=== PATIENT | female | born 1990 | race Hispanic/Latino ===

== ENCOUNTER 2016-10-25 20:20 | Emergency (ER) | payer MEDICAID ==
[2016-10-25 20:27] VITALS: BMI 38.5
--- NOTE | 2016-10-25 21:14 | ED PDOC ---
Arrival/HPI - General Chief Complaint: Chest Pain Time Seen by Provider: 10/25/16 20:24 Historian: Patient - History of Present Illness Narrative History of Present Illness (Text): 21:14 Leatha Michael is a 25 year old female, P:2 A:2 currently 9 weeks , who presents to the Emergency department complaining of fever and chills for the past few days. Patient also complaining of abdominal cramping and positional chest discomfort, worsened with movement. Intermittent nonproductive cough.Patient was seen by her OBGYN for similar complaints. Patient denies any shortness of breath, nausea, vomiting, diarrhea, urinary symptoms, vaginal bleeding, vaginal discharge, back pain, neck pain, headache, dizziness, or any other complaints. Time/Duration: Other Symptom Onset: Gradual Symptom Course: Unchanged Activities at Onset: Rest, Light Context: Home Past Medical History - Provider Review Nursing Documentation Reviewed: Yes - Infectious Disease Hx of Infectious Diseases: None - Cardiac Hx Cardiac Disorders: Yes (irregular hear rate) - Pulmonary Hx Respiratory Disorders: No - Neurological Hx Neurological Disorder: No Hx Alzheimer's Disease: No - HEENT Hx HEENT Disorder: No - Renal Hx Renal Disorder: No - Endocrine/Metabolic Hx Endocrine Disorders: No - Hematological/Oncological Hx Blood Disorders: No - Integumentary Hx Dermatological Disorder: No - Musculoskeletal/Rheumatological Hx Musculoskeletal Disorders: No - Gastrointestinal Hx Gastrointestinal Disorders: No - Genitourinary/Gynecological Hx Genitourinary Disorders: No - Psychiatric Hx Psychophysiologic Disorder: No Hx Substance Use: No - Surgical History Other/Comment: DNC, gallbladder - Anesthesia Hx Anesthesia: No Hx Anesthesia Reactions: No Hx Malignant Hyperthermia: No Family/Social History - Physician Review Nursing Documentation Reviewed: Yes Family/Social History: No Known Family HX Smoking Status: Never Smoked Hx Alcohol Use: No Hx Substance Use: No Allergies/Home Meds Allergies/Adverse Reactions: Allergies Penicillins Allergy (Verified 10/25/16 20:27) RASH Sulfa (Sulfonamide Antibiotics) Allergy (Verified 10/25/16 20:27) RASH Review of Systems - Physician Review All systems were reviewed & negative as marked: Yes - Review of Systems Constitutional: Fevers, Other (+chills) Eyes: Normal ENT: Normal Respiratory: Cough Cardiovascular: Chest Pain Gastrointestinal: Abdominal Pain. absent: Constipation, Diarrhea, Nausea, Vomiting Genitourinary Female: Normal. absent: Dysuria, Frequency, Hematuria, Urine Output Changes, Vaginal Bleeding, Vaginal Discharge Musculoskeletal: Normal. absent: Back Pain, Neck Pain Skin: Normal. absent: Rash Neurological: Normal. absent: Headache, Dizziness Endocrine: Normal Hemo/Lymphatic: Normal Psychiatric: Normal Physical Exam Vital Signs Reviewed: Yes Vital Signs Temp Pulse Resp BP Pulse Ox 10/25/16 20:27 98.1 F 78 18 121/73 100 Temperature: Afebrile Blood Pressure: Normal Pulse: Regular Respiratory Rate: Normal Appearance: Positive for: Well-Appearing, Non-Toxic, Comfortable Pain Distress: None Mental Status: Positive for: Alert and Oriented X 3 - Systems Exam Head: Present: Atraumatic, Normocephalic Pupils: Present: PERRL Extroacular Muscles: Present: EOMI Conjunctiva: Present: Normal Mouth: Present: Moist Mucous Membranes Neck: Present: Normal Range of Motion Respiratory/Chest: Present: Clear to Auscultation, Good Air Exchange. No: Respiratory Distress, Accessory Muscle Use Cardiovascular: Present: Regular Rate and Rhythm, Normal S1, S2. No: Murmurs Abdomen: Present: Normal Bowel Sounds. No: Tenderness, Distention, Peritoneal Signs Back: Present: Normal Inspection Upper Extremity: Present: Normal Inspection. No: Cyanosis, Edema Lower Extremity: Present: Normal Inspection. No: Edema Neurological: Present: GCS=15, CN II-XII Intact, Speech Normal Skin: Present: Warm, Dry, Normal Color. No: Rashes Psychiatric: Present: Alert, Oriented x 3, Normal Insight, Normal Concentration Medical Decision Making ED Course and Treatment: 10/25/16 21:14 Impression: 25 year old female complaining of fever, chills, positional chest pain worsened with movement, and abdominal cramping for 2 days. Plan: -- EKG -- Labs, cardiac enzymes, beta-HCG -- Urinalysis, urine cultures -- US Age -- Reassess and disposition Progress Notes: Reviewed EKG, NSR at 73 bpm. LAD. No acute changes. 10/25/16 23:08 Reviewed sono, US Age shows: 10 week 6 day single living intrauterine gestation with estimated date of delivery 05/17/17. 10/25/16 23:15 Reviewed labs, within normal limits, beta-hc,186. On re-evaluation, the patient feels better and is in no acute distress. I have discussed the results and plan with the patient, who expresses understanding. Patient in agreement with plan to discharged home. Patient is stable for discharge. Patient was instructed to follow up with physician/OBGYN/clinic in 1- 2 days or return if symptoms worsen or new concerning symptoms arise. - Lab Interpretations Lab Results: 10/25/16 21:01 10/25/16 21:01 Lab Results 10/25/16 21:11: Urine Color Yellow, Urine Appearance Clear, Urine pH 7.0, Ur Specific [place] 1.020, Urine Protein Negative, Urine Glucose (UA) Negative, Urine Ketones Negative, Urine Blood Negative, Urine Nitrate Negative, Urine Bilirubin Negative, Urine Urobilinogen 0.2, Ur Leukocyte Esterase Trace H, Urine RBC Negative, Urine WBC 0 - 2, Ur Epithelial Cells 1 - 3, Urine Bacteria Few, Urine HCG, Qual Positive 10/25/16 21:01: WBC 6.7, RBC 4.10, Hgb 12.3, Hct 36.1, MCV 88.0, MCH 30.0, MCHC 34.1, RDW 13.2, Plt Count 186, MPV 10.0, PT 10.1, INR 0.94, APTT 26.9, Sodium 135, Potassium 3.8, Chloride 104, Carbon Dioxide 22, Anion Gap 13, BUN 11, Creatinine 0.6, Est GFR ( Amer) > 60, Est GFR (Non-Af Amer) > 60, Random Glucose 85, Calcium 9.3, Total Bilirubin 0.8, AST 15, ALT 11, Alkaline Phosphatase 55, Lactate Dehydrogenase 337, Total Creatine Kinase 36, Troponin I < 0.01, Total Protein 7.0, Albumin 3.9, Globulin 3.1, Albumin/Globulin Ratio 1.3 , Beta HCG, Quant 08037.00 H I have reviewed the lab results: Yes - RAD Interpretation Narrative RAD Interpretations (Text): US Age shows: Uterus: Uterus measures approximately 15 x 7 x 11 cm. Gestation: There is a single intrauterine gestation. Gestational sac has mean diameter 54.6 mm. [place] rump length measures approximately 32.5 mm. A yolk sac is present, internal diameter measures approximately 3.5 mm. Adnexa: Left ovary measures approximately 3.51 x 2.5 x 3 cm.There is expected blood flow on Doppler imaging. Right ovary could not be identified IMPRESSION: 10 week 6 day single living intrauterine gestation with estimated date of delivery 05/17/17. 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 Rate : 73 BPM Rhythm : NSR Interpretation : LAD. No acute changes Comparison : No previous EKG for comparison. Interpreted by ED Physician: Yes Type: 12 lead EKG - Medication Orders Current Medication Orders: Discontinued Medications Ondansetron HCl (Zofran Inj) 4 mg IVP ONCE ONE Stop: 10/25/16 22:12 Last Admin: 10/25/16 22:21 Dose: 4 MG IVP Administration Document 10/25/16 22:21 (Rec: 10/25/16 22:21 MR [id number]) Charges for Administration # of IVP Administrations 1 - Scribe Statement The provider has reviewed the documentation as recorded by the Jose Guadalupe Barrett Provider Attestation: All medical record entries made by the Jose Guadalupe were at my direction and personally dictated by me. I have reviewed the chart and agree that the record accurately reflects my personal performance of the history, physical exam, medical decision making, and the department course for this patient. I have also personally directed, reviewed, and agree with the discharge instructions and disposition. Disposition/Present on Arrival - Present on Arrival Any Indicators Present on Arrival: No History of DVT/PE: No History of Uncontrolled Diabetes: No Urinary Catheter: No History of Decub. Ulcer: No History Surgical Site Infection Following: None - Disposition Have Diagnosis and Disposition been Completed?: Yes Diagnosis: First trimester , Bronchitis, Myalgia Disposition: HOME/ ROUTINE Disposition Time: 23:32 Patient Plan: Discharge Condition: GOOD Discharge Instructions (ExitCare): (ED), Acute Bronchitis (ED), Musculoskeletal Pain (ED) Additional Instructions: Rest/drink plenty of fluids/medication as prescribed/tylenol as directed/follow up with your planning specialist doctor this week Prescriptions: Azithromycin [Zithromax] 250 mg PO DAILY #6 tab
[2016-10-25 21:27] LABS: URINE BILIRUBIN NEGATIVE (NEGATIVE); URINE BLOOD NEGATIVE (NEGATIVE); URINE GLUCOSE (UA) NEGATIVE (NEGATIVE); URINE KETONE NEGATIVE (NEGATIVE); URINE LEUKOCYTE ESTERASE TRACE Leu/uL (NEGATIVE); URINE PROTEIN NEGATIVE mg/dL (<30 mg/dL); URINE UROBILINOGEN 0.2 E.U./dL (<1 E.U./dL)
[2016-10-25 21:27] LABS: HEMATOCRIT 36.1 % (36.0-48.0); MEAN CORPUSCULAR HGB CONC 34.1 g/dl (31.0-37.0); RED CELL DISTRIBUTION WIDTH 13.2 % (11.5-14.5); WHITE BLOOD COUNT 6.7 10^3/ul (4.5-11.0)
[2016-10-25 21:28] LABS: ALB/GLOB RATIO 1.3 (1.1-1.8); ALKALINE PHOSPHATASE 55 U/L (38-133); ALT/SGPT 11 U/L (7-56); AST/SGOT 15 U/L (15-39); BILIRUBIN,TOTAL 0.8 mg/dL (0.2-1.3); BLOOD UREA NITROGEN 11 mg/dL (7-21); CALCIUM 9.3 mg/dL (8.4-10.5); CARBON DIOXIDE 22 mmol/L (21-33); CHLORIDE 104 mmol/L (98-107); GFR AFRICAN-AMERICAN > 60; GLUCOSE,RANDOM 85 mg/dL (70-110); POTASSIUM 3.8 mmol/L (3.6-5.0); SODIUM 135 mmol/L (132-148)
[2016-10-25 21:30] LABS: URINE APPEARANCE CLEAR (CLEAR); URINE COLOR YELLOW (YELLOW)
[2016-10-25 21:39] LABS: TROPONIN I < 0.01 ng/mL
[2016-10-25 21:40] LABS: INR 0.94 (0.93-1.08); PARTIAL THROMBOPLASTIN TIME 26.9 Seconds (23.7-30.8)
[2016-10-25 21:41] LABS: URINE BACTERIA FEW (NEG); URINE RBC NEGATIVE /hpf (0-2); URINE WBC 0 - 2 /hpf (0-6)
--- NOTE | 2016-10-25 22:58 | US ---
EXAM: US First Trimester, Transabdominal. CLINICAL HISTORY: 25 years old, female; Pain; complicated by abdominal or pelvic pain; Lower; First trimester; Gestational age or lmp: 08/19/2016, 9 weeks 4 days by dates; TECHNIQUE: Real-time transabdominal obstetrical ultrasound of the maternal pelvis and a first trimester with image documentation. EXAM DATE/TIME: 10/25/2016 8:40 PM COMPARISON: There are no prior studies for comparison. FINDINGS: Uterus: Uterus measures approximately 15 x 7 x 11 cm. Gestation: There is a single intrauterine gestation. Gestational sac has mean diameter 54.6 mm. [place] rump length measures approximately 32.5 mm. A yolk sac is present, internal diameter measures approximately 3.5 mm. Adnexa: Left ovary measures approximately 3.51 x 2.5 x 3 cm.There is expected blood flow on Doppler imaging. Right ovary could not be identified IMPRESSION: 10 week 6 day single living intrauterine gestation with estimated date of delivery 05/17/17
[2016-10-26 00:22] VITALS: BP 102/76; PULSE 80; RESP 17; TEMP 98.5; O2SAT 96
--- NOTE | 2016-10-26 20:07 | CARD ---
APPROVED REPORT EKG Measurement Heart [id number] <Conclusion> Normal sinus rhythm Left axis deviation Abnormal ECG
== END 2016-10-26 00:22 | disposition home or self-care (01) ==
LOC: ED 20:20 → MERGE 20:20 → ED 10-26 00:22
DX: O26.891 Other specified pregnancy related conditions, first trimester (principal); Z3A.09 9 weeks gestation of pregnancy; M79.1 Myalgia; J40 Bronchitis, not specified as acute or chronic
CPT/HCPCS: 76815; 80053; 81001; 82550; 83615; 84484; 84702; 84703; 85027; 85610; 85730; 87086; 93005; 96374; 99284; J2405

== ENCOUNTER 2016-11-09 20:35 | Observation (INO) | payer MEDICAID ==
[2016-11-09 20:51] VITALS: BMI 39.2
--- NOTE | 2016-11-09 21:36 | ED PDOC ---
Arrival/HPI - General Chief Complaint: Abdominal Pain Time Seen by Provider: 11/09/16 21:18 Historian: Patient - History of Present Illness Narrative History of Present Illness (Text): 11/09/16 21:36 Leatha Michael is a 25 year old female, P:2 A:2 currently 12 weeks , who presents to the Emergency department complaining of abdominal cramping for the past few days. Patient also reports associated nausea, 2 episodes of vomiting, and diarrhea. Patient denies any vaginal discharge, vaginal bleeding, fever, chills, chest pain, shortness of breath, urinary symptoms, back pain, neck pain, headache, dizziness, or any other complaints. Time/Duration: Other (few days) Symptom Onset: Gradual Symptom Course: Unchanged Activities at Onset: Rest, Light Context: Home Past Medical History - Provider Review Nursing Documentation Reviewed: Yes - Infectious Disease Hx of Infectious Diseases: None - Cardiac Hx Cardiac Disorders: Yes (irregular hear rate) - Pulmonary Hx Respiratory Disorders: No - Neurological Hx Neurological Disorder: No Hx Alzheimer's Disease: No - HEENT Hx HEENT Disorder: No - Renal Hx Renal Disorder: No - Endocrine/Metabolic Hx Endocrine Disorders: No - Hematological/Oncological Hx Blood Disorders: No - Integumentary Hx Dermatological Disorder: No - Musculoskeletal/Rheumatological Hx Musculoskeletal Disorders: No - Gastrointestinal Hx Gastrointestinal Disorders: No - Genitourinary/Gynecological Hx Genitourinary Disorders: No - Psychiatric Hx Psychophysiologic Disorder: No Hx Substance Use: No - Surgical History Other/Comment: DNC, gallbladder - Anesthesia Hx Anesthesia: No Hx Anesthesia Reactions: No Hx Malignant Hyperthermia: No Family/Social History - Physician Review Nursing Documentation Reviewed: Yes Family/Social History: No Known Family HX Smoking Status: Never Smoked Hx Alcohol Use: No Hx Substance Use: No Allergies/Home Meds Allergies/Adverse Reactions: Allergies Penicillins Allergy (Verified 10/25/16 20:27) RASH Sulfa (Sulfonamide Antibiotics) Allergy (Verified 10/25/16 20:27) RASH Review of Systems - Physician Review All systems were reviewed & negative as marked: Yes - Review of Systems Constitutional: Normal. absent: Fevers Eyes: Normal ENT: Normal Respiratory: Normal. absent: SOB, Cough Cardiovascular: Normal. absent: Chest Pain Gastrointestinal: Abdominal Pain, Diarrhea, Nausea, Vomiting Genitourinary Female: Normal. absent: Dysuria, Frequency, Hematuria, Urine Output Changes, Vaginal Bleeding, Vaginal Discharge Musculoskeletal: Normal. absent: Back Pain, Neck Pain Skin: Normal. absent: Rash Neurological: Normal. absent: Headache, Dizziness Endocrine: Normal Hemo/Lymphatic: Normal Psychiatric: Normal Physical Exam Vital Signs Reviewed: Yes Vital Signs Temp Pulse Resp BP Pulse Ox 11/10/16 06:00 78 16 118/72 11/10/16 04:00 84 18 106/64 11/10/16 02:00 88 18 112/66 11/10/16 00:43 98.0 F 92 H 17 100/58 L 97 11/09/16 20:52 98.2 F 98 H 17 118/72 98 Temperature: Afebrile Blood Pressure: Normal Pulse: Regular Respiratory Rate: Normal Appearance: Positive for: Well-Appearing, Non-Toxic, Comfortable Pain Distress: None Mental Status: Positive for: Alert and Oriented X 3 - Systems Exam Head: Present: Atraumatic, Normocephalic Pupils: Present: PERRL Extroacular Muscles: Present: EOMI Conjunctiva: Present: Normal Mouth: Present: Moist Mucous Membranes Neck: Present: Normal Range of Motion Respiratory/Chest: Present: Clear to Auscultation, Good Air Exchange. No: Respiratory Distress, Accessory Muscle Use Cardiovascular: Present: Regular Rate and Rhythm, Normal S1, S2. No: Murmurs Abdomen: Present: Normal Bowel Sounds. No: Tenderness, Distention, Peritoneal Signs Back: Present: Normal Inspection Upper Extremity: Present: Normal Inspection. No: Cyanosis, Edema Lower Extremity: Present: Normal Inspection. No: Edema Neurological: Present: GCS=15, CN II-XII Intact, Speech Normal Skin: Present: Warm, Dry, Normal Color. No: Rashes Psychiatric: Present: Alert, Oriented x 3, Normal Insight, Normal Concentration Medical Decision Making ED Course and Treatment: 11/09/16 21:36 Impression: 25 year old female complaining of lower abdominal cramping, nausea, vomiting, and diarrhea. Differential Diagnosis included but are not limited to: Plan: -- US Age -- Labs, Beta-HCG, lipase -- Urinalysis -- IV fluids -- Zofran -- Reassess and disposition Prior Visits: Notes and results from previous visits were reviewed. Progress Notes: 11/09/16 23:41 Reviewed sono, US Age shows: Single live IUP 11 weeks 5 days + / -6 days. - Lab Interpretations Lab Results: 11/09/16 21:50 11/09/16 21:50 Lab Results 11/09/16 21:50: WBC 7.1, RBC 4.02, Hgb 12.1, Hct 35.0 L, MCV 87.1, MCH 30.1, MCHC 34.6, RDW 13.2, Plt Count 173, MPV 10.1, Sodium 134, Potassium 3.4 L, Chloride 103, Carbon Dioxide 25, Anion Gap 9 L, BUN 7, Creatinine 0.6, Est GFR ( Amer) > 60, Est GFR (Non-Af Amer) > 60, Random Glucose 85, Calcium 8.8, Total Bilirubin 1.1, AST 17, ALT 26, Alkaline Phosphatase 59, Total Protein 7.0 , Albumin 3.7, Globulin 3.2, Albumin/Globulin Ratio 1.2, Lipase 67, Beta HCG, Quant 07765.00 H I have reviewed the lab results: Yes - RAD Interpretation Narrative RAD Interpretations (Text): US Age shows: Prior ultrasound 10/25/2016 demonstrated a single IUP 10 weeks 6 day. The uterus measures 18 x 8 by 11 cm. The cervix measures 4 cm. There is a live intrauterine . Measurements correspond to a gestational age of 11 weeks 5 days + / -6 days. A heart rate of 151 - 168 beats per minute was obtained. The maternal right ovary is normal. The maternal left ovary is normal. Color flow and doppler vascular waveforms were demonstrated to both ovaries. IMPRESSION: Single live IUP 11 weeks 5 days + / -6 days. 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 - Medication Orders Current Medication Orders: Discontinued Medications Acetaminophen (Tylenol 325mg Tab) 650 mg PO STAT STA Stop: 11/10/16 00:48 Last Admin: 11/10/16 00:59 Dose: 650 MG Famotidine (Pepcid) 20 mg IVP STAT STA Stop: 11/10/16 00:48 Last Admin: 11/10/16 00:59 Dose: 20 MG IVP Administration Document 11/10/16 00:59 FROY (Rec: 11/10/16 00:59 FROY [id number]) Charges for Administration # of IVP Administrations 1 Sodium Chloride (Sodium Chloride 0.9%) 1,000 mls @ 999 mls/hr IV .Q1H1M STA Stop: 11/09/16 22:43 Last Admin: 11/09/16 22:01 Dose: 999 MLS/HR eMAR Start Stop Document 11/09/16 22:01 FROY (Rec: 11/09/16 22:02 [id number] [id number]) Intravenous Solution Start Date 11/09/16 Start Time 22:02 End Date 11/09/16 End time 23:02 Total Infusion Time 60 Sodium Chloride (Sodium Chloride 0.9%) 1,000 mls @ 999 mls/hr IV .Q1H1M STA Stop: 11/10/16 01:47 Last Admin: 11/10/16 01:00 Dose: 999 MLS/HR eMAR Start Stop Document 11/10/16 01:00 FROY (Rec: 11/10/16 01:00 FROY [id number]) Intravenous Solution Start Date 11/10/16 Start Time 01:00 End Date 11/10/16 End time 02:00 Total Infusion Time 60 Ondansetron HCl (Zofran Inj) 4 mg IVP ONCE ONE Stop: 11/09/16 21:44 Last Admin: 11/09/16 22:01 Dose: 4 MG IVP Administration Document 11/09/16 22:01 FROY (Rec: 11/09/16 22:01 FROY [id number]) Charges for Administration # of IVP Administrations 1 ED OBSERVATION Discharge: Yes Date of observation admission: 11/09/16 Time of observation admission: 22:00 - Observation admission statement Patient is being placed in observation because:: evaluation of abdominal pain/nausea/vomiting - Goals of Observation Goals of observation are:: determine cause/treat symptoms - Progress Note Progress Note: 11/09/16 22:00 Pt resting comfortably, in no acute distress. 11/10/16 00:00 Pt resting comfortably, in no acute distress. 11/10/16 02:00 Pt resting comfortably, in no acute distress. 11/10/16 04:00 Pt resting comfortably, in no acute distress. 11/10/16 06:22 On re-evaluation, the patient feels better and is in no acute distress. I have discussed the results and plan with the patient, who expresses understanding. Patient in agreement with plan to discharged home. Patient is stable for discharge. Patient was instructed to follow up with physician/OBGYN/clinic in 1- 2 days or return if symptoms worsen or new concerning symptoms arise. - Scribe Statement The provider has reviewed the documentation as recorded by the Jose Guadalupe Barrett Provider Attestation: All medical record entries made by the Jose Guadalupe were at my direction and personally dictated by me. I have reviewed the chart and agree that the record accurately reflects my personal performance of the history, physical exam, medical decision making, and the department course for this patient. I have also personally directed, reviewed, and agree with the discharge instructions and disposition. Disposition/Present on Arrival - Present on Arrival Any Indicators Present on Arrival: No History of DVT/PE: No History of Uncontrolled Diabetes: No Urinary Catheter: No History of Decub. Ulcer: No History Surgical Site Infection Following: None - Disposition Have Diagnosis and Disposition been Completed?: Yes Diagnosis: Gastroenteritis Disposition: HOME/ ROUTINE Disposition Time: 06:24 Patient Plan: Discharge Condition: GOOD
[2016-11-09] MEDS ORDERED: Sodium Chloride 0.9% 1,000 ML IV STA (21:43)
[2016-11-09 22:10] LABS: MEAN CELL VOLUME 87.1 fL (80.0-105.0); MEAN CORPUSCULAR HEMOGLOBIN 30.1 pg (25.0-35.0); MEAN CORPUSCULAR HGB CONC 34.6 g/dl (31.0-37.0); MEAN PLATELET VOLUME 10.1 fl (7.0-11.0); RED CELL DISTRIBUTION WIDTH 13.2 % (11.5-14.5); WHITE BLOOD COUNT 7.1 10^3/ul (4.5-11.0)
[2016-11-09 22:20] LABS: ALB/GLOB RATIO 1.2 (1.1-1.8); ALKALINE PHOSPHATASE 59 U/L (38-133); ALT/SGPT 26 U/L (7-56); AST/SGOT 17 U/L (15-39); BILIRUBIN,TOTAL 1.1 mg/dL (0.2-1.3); BLOOD UREA NITROGEN 7 mg/dL (7-21); CALCIUM 8.8 mg/dL (8.4-10.5); CARBON DIOXIDE 25 mmol/L (21-33); CHLORIDE 103 mmol/L (98-107); GFR AFRICAN-AMERICAN > 60; GLUCOSE,RANDOM 85 mg/dL (70-110); LIPASE 67 U/L (23-300); POTASSIUM 3.4 mmol/L (3.6-5.0); SODIUM 134 mmol/L (132-148)
--- NOTE | 2016-11-09 23:27 | US ---
EXAM: US After First Trimester, Transabdominal CLINICAL HISTORY: 25 years old, female; Pain; Other: Cramping; Gestational age or lmp: 08/19/2016; TECHNIQUE: Real-time transabdominal obstetrical ultrasound of the maternal pelvis and a second or third trimester with image documentation. EXAM DATE/TIME: 11/09/2016 9:45 PM COMPARISON: US - AGE 310/25/2016 9:57:23 PM FINDINGS: Prior ultrasound 10/25/2016 demonstrated a single IUP 10 weeks 6 day. The uterus measures 18 x 8 by 11 cm. The cervix measures 4 cm. There is a live intrauterine . Measurements correspond to a gestational age of 11 weeks 5 days + / -6 days. A heart rate of 151 - 168 beats per minute was obtained. The maternal right ovary is normal. The maternal left ovary is normal. Color flow and doppler vascular waveforms were demonstrated to both ovaries. IMPRESSION: Single live IUP 11 weeks 5 days + / -6 days.
[2016-11-10 00:44] VITALS: TEMP 98; O2SAT 97
[2016-11-10] MEDS ORDERED: Sodium Chloride 0.9% 1,000 ML IV STA (00:47)
[2016-11-10 01:05] LABS: URINE BILIRUBIN NEGATIVE (NEGATIVE); URINE BLOOD NEGATIVE (NEGATIVE); URINE GLUCOSE (UA) NEGATIVE (NEGATIVE); URINE KETONE NEGATIVE (NEGATIVE); URINE LEUKOCYTE ESTERASE NEGATIVE Leu/uL (NEGATIVE); URINE PROTEIN NEGATIVE mg/dL (<30 mg/dL)
[2016-11-10 01:06] LABS: URINE APPEARANCE CLEAR (CLEAR); URINE COLOR YELLOW (YELLOW)
[2016-11-10 06:31] VITALS: BP 118/72; PULSE 78; RESP 16
== END 2016-11-10 06:28 | disposition home or self-care (01) ==
LOC: ED 20:35 → EROBSV 22:00
PROVIDERS: ADMIT Emergency Medicine; ATTEND Emergency Medicine
DX: K52.9 Noninfective gastroenteritis and colitis, unspecified (principal); O26.91 Pregnancy related conditions, unspecified, first trimester; Z3A.11 11 weeks gestation of pregnancy
CPT/HCPCS: 76815; 80053; 81003; 83690; 84702; 85027; 96361; 96374; 96375; 99281; G0378; J2405; J7040

== ENCOUNTER 2016-12-30 15:22 | Emergency (ER) | payer MEDICAID ==
[2016-12-30 15:23] VITALS: BMI 39.2
--- NOTE | 2016-12-30 15:45 | ED PDOC ---
Arrival/HPI - General Time Seen by Provider: 12/30/16 15:38 Historian: Patient - History of Present Illness Narrative History of Present Illness (Text): 12/30/16 15:58 26 year old female, 20 weeks , whose past medical history includes atrial fibrillation, taken off Coumadin due to , presents to the emergency department with midsternal chest pain that began 1-2 hours prior to arrival. Patient describes the pain as sharp, which began while lying down. Patient also reports leg swelling L worse than R. Denies vaginal bleeding. Patient states she had similar chest pain 1 month ago and is currently undergoing evaluation by valve inspector and recently underwent 24 hour holter monitoring, does not have result. Had echo recently. Patient reports the pain has improved. No other complaints. 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 Time/Duration: 1-3 hours Symptom Onset: Sudden Symptom Course: Improving Modifying Factors (Text): None Associated Symptoms (Text): None Past Medical History - Provider Review Nursing Documentation Reviewed: Yes - Infectious Disease Hx of Infectious Diseases: None - Cardiac Hx Cardiac Disorders: Yes (irregular hear rate) - Pulmonary Hx Respiratory Disorders: No - Neurological Hx Neurological Disorder: No Hx Alzheimer's Disease: No - HEENT Hx HEENT Disorder: No - Renal Hx Renal Disorder: No - Endocrine/Metabolic Hx Endocrine Disorders: No - Hematological/Oncological Hx Blood Disorders: No - Integumentary Hx Dermatological Disorder: No - Musculoskeletal/Rheumatological Hx Musculoskeletal Disorders: No - Gastrointestinal Hx Gastrointestinal Disorders: No - Genitourinary/Gynecological Hx Genitourinary Disorders: No - Psychiatric Hx Psychophysiologic Disorder: No Hx Substance Use: No - Surgical History Other/Comment: DNC, gallbladder - Anesthesia Hx Anesthesia: No Hx Anesthesia Reactions: No Hx Malignant Hyperthermia: No Family/Social History - Physician Review Nursing Documentation Reviewed: Yes Family/Social History: Unknown Family HX Smoking Status: Never Smoked Hx Alcohol Use: No Hx Substance Use: No Allergies/Home Meds Allergies/Adverse Reactions: Allergies Penicillins Allergy (Verified 12/30/16 16:37) RASH Sulfa (Sulfonamide Antibiotics) Allergy (Verified 12/30/16 16:37) RASH Home Medications: Home Meds Medication Instructions Recorded Confirmed Vit Calc,Iron,Folic 1 each PO DAILY 12/30/16 12/30/16 [ Vitamins] Review of Systems - Physician Review All systems were reviewed & negative as marked: Yes - Review of Systems Respiratory: absent: SOB Cardiovascular: Chest Pain, Edema Genitourinary Female: absent: Vaginal Bleeding Physical Exam - Physical Exam Narrative Physical Exam (Text): Constitutional: No acute distress. Head: Normocephalic. Atraumatic. Eyes: PERRL. ENT: Moist mucous membranes. Neck: Supple. Cardiovascular: Regular rate. Chest: Reproducible chest tenderness, reproducible pain with pectoral muscle use Respiratory: Clear to auscultation bilaterally. GI: Soft. Nontender. Nondistended. Back: No CVA tenderness. Musculoskeletal: No tenderness or swelling of extremities. Skin: No rash. Neurologic: Alert, no focal deficit. Vital Signs Reviewed: Yes Vital Signs Temp Pulse Resp BP Pulse Ox 12/30/16 15:51 98.4 F 85 20 113/70 98 Temperature: Afebrile Blood Pressure: Normal Pulse: Regular Respiratory Rate: Normal Appearance: Positive for: Well-Appearing, Non-Toxic, Comfortable Pain Distress: None Mental Status: Positive for: Alert and Oriented X 3 Medical Decision Making ED Course and Treatment: Impression: 26 year old female, 20 weeks , whose past medical history includes atrial fibrillation, taken off Coumadin due to , presents to the emergency department with midsternal chest pain that began 1-2 hours prior to arrival with report of leg swelling. Differential Diagnosis included but are not limited to: Plan: -- EKG, US duplex lower extremities -- Labs -- Reassess and disposition Prior Visits: Notes and results from previous visits were reviewed. Patient last seen in the ED on 11/09/16 for abdominal pain and discharged home. Progress Notes: EKG shows NSR at 85 BPM, no ST/T wave changes, interpreted by me. 12/30/16 17:29 As per tech, ultrasound negative for DVT bilaterally. D dimer negative. labs unremarkable. Patient with reproducible chest pain and under the care of a valve inspector. I had a long discussion with the patient concerning differential diagnosis (DVT/PE/ACS) and the risk of various studies on fetus. Patient was agreeable to d dimer and US to evaluate for PE/DVT. She is comfortable with discharge home and follow up with her valve inspector. Return to ER for worsening dyspnea, pain, fever, vomiting, bleeding, or any other problem. - Lab Interpretations Lab Results: 12/30/16 15:45 12/30/16 15:45 Lab Results 12/30/16 15:45: Sodium 137, Potassium 3.5 L, Chloride 108, Carbon Dioxide 22, Anion Gap 11, BUN 8, Creatinine 0.6, Est GFR ( Amer) > 60, Est GFR (Non- Af Amer) > 60, Random Glucose 97, Calcium 8.9, Total Bilirubin 1.0, AST 15, ALT 26, Alkaline Phosphatase 62, Total Protein 6.9, Albumin 3.7, Globulin 3.1, Albumin/Globulin Ratio 1.2 12/30/16 15:45: D-Dimer, Quantitative 0.35 12/30/16 15:45: WBC 6.9, RBC 3.90, Hgb 12.1, Hct 34.7 L, MCV 89.0, MCH 31.0, MCHC 34.9, RDW 13.3, Plt Count 184, MPV 10.8, Gran % 72.3 H, Lymph % (Auto) 21.5 L, [place] % (Auto) 5.5, Eos % (Auto) 0.6 L, Baso % (Auto) 0.1, Gran # 5.01, Lymph # 1.5, Kinney # 0.4, Eos # 0.0, Baso # 0.01 - RAD Interpretation Radiology Orders: 12/30/16 16:05 DUPLEX LOWER EXTRM VEIN BILAT [US] Stat - EKG Interpretation Interpreted by ED Physician: Yes Type: 12 lead EKG - Scribe Statement The provider has reviewed the documentation as recorded by the Jose Guadalupe Tavares Provider Scribe Attestation: All medical record entries made by the Jose Guadalupe were at my direction and personally dictated by me. I have reviewed the chart and agree that the record accurately reflects my personal performance of the history, physical exam, medical decision making, and the department course for this patient. I have also personally directed, reviewed, and agree with the discharge instructions and disposition. Disposition/Present on Arrival - Present on Arrival Any Indicators Present on Arrival: No History of DVT/PE: No History of Uncontrolled Diabetes: No Urinary Catheter: No History Surgical Site Infection Following: None - Disposition Have Diagnosis and Disposition been Completed?: Yes Diagnosis: Chest pain Disposition: HOME/ ROUTINE Disposition Time: 17:29 Patient Plan: Discharge Condition: STABLE Discharge Instructions (ExitCare): Chest Pain (ED) Referrals: Arnulfo Duncan MD [Primary Care Provider] - Follow up with primary
[2016-12-30 15:52] VITALS: TEMP 98.4; O2SAT 98
[2016-12-30 16:11] LABS: ADD MANUAL DIFF? NO
[2016-12-30 16:17] LABS: BASO # 0.01 K/mm3 (0.0-2.0); BASO % 0.1 % (0.0-3.0); EOS % 0.6 % (1.5-5.0); GRAN # 5.01 (1.4-6.5); GRAN % 72.3 % (50.0-68.0); HEMATOCRIT 34.7 % (36.0-48.0); LYMPH # 1.5 (1.2-3.4); LYMPH % 21.5 % (22.0-35.0); MEAN CORPUSCULAR HGB CONC 34.9 g/dl (31.0-37.0); MEAN PLATELET VOLUME 10.8 fl (7.0-11.0); MONO # 0.4 (0.1-0.6); MONO % 5.5 % (1.0-6.0); PLATELET COUNT 184 10^3/uL (120.0-450.0); RED CELL DISTRIBUTION WIDTH 13.3 % (11.5-14.5); WHITE BLOOD COUNT 6.9 10^3/ul (4.5-11.0)
[2016-12-30 16:23] LABS: ALB/GLOB RATIO 1.2 (1.1-1.8); ALKALINE PHOSPHATASE 62 U/L (38-133); ALT/SGPT 26 U/L (7-56); AST/SGOT 15 U/L (15-39); BLOOD UREA NITROGEN 8 mg/dL (7-21); CALCIUM 8.9 mg/dL (8.4-10.5); CARBON DIOXIDE 22 mmol/L (21-33); CHLORIDE 108 mmol/L (95-110); GFR AFRICAN-AMERICAN > 60; GLUCOSE,RANDOM 97 mg/dL (70-110); POTASSIUM 3.5 mmol/L (3.6-5.0); SODIUM 137 mmol/L (132-148); TOTAL PROTEIN 6.9 g/dL (5.8-8.3)
[2016-12-30 17:58] VITALS: BP 115/68; PULSE 79; RESP 18
--- NOTE | 2016-12-30 18:28 | US ---
HISTORY: Leg pain and swelling. Evaluate for DVT PHYSICIAN(S): Servando Robledo MD. TECHNIQUE: Duplex sonography and color-flow Doppler with graded compression were used to evaluate the deep venous systems of both lower extremities. FINDINGS: The visualized deep venous systems of both lower extremities are sonographically normal and compressible. Normal wave forms and augmentation are seen. There is no sonographic evidence for deep venous thrombosis in the visualized segments of both lower extremities. IMPRESSION: No sonographic evidence for deep venous thrombosis in the visualized segments of both lower extremities.
--- NOTE | 2016-12-31 14:13 | CARD ---
APPROVED REPORT EKG Measurement Heart [id number] <Conclusion> Normal sinus rhythm Low voltage QRS Borderline ECG
== END 2016-12-30 18:04 | disposition home or self-care (01) ==
LOC: ED 15:22
DX: R07.9 Chest pain, unspecified (principal); O26.92 Pregnancy related conditions, unspecified, second trimester; Z3A.20 20 weeks gestation of pregnancy

== ENCOUNTER 2017-06-23 20:11 | Observation (INO) | payer MEDICAID ==
[2017-06-23 20:21] VITALS: BMI 39.6
--- NOTE | 2017-06-23 21:07 | ED PDOC ---
Arrival/HPI - General Chief Complaint: Chest Pain Time Seen by Provider: 06/23/17 20:27 Historian: Patient - History of Present Illness Narrative History of Present Illness (Text): 06/23/17 21:03 26 year old female, whose past medical history includes hypertension, atrial fibrillation (diagnosed 1 year ago), anemia and syncope, presents to the emergency department complaining of chest pain and dizziness for several days. Patient reports she fall last night. She states she was supposedly getting holter monitor by her cardiologists Dr. [facility]. Patient had rapid ventricular reasoned and was on Atenolol, but stopped due to and was not placed on it again. Patient reports loss of appetite recently and dry cough, but denies any fever, chills, nausea, vomiting, any history of GI bleed, denies having stress test done, and any other complaints. 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 Time/Duration: Other (several days) Symptom Onset: Gradual Activities at Onset: Light Context: Home Past Medical History - Provider Review Nursing Documentation Reviewed: Yes - Infectious Disease Hx of Infectious Diseases: None - Cardiac Hx Cardiac Disorders: Yes (irregular hear rate) - Pulmonary Hx Respiratory Disorders: No - Neurological Hx Alzheimer's Disease: No - HEENT Hx HEENT Disorder: No - Renal Hx Renal Disorder: No - Endocrine/Metabolic Hx Endocrine Disorders: No - Hematological/Oncological Hx Blood Disorders: No - Integumentary Hx Dermatological Disorder: No - Musculoskeletal/Rheumatological Hx Musculoskeletal Disorders: No - Gastrointestinal Hx Gastrointestinal Disorders: No - Genitourinary/Gynecological Hx Genitourinary Disorders: No - Psychiatric Hx Psychophysiologic Disorder: No Hx Substance Use: No - Surgical History Hx Cholecystectomy: Yes - Anesthesia Hx Anesthesia: No Hx Anesthesia Reactions: No Hx Malignant Hyperthermia: No Family/Social History - Physician Review Nursing Documentation Reviewed: Yes Family/Social History: No Known Family HX Smoking Status: Never Smoked Hx Alcohol Use: No Hx Substance Use: No Allergies/Home Meds Allergies/Adverse Reactions: Allergies Penicillins Allergy (Verified 03/17/17 21:45) RASH Sulfa (Sulfonamide Antibiotics) Allergy (Verified 03/17/17 21:45) RASH Home Medications: Home Meds Medication Instructions Recorded Confirmed Levothyroxine [Synthroid] 50 mcg PO DAILY 08/11/17 11/17/17 Review of Systems - Physician Review All systems were reviewed & negative as marked: Yes - Review of Systems Constitutional: absent: Fevers, Other (Chills) Respiratory: Cough (Dry cough) Cardiovascular: Chest Pain Gastrointestinal: Appetite Changes (Loss of appetite). absent: Nausea, Vomiting Physical Exam Vital Signs Reviewed: Yes Vital Signs Temp Pulse Resp BP Pulse Ox 06/23/17 21:45 55 L 16 120/71 97 06/23/17 20:34 98.2 F 58 L 22 124/81 96 Temperature: Afebrile Blood Pressure: Normal Pulse: Bradycardic Respiratory Rate: Normal Appearance: Positive for: Well-Appearing, Non-Toxic, Other (Obese) Pain Distress: None Mental Status: Positive for: Alert and Oriented X 3 - Systems Exam Head: Present: Atraumatic, Normocephalic Pupils: Present: PERRL Extroacular Muscles: Present: EOMI Conjunctiva: Present: Normal Mouth: Present: Moist Mucous Membranes Neck: Present: Normal Range of Motion Respiratory/Chest: Present: Clear to Auscultation, Good Air Exchange. No: Respiratory Distress, Accessory Muscle Use Cardiovascular: Present: Regular Rate and Rhythm, Normal S1, S2. No: Murmurs Abdomen: Present: Normal Bowel Sounds. No: Tenderness, Distention, Peritoneal Signs Back: Present: Normal Inspection Upper Extremity: Present: Normal Inspection. No: Cyanosis, Edema Lower Extremity: Present: Normal Inspection. No: Edema Neurological: Present: GCS=15, Speech Normal, Motor Func Grossly Intact Skin: Present: Warm, Dry, Normal Color. No: Rashes Psychiatric: Present: Alert, Oriented x 3, Normal Insight, Normal Concentration Medical Decision Making ED Course and Treatment: 06/23/17 21:03 Impression: 26 year old female presents complaining of chest pain for the past several days. Patient hx of Afib. Plan: -- EKG -- Labs -- Chest X-ray -- Urinalysis -- Reassess and disposition Prior Visits: Notes and results from previous visits were reviewed. Patient was last seen in the emergency department on 06/11/17 complaining of intermittent episodes of dizziness and midsternal chest pain that began yesterday. Progress Notes: EKG shows Sinus Bradycardic at 55 BPM with non-specific plate 3aVF and V3. QTC normal. P wave normal. Normal Intervals. Interpreted by me. Patient states she will check with certified nurse midwife for monitoring manager. Patient will be admitted for syncope and certified nurse midwife consult. - Lab Interpretations Microbiology Results: Microbiology Results 06/23/17 21:05 Urine,Clean Catch Urine Culture - Final Corynebacterium Species Lab Results: 06/23/17 21:11 06/23/17 21:11 Lab Results 06/23/17 21:11: Sodium 142, Potassium 4.0, Chloride 106, Carbon Dioxide 29, Anion Gap 11, BUN 11, Creatinine 0.9, Est GFR ( Amer) > 60, Est GFR (Non- Af Amer) > 60, Random Glucose 94, Calcium 9.7, Magnesium 2.0, Total Bilirubin 1.1, AST 42 H D, ALT 58 H, Alkaline Phosphatase 93, Lactate Dehydrogenase 484, Total Creatine Kinase 50, Troponin I < 0.01, NT-Pro-B Natriuret Pep 67.3, Total Protein 7.4, Albumin 4.2, Globulin 3.2, Albumin/Globulin Ratio 1.3 06/23/17 21:11: Urine Color Yellow, Urine Appearance Clear, Urine pH 7.0, Ur Specific [place] 1.020, Urine Protein Negative, Urine Glucose (UA) Negative, Urine Ketones Negative, Urine Blood Small H, Urine Nitrate Negative, Urine Bilirubin Negative, Urine Urobilinogen 0.2, Ur Leukocyte Esterase Trace H, Urine RBC 2 - 5, Urine WBC 0 - 2, Ur Epithelial Cells 6 - 8, Urine Bacteria Mod 06/23/17 21:11: APTT 31.5 06/23/17 21:11: WBC 6.7, RBC 4.67, Hgb 13.0, Hct 40.1, MCV 85.9, MCH 27.8, MCHC 32.4, RDW 14.8 H, Plt Count 193, MPV 10.9, Gran % 52.8, Lymph % (Auto) 37.7 H, [place] % (Auto) 6.5 H, Eos % (Auto) 2.4, Baso % (Auto) 0.6, Gran # 3.55, Lymph # 2.5, [place] # 0.4, Eos # 0.2, Baso # 0.04 I have reviewed the lab results: Yes - RAD Interpretation Radiology Orders: 06/23/17 20:42 CHEST PORTABLE [RAD] Stat - EKG Interpretation Interpreted by ED Physician: Yes Type: 12 lead EKG - Medication Orders Current Medication Orders: Discontinued Medications Al Hydrox/Mg Hydrox/Simethicone (Maalox Plus 30 Ml) 30 ml PO STAT STA Stop: 06/23/17 22:04 Last Admin: 06/23/17 22:22 Dose: 30 ml Aspirin (Aspirin Chewable) 324 mg PO STAT STA Stop: 06/23/17 22:03 Last Admin: 06/23/17 22:22 Dose: 324 mg Aspirin (Ecotrin) 81 mg PO DAILY [facility] Last Admin: 06/24/17 10:46 Dose: 81 mg Sodium Chloride (Sodium Chloride 0.9%) 1,000 mls @ 999 mls/hr IV .Q1H1M STA Stop: 06/23/17 22:59 Last Admin: 06/23/17 22:05 Dose: 999 mls/hr eMAR Start Stop Document 06/23/17 22:05 YP (Rec: 06/23/17 22:05 YP [id number]) Intravenous Solution Start Date 06/23/17 Start Time 22:05 End Date 06/23/17 End time 23:05 Total Infusion Time 60 Ibuprofen (Motrin Tab) 400 mg PO Q6H PRN PRN Reason: Pain, moderate (4-7) Last Admin: 06/24/17 09:46 Dose: 400 mg [facility] Pain/Vitals Document 06/24/17 09:46 SG (Rec: 06/24/17 09:46 SG [id number]) Pain Reassessment Is This A Pain ReAssessment? No Sleep Is patient sleeping during reassessment? No Presence of Pain Presence of Pain Yes Location Pain Location Body Site Chest Re-Assess: [facility] Pain/Vitals Document 06/24/17 10:46 SG (Rec: 06/24/17 13:05 SG [id number]) Pain Reassessment Is This A Pain ReAssessment? Yes Sleep Is patient sleeping during reassessment? No Presence of Pain Presence of Pain Yes Levothyroxine Sodium (Synthroid) 50 mcg PO ACB [facility] Last Admin: 06/24/17 07:56 Dose: 50 mcg Pantoprazole Sodium (Protonix Ec Tab) 40 mg PO 0600 [facility] Last Admin: 06/24/17 05:52 Dose: 40 mg - Scribe Statement The provider has reviewed the documentation as recorded by the Jose Guadalupe Rodriguez Provider Jose Guadalupe Attestation: All medical record entries made by the Jose Guadalupe were at my direction and personally dictated by me. I have reviewed the chart and agree that the record accurately reflects my personal performance of the history, physical exam, medical decision making, and the department course for this patient. I have also personally directed, reviewed, and agree with the discharge instructions and disposition. Disposition/Present on Arrival - Present on Arrival Any Indicators Present on Arrival: No History of DVT/PE: No History of Uncontrolled Diabetes: No Urinary Catheter: No History of Decub. Ulcer: No History Surgical Site Infection Following: None - Disposition Have Diagnosis and Disposition been Completed?: Yes Diagnosis: Syncopal episodes, Paroxysmal atrial fibrillation Disposition: HOSPITALIZED Disposition Time: 00:00 Patient Plan: Observation, Telemetry Condition: GOOD
[2017-06-23 21:31] LABS: ALB/GLOB RATIO 1.3 (1.1-1.8); ALKALINE PHOSPHATASE 93 U/L (38-126); ALT/SGPT 58 U/L (7-56); AST/SGOT 42 U/L (14-36); BILIRUBIN,TOTAL 1.1 mg/dL (0.2-1.3); BLOOD UREA NITROGEN 11 mg/dL (7-21); CALCIUM 9.7 mg/dL (8.4-10.5); CARBON DIOXIDE 29 mmol/L (21-33); CHLORIDE 106 mmol/L (98-107); GFR AFRICAN-AMERICAN > 60; GLUCOSE,RANDOM 94 mg/dL (70-110); SODIUM 142 mmol/L (132-148); TOTAL PROTEIN 7.4 g/dL (5.8-8.3)
[2017-06-23 21:40] LABS: BASO # 0.04 K/mm3 (0.0-2.0); BASO % 0.6 % (0.0-3.0); EOS # 0.2 (0.0-0.7); EOS % 2.4 % (1.5-5.0); GRAN # 3.55 (1.4-6.5); GRAN % 52.8 % (50.0-68.0); HEMATOCRIT 40.1 % (36.0-48.0); LYMPH # 2.5 (1.2-3.4); LYMPH % 37.7 % (22.0-35.0); MEAN CELL VOLUME 85.9 fl (80.0-105.0); MEAN CORPUSCULAR HEMOGLOBIN 27.8 pg (25.0-35.0); MEAN CORPUSCULAR HGB CONC 32.4 g/dl (31.0-37.0); MEAN PLATELET VOLUME 10.9 fl (7.0-11.0); MONO # 0.4 (0.1-0.6); MONO % 6.5 % (1.0-6.0); RED CELL DISTRIBUTION WIDTH 14.8 % (11.5-14.5); WHITE BLOOD COUNT 6.7 10^3/ul (4.5-11.0)
[2017-06-23 21:42] LABS: URINE BILIRUBIN NEGATIVE (NEGATIVE); URINE BLOOD SMALL (NEGATIVE); URINE GLUCOSE (UA) NEGATIVE (NEGATIVE); URINE KETONE NEGATIVE (NEGATIVE); URINE LEUKOCYTE ESTERASE TRACE Leu/uL (NEGATIVE); URINE PROTEIN NEGATIVE mg/dL (<30 mg/dL); URINE UROBILINOGEN 0.2 E.U./dL (<1 E.U./dL)
[2017-06-23 21:43] LABS: URINE APPEARANCE CLEAR (CLEAR); URINE COLOR YELLOW (YELLOW)
[2017-06-23 21:49] VITALS: O2SAT 97
[2017-06-23 21:57] LABS: TROPONIN I < 0.01 ng/mL
[2017-06-23] MEDS ORDERED: Sodium Chloride 0.9% 1,000 ML IV STA (21:59)
[2017-06-23] MEDS ORDERED: Alum-Mag Hydrox-Simethicone Susp (30 mL) PO STA (22:03)
[2017-06-23 22:04] LABS: URINE BACTERIA MOD (NEG); URINE WBC 0 - 2 /hpf (0-6)
--- NOTE | 2017-06-23 22:45 | CP.PCM.HP ---
<Torres Figueroa - Last Filed: 06/24/17 00:19> History of Present Illness - History of Present Illness History of Present Illness: 26 year old female with past medical history of hypothyroidism, low blood pressure, afib (diagnosed last year) presents to the ED because of episodes of chest pain and syncope. Patient states that yesterday during the day she started to have chest pain, she described the pain as sharp and slabbing and states it radiated to her left arm. Patient stated the pain was a 7/10. In addition she states last night at home she had a syncopal episode where she felt dizzy and passed out onto to the floor. Her sister witnessed the event. Patient denies hitting her head and believes she was on the ground for around 2 minutes. She states she has been having dizziness for a while now. Today patient states she continues to have chest pain and feels nauseas. Patient denies any shortness of breath, vomiting, fever, sore throat, trauma, chills, or any other complaints at this time. Bacteriologist Industrial: Dr. Grossman PMD: John Past Medical History: hypothyroidism, Low blood pressure, Afib(used to be on atenolol, stopped a couple months ago due to ) Past Surgical: Gallbladder removed in 2011 Allergies: Penicillin, Sulfa drugs Family: Breast CA, Heart disease Social: denies alcohol, tobacco, or illicit drug use Medications: Synthroid , Atenolol stopped using a couple months ago Present on Admission - Present on Admission Any Indicators Present on Admission: No Past Patient History - Infectious Disease Hx of Infectious Diseases: None - Past Social History Smoking Status: Never Smoked - CARDIAC Hx Cardiac Disorders: Yes (irregular hear rate) - PULMONARY Hx Respiratory Disorders: No - NEUROLOGICAL Hx Alzheimer's Disease: No - HEENT Hx HEENT Problems: No - RENAL Hx Chronic Kidney Disease: No - ENDOCRINE/METABOLIC Hx Endocrine Disorders: No - HEMATOLOGICAL/ONCOLOGICAL Hx Blood Disorders: No - INTEGUMENTARY Hx Dermatological Problems: No - MUSCULOSKELETAL/RHEUMATOLOGICAL Hx Musculoskeletal Disorders: No - GASTROINTESTINAL Hx Gastrointestinal Disorders: No - GENITOURINARY/GYNECOLOGICAL Hx Genitourinary Disorders: No - PSYCHIATRIC Hx Psychophysiologic Disorder: No Hx Substance Use: No - SURGICAL HISTORY Hx Cholecystectomy: Yes - ANESTHESIA Hx Anesthesia: No Hx Anesthesia Reactions: No Hx Malignant Hyperthermia: No Meds Allergies/Adverse Reactions: Allergies Allergy/AdvReac Type Severity Reaction Status Date / Time Penicillins Allergy RASH Verified 03/17/17 21:45 Sulfa (Sulfonamide Allergy RASH Verified 03/17/17 21:45 Antibiotics) Results - Vital Signs Recent Vital Signs: Last Vital Signs Temp 98.2 F 06/23/17 20:34 Pulse 55 L 06/23/17 21:45 Resp 16 06/23/17 21:45 BP 120/71 06/23/17 21:45 Pulse Ox 97 06/23/17 21:45 - Labs Result Diagrams: 06/23/17 21:11 06/23/17 21:11 Labs: Laboratory Results - last 24 hr 06/23/17 22:13 D-Dimer, Quantitative 125 Assessment & Plan - Assessment and Plan (Free Text) Assessment: 26 year old female with past medical history of hypothyroidism, low blood pressure, afib (diagnosed last year) presents to the ED because of episodes of chest pain and syncope. Plan: 1. Chest Pain-Rule out ACS -EKG ordered and obtained pending official read, sinus rhythm -CBC and CMP ordered and reviewed -initial troponin negative x1, will follow serial x2 -EKG in AM -Started on Aspirin 81mg -Heart Healthy Diet -Cardiology Consulted, Lola, will follow recs -TSH pending -Lipid Panel Pending -A1C pending 2. Syncopal Episode -CT head pending -Neuro consultedEvangelista, will follow recs -cardio, consulted -echo pending -Carotid US pending -orthostatics ordered 3. Afib-chronic -currently sinus rhythm -not currently taking any medications 4. Hypothyroidism -continue home synthroid -TSH pending GI/DVT Prophylaxis -Pantoprazole -Sequential compression device <Mario Esqueda - Last Filed: 06/24/17 06:26> Results - Vital Signs Recent Vital Signs: Last Vital Signs Temp 98.2 F 06/23/17 20:34 Pulse 60 06/24/17 02:00 Resp 18 06/24/17 00:08 BP 120/71 06/23/17 21:45 Pulse Ox 97 06/23/17 21:45 - Labs Result Diagrams: 06/23/17 21:11 06/23/17 21:11 Labs: Laboratory Results - last 24 hr 06/23/17 06/23/17 06/23/17 22:13 23:50 23:50 D-Dimer, Quantitative 125 Troponin I Triglycerides 251 H Cholesterol 234 H LDL Cholesterol Direct 155 H HDL Cholesterol 42 TSH 3rd Generation 4.31 06/24/17 06/24/17 01:40 02:45 D-Dimer, Quantitative Troponin I < 0.01 < 0.01 Triglycerides Cholesterol LDL Cholesterol Direct HDL Cholesterol TSH 3rd Generation Attending/Attestation - Attestation I have personally seen and examined this patient.: Yes I have fully participated in the care of the patient.: Yes I have reviewed all pertinent clinical information: Yes Notes (Text): 06/24/17 06:21 Patient was seen when she was in bed # 275-46. Agree with history , physical examination, assessment and plan. Following should be inserted. My impressions: Chest pain radiating to left arm. R/O acute coronary syndrome. Syncope. Atrial fibrillation. Hypothyroidism. Obesity. History angina. History UTI. History renal calculus. History GERD. History peptic ulcer disease. History anemia. History anxiety. History depression. History cholecystectomy. Allergy to PCN,Sulfa. Family history heart disease. Family history breast cancer. Family history DM. History of smoking.
[2017-06-24 00:12] LABS: CHOLESTEROL 234 mg/dL (130-200)
[2017-06-24] MEDS ORDERED: Pantoprazole 40 mg EC Tab PO SCH (06:00)
[2017-06-24] MEDS ORDERED: Levothyroxine 50 MCG TAB PO SCH (07:30)
[2017-06-24 08:35] LABS: BASO # 0.04 K/mm3 (0.0-2.0); BASO % 0.7 % (0.0-3.0); EOS # 0.2 (0.0-0.7); EOS % 2.6 % (1.5-5.0); GRAN # 3.55 (1.4-6.5); GRAN % 61.8 % (50.0-68.0); HEMATOCRIT 43.1 % (36.0-48.0); LYMPH # 1.8 (1.2-3.4); LYMPH % 30.6 % (22.0-35.0); MEAN CELL VOLUME 85.5 fl (80.0-105.0); MEAN CORPUSCULAR HEMOGLOBIN 27.2 pg (25.0-35.0); MEAN CORPUSCULAR HGB CONC 31.8 g/dl (31.0-37.0); MEAN PLATELET VOLUME 10.7 fl (7.0-11.0); MONO # 0.3 (0.1-0.6); MONO % 4.3 % (1.0-6.0); RED CELL DISTRIBUTION WIDTH 14.6 % (11.5-14.5); WHITE BLOOD COUNT 5.8 10^3/ul (4.5-11.0)
[2017-06-24 08:53] LABS: ALB/GLOB RATIO 1.3 (1.1-1.8); ALKALINE PHOSPHATASE 85 U/L (38-126); ALT/SGPT 61 U/L (7-56); AST/SGOT 37 U/L (14-36); BILIRUBIN,TOTAL 1.5 mg/dL (0.2-1.3); BLOOD UREA NITROGEN 9 mg/dL (7-21); CALCIUM 9.4 mg/dL (8.4-10.5); CARBON DIOXIDE 28 mmol/L (21-33); CHLORIDE 108 mmol/L (98-107); GFR AFRICAN-AMERICAN > 60; GLUCOSE,RANDOM 103 mg/dL (70-110); POTASSIUM 4.3 mmol/L (3.6-5.0); SODIUM 141 mmol/L (132-148); TOTAL PROTEIN 7.3 g/dL (5.8-8.3)
--- NOTE | 2017-06-24 09:31 | CT ---
PROCEDURE: CT HEAD WITHOUT CONTRAST. HISTORY: Syncope fall COMPARISON: None available. TECHNIQUE: Axial computed tomography images were obtained through the head/brain without intravenous contrast. Radiation dose: Total exam DLP = 823.45 mGy-cm. This CT exam was performed using one or more of the following dose reduction techniques: Automated exposure control, adjustment of the mA and/or kV according to patient size, and/or use of iterative reconstruction technique. FINDINGS: HEMORRHAGE: No intracranial hemorrhage. BRAIN: No mass effect or edema. No atrophy or chronic microvascular ischemic changes. VENTRICLES: Unremarkable. No hydrocephalus. CALVARIUM: Unremarkable. PARANASAL SINUSES: Mild chronic ethmoid sinusitis MASTOID AIR CELLS: Unremarkable as visualized. No inflammatory changes. OTHER FINDINGS: None. IMPRESSION: No intracranial mass, hemorrhage or evidence of acute infarct. Mild chronic ethmoid sinusitis. Otherwise unremarkable.
--- NOTE | 2017-06-24 11:42 | RAD ---
HISTORY: chest pain COMPARISON: 06/11/2017 FINDINGS: LUNGS: No active pulmonary disease. PLEURA: No significant pleural effusion identified, no pneumothorax apparent. CARDIOVASCULAR: Normal. OSSEOUS STRUCTURES: No significant abnormalities. VISUALIZED UPPER ABDOMEN: Normal. OTHER FINDINGS: None. IMPRESSION: No active disease.
[2017-06-24 11:49] VITALS: BP 101/65; RESP 20
[2017-06-24 14:08] VITALS: TEMP 98.7
[2017-06-24 15:03] VITALS: PULSE 68
--- NOTE | 2017-06-24 19:19 | CP.PCM.DIS ---
<Jerzy Mecrhant - Last Filed: 06/24/17 19:36> Provider - Provider Date of Admission: 06/23/17 22:06 Attending physician: Robin Sorenson MD Primary care physician: Dr. Arnulfo Perales Consults: Cardiolgoy: Dr. Davila Time Spent in preparation of Discharge (in minutes): 25 Hospital Course - Lab Results Lab Results: Most Recent Lab Values WBC 5.8 10^3/ul (4.5-11.0) 06/24/17 08:00 RBC 5.04 10^6/uL (3.5-6.1) 06/24/17 08:00 Hgb 13.7 g/dL (12.0-16.0) 06/24/17 08:00 Hct 43.1 % (36.0-48.0) 06/24/17 08:00 MCV 85.5 fl (80.0-105.0) 06/24/17 08:00 MCH 27.2 pg (25.0-35.0) 06/24/17 08:00 MCHC 31.8 g/dl (31.0-37.0) 06/24/17 08:00 RDW 14.6 % (11.5-14.5) H 06/24/17 08:00 Plt Count 172 10^3/uL (120.0-450.0) 06/24/17 08:00 MPV 10.7 fl (7.0-11.0) 06/24/17 08:00 Gran % 61.8 % (50.0-68.0) 06/24/17 08:00 Lymph % (Auto) 30.6 % (22.0-35.0) 06/24/17 08:00 [place] % (Auto) 4.3 % (1.0-6.0) 06/24/17 08:00 Eos % (Auto) 2.6 % (1.5-5.0) 06/24/17 08:00 Baso % (Auto) 0.7 % (0.0-3.0) 06/24/17 08:00 Gran # 3.55 (1.4-6.5) 06/24/17 08:00 Lymph # 1.8 (1.2-3.4) 06/24/17 08:00 [place] # 0.3 (0.1-0.6) 06/24/17 08:00 Eos # 0.2 (0.0-0.7) 06/24/17 08:00 Baso # 0.04 K/mm3 (0.0-2.0) 06/24/17 08:00 APTT 31.5 Seconds (25.1-36.5) 06/23/17 21:11 D-Dimer, Quantitative 125 ng/mL (0-243) 06/23/17 22:13 Sodium 141 mmol/L (132-148) 06/24/17 08:00 Potassium 4.3 mmol/L (3.6-5.0) 06/24/17 08:00 Chloride 108 mmol/L (98-107) H 06/24/17 08:00 Carbon Dioxide 28 mmol/L (21-33) 06/24/17 08:00 Anion Gap 10 (10-20) 06/24/17 08:00 BUN 9 mg/dL (7-21) 06/24/17 08:00 Creatinine 0.7 mg/dl (0.7-1.2) 06/24/17 08:00 Est GFR ( Amer) > 60 06/24/17 08:00 Est GFR (Non-Af Amer) > 60 06/24/17 08:00 Random Glucose 103 mg/dL (70-110) 06/24/17 08:00 Calcium 9.4 mg/dL (8.4-10.5) 06/24/17 08:00 Magnesium 2.0 mg/dL (1.7-2.2) 06/23/17 21:11 Total Bilirubin 1.5 mg/dL (0.2-1.3) H 06/24/17 08:00 AST 37 U/L (14-36) H 06/24/17 08:00 ALT 61 U/L (7-56) H 06/24/17 08:00 Alkaline Phosphatase 85 U/L (38-126) 06/24/17 08:00 Lactate Dehydrogenase 484 U/L (333-699) 06/23/17 21:11 Total Creatine Kinase 50 U/L (35-230) 06/23/17 21:11 Troponin I < 0.01 ng/mL 06/24/17 02:45 NT-Pro-B Natriuret Pep 67.3 pg/mL (0-450) 06/23/17 21:11 Total Protein 7.3 g/dL (5.8-8.3) 06/24/17 08:00 Albumin 4.1 g/dL (3.0-4.8) 06/24/17 08:00 Globulin 3.2 gm/dL 06/24/17 08:00 Albumin/Globulin Ratio 1.3 (1.1-1.8) 06/24/17 08:00 Triglycerides 251 mg/dL (35-160) H 06/23/17 23:50 Cholesterol 234 mg/dL (130-200) H 06/23/17 23:50 LDL Cholesterol Direct 155 mg/dL (0-129) H 06/23/17 23:50 HDL Cholesterol 42 mg/dL (29-60) 06/23/17 23:50 TSH 3rd Generation 4.31 mIU/mL (0.46-4.68) 06/23/17 23:50 Urine Color Yellow (YELLOW) 06/23/17 21:11 Urine Appearance Clear (CLEAR) 06/23/17 21:11 Urine pH 7.0 (4.7-8.0) 06/23/17 21:11 Ur Specific [place] 1.020 (1.005-1.035) 06/23/17 21:11 Urine Protein Negative mg/dL (<30 mg/dL) 06/23/17 21:11 Urine Glucose (UA) Negative mg/dL (NEGATIVE) 06/23/17 21:11 Urine Ketones Negative mg/dL (NEGATIVE) 06/23/17 21:11 Urine Blood Small (NEGATIVE) H 06/23/17 21:11 Urine Nitrate Negative (NEGATIVE) 06/23/17 21:11 Urine Bilirubin Negative (NEGATIVE) 06/23/17 21:11 Urine Urobilinogen 0.2 E.U./dL (<1 E.U./dL) 06/23/17 21:11 Ur Leukocyte Esterase Trace [place]/uL (NEGATIVE) H 06/23/17 21:11 Urine RBC 2 - 5 /hpf (0-2) 06/23/17 21:11 Urine WBC 0 - 2 /hpf (0-6) 06/23/17 21:11 Ur Epithelial Cells 6 - 8 /hpf (0-5) 06/23/17 21:11 Urine Bacteria Mod (NEG) 06/23/17 21:11 - Hospital Course Hospital Course: Patient is a 26 year old female with past medical history of hypothyroidism, low blood pressure, atrial fibrillation not on anticoagulation who presented to the ED with episodes of chest pain and one episode of syncope. Patient reported priro to admission she began having sharp, stabbing intermittent chest pain with radiation to her left arm. Patient reported her episode of syncope occured after standing for a long period of time in her kitchen. Patient had denied any head trauma, post ictal state, loss of bowel, or seizure activity per sister witnessed account. Patient was evaluated in the ED and admitted to the hospital for observation. CT head was conducted showing no acute intracranial process or fracture. An EKG was preformed showing no ST segment elevations/depressions or T wave inversions. An echocardiogram was preformed showing EF of >55% with no wall motion abnormalities. Carotid ultrasound was preformed and found to be benign. Cardiology was consulted with recommendations that patient was stable for discharge and would require a follow up outpatient for stress test. Orthostatic vital signs were preformed and found to be negative. Patient was evaluated and deemed appropriate for discharge with outpatient follow up with her primary medical doctor and cardiology for outpatient stress test. Patient was educated on syncope and given discharge instructions for which she was in understanding and agreeable. - Date & Time of H&P Date of H&P: 06/23/17 Time of H&P: 22:44 Discharge Exam - Head Exam Head Exam: ATRAUMATIC, NORMAL INSPECTION, NORMOCEPHALIC - Eye Exam Eye Exam: EOMI, Normal appearance, PERRL Pupil Exam: PERRL - ENT Exam ENT Exam: Mucous Membranes Moist - Neck Exam Neck exam: Full Rom - Respiratory Exam Respiratory Exam: Clear to PA & Lateral, NORMAL BREATHING PATTERN, UNREMARKABLE - Cardiovascular Exam Cardiovascular Exam: REGULAR RHYTHM, +S1, +S2 - GI/Abdominal Exam GI & Abdominal Exam: Normal Bowel Sounds, Soft, Unremarkable. absent: Tenderness - Back Exam Back exam: NORMAL INSPECTION - Neurological Exam Neurological exam: Alert, CN II-XII Intact, Normal Gait, Oriented x3 - Psychiatric Exam Psychiatric exam: Normal Affect, Normal Mood - Skin Skin Exam: Dry, Intact, Warm Discharge Plan - Follow Up Plan Condition: GOOD Disposition: HOME/ ROUTINE Instructions: Heart Healthy Diet (DC), Syncope (DC) Additional Instructions: 1. Follow up with primary medical doctor with in one week of discharge 2. Follow up outpatient with tassel snipper for out patient stress test 3. Take medications as prescribed to you 4. Return to hospital if your symptoms worsen or return 5. Maintain adequate hydration and diet Referrals: [facility] [Non-Staff] - Arnulfo Duncan MD [Family Provider] - <Robin Sorenson - Last Filed: 06/25/17 12:24> Provider - Provider Date of Admission: 06/23/17 22:06 Attending physician: Robin Sorenson MD Hospital Course - Lab Results Lab Results: Most Recent Lab Values WBC 5.8 10^3/ul (4.5-11.0) 06/24/17 08:00 RBC 5.04 10^6/uL (3.5-6.1) 06/24/17 08:00 Hgb 13.7 g/dL (12.0-16.0) 06/24/17 08:00 Hct 43.1 % (36.0-48.0) 06/24/17 08:00 MCV 85.5 fl (80.0-105.0) 06/24/17 08:00 MCH 27.2 pg (25.0-35.0) 06/24/17 08:00 MCHC 31.8 g/dl (31.0-37.0) 06/24/17 08:00 RDW 14.6 % (11.5-14.5) H 06/24/17 08:00 Plt Count 172 10^3/uL (120.0-450.0) 06/24/17 08:00 MPV 10.7 fl (7.0-11.0) 06/24/17 08:00 Gran % 61.8 % (50.0-68.0) 06/24/17 08:00 Lymph % (Auto) 30.6 % (22.0-35.0) 06/24/17 08:00 [place] % (Auto) 4.3 % (1.0-6.0) 06/24/17 08:00 Eos % (Auto) 2.6 % (1.5-5.0) 06/24/17 08:00 Baso % (Auto) 0.7 % (0.0-3.0) 06/24/17 08:00 Gran # 3.55 (1.4-6.5) 06/24/17 08:00 Lymph # 1.8 (1.2-3.4) 06/24/17 08:00 [place] # 0.3 (0.1-0.6) 06/24/17 08:00 Eos # 0.2 (0.0-0.7) 06/24/17 08:00 Baso # 0.04 K/mm3 (0.0-2.0) 06/24/17 08:00 APTT 31.5 Seconds (25.1-36.5) 06/23/17 21:11 D-Dimer, Quantitative 125 ng/mL (0-243) 06/23/17 22:13 Sodium 141 mmol/L (132-148) 06/24/17 08:00 Potassium 4.3 mmol/L (3.6-5.0) 06/24/17 08:00 Chloride 108 mmol/L (98-107) H 06/24/17 08:00 Carbon Dioxide 28 mmol/L (21-33) 06/24/17 08:00 Anion Gap 10 (10-20) 06/24/17 08:00 BUN 9 mg/dL (7-21) 06/24/17 08:00 Creatinine 0.7 mg/dl (0.7-1.2) 06/24/17 08:00 Est GFR ( Amer) > 60 06/24/17 08:00 Est GFR (Non-Af Amer) > 60 06/24/17 08:00 Random Glucose 103 mg/dL (70-110) 06/24/17 08:00 Hemoglobin A1c 5.8 % (4.2-6.5) 06/24/17 00:00 Calcium 9.4 mg/dL (8.4-10.5) 06/24/17 08:00 Magnesium 2.0 mg/dL (1.7-2.2) 06/23/17 21:11 Total Bilirubin 1.5 mg/dL (0.2-1.3) H 06/24/17 08:00 AST 37 U/L (14-36) H 06/24/17 08:00 ALT 61 U/L (7-56) H 06/24/17 08:00 Alkaline Phosphatase 85 U/L (38-126) 06/24/17 08:00 Lactate Dehydrogenase 484 U/L (333-699) 06/23/17 21:11 Total Creatine Kinase 50 U/L (35-230) 06/23/17 21:11 Troponin I < 0.01 ng/mL 06/24/17 02:45 NT-Pro-B Natriuret Pep 67.3 pg/mL (0-450) 06/23/17 21:11 Total Protein 7.3 g/dL (5.8-8.3) 06/24/17 08:00 Albumin 4.1 g/dL (3.0-4.8) 06/24/17 08:00 Globulin 3.2 gm/dL 06/24/17 08:00 Albumin/Globulin Ratio 1.3 (1.1-1.8) 06/24/17 08:00 Triglycerides 251 mg/dL (35-160) H 06/23/17 23:50 Cholesterol 234 mg/dL (130-200) H 06/23/17 23:50 LDL Cholesterol Direct 155 mg/dL (0-129) H 06/23/17 23:50 HDL Cholesterol 42 mg/dL (29-60) 06/23/17 23:50 TSH 3rd Generation 4.31 mIU/mL (0.46-4.68) 06/23/17 23:50 Urine Color Yellow (YELLOW) 06/23/17 21:11 Urine Appearance Clear (CLEAR) 06/23/17 21:11 Urine pH 7.0 (4.7-8.0) 06/23/17 21:11 Ur Specific [place] 1.020 (1.005-1.035) 06/23/17 21:11 Urine Protein Negative mg/dL (<30 mg/dL) 06/23/17 21:11 Urine Glucose (UA) Negative mg/dL (NEGATIVE) 06/23/17 21:11 Urine Ketones Negative mg/dL (NEGATIVE) 06/23/17 21:11 Urine Blood Small (NEGATIVE) H 06/23/17 21:11 Urine Nitrate Negative (NEGATIVE) 06/23/17 21:11 Urine Bilirubin Negative (NEGATIVE) 06/23/17 21:11 Urine Urobilinogen 0.2 E.U./dL (<1 E.U./dL) 06/23/17 21:11 Ur Leukocyte Esterase Trace [place]/uL (NEGATIVE) H 06/23/17 21:11 Urine RBC 2 - 5 /hpf (0-2) 06/23/17 21:11 Urine WBC 0 - 2 /hpf (0-6) 06/23/17 21:11 Ur Epithelial Cells 6 - 8 /hpf (0-5) 06/23/17 21:11 Urine Bacteria Mod (NEG) 06/23/17 21:11 Attending/Attestation - Attestation I have personally seen and examined this patient.: Yes I have fully participated in the care of the patient.: Yes I have reviewed all pertinent clinical information, including history, physical exam and plan: Yes Notes (Text): 06/25/17 12:07 Patient was seen and examined with medical records secretary. Agreed with resident assessment and plan. 26 Yrs old female with PMH of AF one year back , now in NSR, not on any anticoagulation , as per patient AF was transient was admitted with atypical chest pain and H/O syncope 2 days back.EKG is negative for ischemic changes, serial troponins are normal.Patient was evaluated by cardiology, no further inpatient work up is recommended.Patient will follow up with her tassel snipper. Patient syncope 2 days back was due to orthostatic hypotension.Patient does not has any focal deficit.CT head is negative.She is scheduled to have holter monitor as out patient with her tassel snipper. Management plan was discussed in detail with patient Education was provided.
--- NOTE | 2017-06-24 19:24 | CARD ---
APPROVED REPORT EXAM: Two-dimensional and M-mode echocardiogram with Doppler and color Doppler. INDICATION 2D DIMENSIONS IVSd1.0 (0.7-1.1cm)LVDd5.0 (3.9-5.9cm) PWd1.0 (0.7-1.1cm)LVDs3.5 (2.5-4.0cm) FS (%) 30.1 %LVEF (%)57.3 (>50%) M-Mode DIMENSIONS Left Atrium (MM)3.60 (2.5-4.0cm)Aortic Root2.80 (2.2-3.7cm) Aortic Cusp Exc.1.90 (1.5-2.0cm) Aortic Valve AoV Peak Bhzffybo790.0cm/Toshia Peak GR.8mmHg Mitral Valve MV E Qhtzvuyc82.9cm/sMV A Hbhbnqee36.7cm/sE/A ratio1.3 TDI Lateral E' Peak V6.47cm/sMedial E' Peak V9.44cm/sE/Lateral E'12.5 E/Medial E'8.6 Tricuspid Valve TR Peak Egewzylz334vw/sRAP [id number] Peak Gr.29mmHg [id number] LEFT VENTRICLE The left ventricle is normal size. There is normal left ventricular wall thickness. The left ventricular function is normal. The left ventricular ejection fraction is within the normal range. There is normal LV segmental wall motion. The left ventricular diastolic function is normal. RIGHT VENTRICLE The right ventricle is normal size. There is normal right ventricular wall thickness. The right ventricular systolic function is normal. ATRIA The left atrium size is normal. The right atrium size is normal. AORTIC VALVE The aortic valve is normal in structure. No aortic regurgitation is present. There is no aortic valvular stenosis. MITRAL VALVE The mitral valve is normal in structure. There is no mitral valve regurgitation noted. TRICUSPID VALVE The tricuspid valve is normal in structure. There is trace tricuspid regurgitation. There is mild pulmonary hypertension. GREAT VESSELS The aortic root is normal in size. The IVC is normal in size and collapses >50% with inspiration. <Conclusion> The left ventricle is normal size. There is normal left ventricular wall thickness. The left ventricular function is normal. The left ventricular ejection fraction is within the normal range. There is normal LV segmental wall motion. The left ventricular diastolic function is normal. There is mild pulmonary hypertension.
--- NOTE | 2017-06-24 23:15 | CARD ---
APPROVED REPORT EKG Measurement Heart [id number] <Conclusion> Normal sinus rhythm Left axis deviation Cannot rule out Anterior infarct, age undetermined Abnormal ECG
--- NOTE | 2017-06-24 23:20 | CARD ---
APPROVED REPORT EKG Measurement Heart [id number] <Conclusion> Sinus bradycardia Left axis deviation Possible Anterior infarct, age undetermined Abnormal ECG
--- NOTE | 2017-06-24 23:37 | CON ---
DATE: 06/24/2017 LOCATION: The patient is in room 378, bed 1. This consult is being done on behalf of Dr. Davila, whom I am covering. REASON FOR CONSULTATION: Chest pain. HISTORY OF PRESENT ILLNESS: A 26-year-old female who is known to have hypothyroidism and she says once she was told that she had paroxysmal atrial fibrillation, she was put on beta-jazmin later on. She stopped beta-jazmin when she got , now she had the of the baby about 6 weeks ago. The patient admitted with chest pain, which is associated with tenderness in the mid chest, and this pain is sharp episodes, sometimes pain is like stabbing. The patient had no relation of exertional chest pain or anginal symptoms. The patient stated that off and on she feel dizzy and sometimes she falls down, sometimes she has syncope. She is being followed by paper feeder as an outpatient and they are planning to put 30-day Holter monitor on the patient. She is being scheduled for that. PAST MEDICAL HISTORY: Positive for hypothyroidism and she was told to have low blood pressure. She was also told that she had paroxysmal atrial fibrillation. She had D and C and cholecystectomy in the past. PERSONAL HISTORY: Denies smoking. Denies drinking. ALLERGIES: THE PATIENT STATED THAT SHE IS ALLERGIC TO PENICILLIN AND SULFA DRUGS. FAMILY HISTORY: Father had coronary artery disease in his 50s. REVIEW OF SYSTEMS: All the systems reviewed, positive mentioned in the history, otherwise negative. PHYSICAL EXAMINATION: VITAL SIGNS: Blood pressure 101/65, respirations 20, pulse 57, and temperature 98.6. HEENT: Head is normocephalic. Eyes; pupils are normal. Conjunctivae normal. Nose and throat normal. NECK: JVP low. Carotids are equal. THORAX: AP diameter normal. LUNGS: Clear. CARDIOVASCULAR: S1 and S2. ABDOMEN: Soft and nontender. No organomegaly. Bowel sounds normal. EXTREMITIES: No clubbing and no cyanosis. LABORATORY DATA: WBC 5.8, hemoglobin 13.7, hematocrit 43.1, and platelet 172. Sodium 141, potassium 4.3, BUN 9, creatinine 0.7, bilirubin 1.5, AST 37, ALT 61, total protein 7.3, and albumin 4.1. Troponin x3 negative. EKG showed regular sinus rhythm with left anterior hemiblock. Chest x-ray, no active disease. The patient's triglycerides 251 and cholesterol 234. TSH is normal. Troponin negative. DIAGNOSES: Chest pain, musculoskeletal; history of fall a few days back when she became unsteady and lost her balance, but she does have a history of syncope; hypothyroidism; high cholesterol, and high triglyceride. PLAN: We will treat the patient's chest pain symptomatically. The patient is already following with the paper feeder as an outpatient and she wants to follow up with them for further workup. She says her paper feeder has done echo in the past and she says that she also has planning to do stress test and the patient will prefer to follow with them. In the meantime, the patient is on aspirin 81 mg daily and levothyroxine 50 mcg p.o. daily. We will add naproxen and Protonix to therapy for musculoskeletal pain. Robin Casiano MD
--- NOTE | 2017-06-26 09:17 | US ---
PROCEDURE: Bilateral carotid artery duplex ultrasound HISTORY: Carotid stenosis syncope PHYSICIAN(S): Servando Robledo MD. TECHNIQUE: Duplex sonography and color-flow Doppler were used to evaluate the carotid bifurcations and limited segments of the vertebral arteries bilaterally. FINDINGS: The exam is limited by body habitus. There is mild intimal- medial thickening noted at the carotid bifurcations bilaterally. The peak systolic velocity in the proximal right internal carotid artery is 52 cm/sec. This corresponds to a 0-19 percent proximal right ICA stenosis. Normal systolic velocities are noted in the proximal right external carotid artery. There is antegrade flow in the right vertebral artery. The peak systolic velocity in the proximal left internal carotid artery is 54 cm/sec. This corresponds to a 0-19 percent proximal left ICA stenosis. Normal systolic velocities are noted in the proximal left external carotid artery. There is antegrade flow in the left vertebral artery. IMPRESSION: 1. Bilateral 0-19 percent proximal ICA stenoses. 2. Antegrade flow in both vertebral arteries.
== END 2017-06-24 16:16 | disposition home or self-care (01) ==
LOC: ED 20:11 → INTOOBSV 22:06 → ERH 22:06 → 3RSO 06-24 00:02
PROVIDERS: ADMIT Internal Medicine; ATTEND Internal Medicine
DX: R07.89 Other chest pain (principal); E03.9 Hypothyroidism, unspecified; I48.0 Paroxysmal atrial fibrillation; I95.9 Hypotension, unspecified; Z90.49 Acquired absence of other specified parts of digestive tract; W19.XXXA Unspecified fall, initial encounter; I10 Essential (primary) hypertension; D64.9 Anemia, unspecified; R55 Syncope and collapse; Z82.49 Family history of ischemic heart disease and other diseases of the circulatory system; Z80.3 Family history of malignant neoplasm of breast; E78.00 Pure hypercholesterolemia, unspecified; E78.1 Pure hyperglyceridemia; Z88.0 Allergy status to penicillin; Z88.2 Allergy status to sulfonamides; E66.9 Obesity, unspecified; Z87.440 Personal history of urinary (tract) infections; Z87.442 Personal history of urinary calculi; K21.9 Gastro-esophageal reflux disease without esophagitis; Z87.11 Personal history of peptic ulcer disease; F41.9 Anxiety disorder, unspecified; F32.89 Other specified depressive episodes; Z83.3 Family history of diabetes mellitus; Z87.891 Personal history of nicotine dependence; Z68.41 Body mass index [BMI] 40.0-44.9, adult
CPT/HCPCS: 36415; 70450; 71010; 80053; 80061; 81001; 82550; 83036; 83615; 83735; 83880; 84443; 84484; 85025; 85378; 85730; 87086; 93005; 93306; 93880; 96360; 99285; G0378; J7040

== ENCOUNTER 2017-09-26 22:12 | Emergency (ER) | payer MEDICAID ==
[2017-09-26 22:27] VITALS: TEMP 98.2; BMI 40.6
[2017-09-26] MEDS ORDERED: Morphine 4 mg/ml ISec IVP STA (22:51)
[2017-09-26] MEDS ORDERED: Sodium Chloride 0.9% 1,000 ML IV STA (22:51)
--- NOTE | 2017-09-26 22:56 | ED PDOC ---
Arrival/HPI - General Historian: Patient - History of Present Illness Time/Duration: Other (see hpi) Context: Home - General Chief Complaint: Abdominal Pain Time Seen by Provider: 09/26/17 22:39 - History of Present Illness Narrative History of Present Illness (Text): 09/26/17 22:53 This 26 yo female with a pmh hypothyroidism, presents to this ED c/o epigastric pain x 2 days. Patient also noted nausea, and diarrhea since this morning. Patient feels is constant and radiates to the back. Patient denies sob, cp, urinary symptoms, dizziness, carbajal, or abnormal gait. (Steve Cool) Past Medical History - Provider Review Nursing Documentation Reviewed: Yes - Infectious Disease Hx of Infectious Diseases: None - Cardiac Hx Cardiac Disorders: Yes (irregular heart rate) Hx Atrial Fibrillation: Yes - Pulmonary Hx Respiratory Disorders: No - Neurological Hx Neurological Disorder: No - HEENT Hx HEENT Disorder: No - Renal Hx Renal Disorder: No - Endocrine/Metabolic Hx Endocrine Disorders: Yes Hx Hypothyroidism: Yes - Hematological/Oncological Hx Blood Disorders: No - Integumentary Hx Dermatological Disorder: No - Musculoskeletal/Rheumatological Hx Musculoskeletal Disorders: No - Gastrointestinal Hx Gastrointestinal Disorders: No - Genitourinary/Gynecological Hx Genitourinary Disorders: No - Psychiatric Hx Psychophysiologic Disorder: No Hx Substance Use: No - Surgical History Hx Cholecystectomy: Yes (2011) - Anesthesia Hx Anesthesia: No Hx Anesthesia Reactions: No Hx Malignant Hyperthermia: No Family/Social History - Physician Review Nursing Documentation Reviewed: Yes Family/Social History: Other (noncontributory) Smoking Status: Never Smoked Hx Alcohol Use: Yes Frequency of alcohol use: Socially Hx Substance Use: No Allergies/Home Meds Allergies/Adverse Reactions: Allergies Penicillins Allergy (Verified 09/26/17 22:24) RASH Sulfa (Sulfonamide Antibiotics) Allergy (Verified 09/26/17 22:24) RASH Home Medications: Home Meds Medication Instructions Recorded Confirmed Levothyroxine [Synthroid] 50 mcg PO DAILY 03/17/17 09/26/17 Review of Systems - Review of Systems Constitutional: Normal. absent: Fatigue, Weight Change, Fevers Eyes: Normal ENT: Normal Respiratory: Normal Cardiovascular: Normal Gastrointestinal: Abdominal Pain, Diarrhea, Nausea, Vomiting, Other (denies rectal bleeding). absent: Constipation, Appetite Changes, Hematochezia, Hematemesis, Food Intolerance Genitourinary Female: Normal. absent: Dysuria, Frequency, Hematuria, Vaginal Bleeding, Vaginal Discharge Musculoskeletal: Other (see hpi) Skin: Normal. absent: Rash Neurological: Normal. absent: Headache, Dizziness, Focal Weakness, Gait Changes , Speech Changes Endocrine: Normal Hemo/Lymphatic: Normal Psychiatric: Normal Physical Exam Temperature: Afebrile Blood Pressure: Normal Pulse: Regular Respiratory Rate: Normal Appearance: Positive for: Well-Appearing, Non-Toxic, Comfortable Pain Distress: None Mental Status: Positive for: Alert and Oriented X 3 - Systems Exam Head: Present: Atraumatic, Normocephalic Pupils: Present: PERRL Extroacular Muscles: Present: EOMI Conjunctiva: Present: Normal Mouth: Present: Moist Mucous Membranes Neck: Present: Normal Range of Motion Respiratory/Chest: Present: Clear to Auscultation, Good Air Exchange. No: Respiratory Distress, Accessory Muscle Use Cardiovascular: Present: Regular Rate and Rhythm, Normal S1, S2. No: Murmurs Abdomen: Present: Tenderness (mild epigastric pain), Normal Bowel Sounds. No: Distention, Peritoneal Signs, Rebound, Guarding, McBurney's Point Tender, Rovsing's Sign Present, Hernias Back: Present: Normal Inspection. No: CVA Tenderness Upper Extremity: Present: Normal Inspection, Normal ROM. No: Cyanosis, Edema Lower Extremity: Present: Normal Inspection, Normal ROM. No: Edema Neurological: Present: GCS=15, CN II-XII Intact, Speech Normal, Motor Func Grossly Intact, Normal Sensory Function, Normal Cerebellar Funct, Gait Normal Skin: Present: Warm, Dry, Normal Color. No: Rashes Psychiatric: Present: Alert, Oriented x 3, Normal Insight, Normal Concentration Vital Signs Temp Pulse Resp BP Pulse Ox 09/27/17 02:11 65 14 93/66 L 95 09/26/17 22:22 98.2 F 71 17 112/78 97 Medical Decision Making Re-evaluation Time: 02:11 Reassessment Condition: Re-examined, Improved - Lab Interpretations I have reviewed the lab results: Yes Interpretation: No clinic. lab abnormalty ED Course and Treatment: 09/27/17 02:11 Re-evaluation. Patient feels better. Discussed results and plan with patient who expresses understanding. All questions answered and there is agreement with the plan to discharge home with instructions. Patient stable for discharge. Return if symptoms persist or worsen. (Steve Cool) - Lab Interpretations Lab Results: 09/26/17 23:00 09/26/17 23:00 Lab Results 09/26/17 23:00: Sodium 142, Potassium 3.8, Chloride 107, Carbon Dioxide 25, Anion Gap 14, BUN 12, Creatinine 0.8, Est GFR ( Amer) > 60, Est GFR (Non- Af Amer) > 60, Random Glucose 97, Calcium 9.5, Total Bilirubin 0.8, AST 19, ALT 24, Alkaline Phosphatase 83, Total Protein 7.2, Albumin 4.1, Globulin 3.1, Albumin/Globulin Ratio 1.3, Lipase 132 09/26/17 23:00: Urine Color Yellow, Urine Appearance Clear, Urine pH 6.0, Ur Specific [place] >= 1.030, Urine Protein Trace H, Urine Glucose (UA) Negative, Urine Ketones Negative, Urine Blood Large H, Urine Nitrate Negative, Urine Bilirubin Negative, Urine Urobilinogen 1.0 H, Ur Leukocyte Esterase Trace H, Urine RBC 1 - 3, Urine WBC 2 - 5, Ur Epithelial Cells 6 - 8, Urine Bacteria Small, Urine HCG, Qual Negative 09/26/17 23:00: WBC 7.2 D, RBC 4.39, Hgb 12.8, Hct 38.9, MCV 88.6 D, MCH 29.2 , MCHC 32.9, RDW 13.1, Plt Count 226, MPV 10.3, Gran % 54.0, Lymph % (Auto) 37.7 H, Pepin % (Auto) 6.1 H, Eos % (Auto) 1.8, Baso % (Auto) 0.4, Gran # 3.91, Lymph # (Auto) 2.7, Pepin # (Auto) 0.4, Eos # (Auto) 0.1, Baso # (Auto) 0.03 - RAD Interpretation Narrative RAD Interpretations (Text): 09/27/17 02:11 FINDINGS: Lower thorax: Subpleural nodularity is visualized within the bilateral lung bases posteriorly, likely contributed by atelectatic change. ABDOMEN: Liver: There is a suggestion of a hypodense lesion within the inferior right hepatic lobe on series 3 image 84. This measures 1.3 x 1.0 cm. When correlated with the coronal sequence, this may be contributed by artifact. Gallbladder and bile ducts: Surgical clips are identified within the gallbladder fossa, compatible with cholecystectomy. Pancreas: Normal contour, without acute peripancreatic stranding. Spleen: A small splenule is visualized. No splenomegaly. Adrenals: No mass. Kidneys and ureters: No hydronephrosis. No solid mass. Stomach and bowel: There is wall thickening of duodenal and jejunal loops, consistent with enteritis. The stomach is filled with heterogeneous density material/food particles. Appendix: A gas-filled appendix is visualized, without a surrounding acute inflammatory changes. PELVIS: Bladder: No mass. Reproductive: The uterus is prominent in size. ABDOMEN and PELVIS: Intraperitoneal space: No free air. Bones/joints: No acute fracture. Soft tissues: There is minimal herniation of fat into the umbilicus. Vasculature: No abdominal aortic aneurysm. Lymph nodes: No enlarged lymph nodes. IMPRESSION: 1. There is wall thickening of duodenal and jejunal loops, consistent with enteritis. 2. There is a suggestion of a hypodense lesion within the inferior right hepatic lobe on series 3 image 84. This measures 1.3 x 1.0 cm. A nonemergent MRI of the abdomen with/without contrast is recommended. 3. Additional CT findings described above. (Steve Cool) Radiology Orders: 09/26/17 22:51 CHEST PORTABLE [RAD] Stat 09/26/17 22:52 ABD & PELVIS IV CONTRAST ONLY [CT] Stat - Medication Orders Current Medication Orders: Discontinued Medications Belladonna/Phenobarbital ( Elixir) 5 ml PO STAT STA Stop: 09/27/17 02:11 Last Admin: 09/27/17 02:36 Dose: 5 ml Famotidine (Pepcid) 20 mg IVP STAT STA Stop: 09/26/17 22:52 Last Admin: 09/26/17 23:18 Dose: 20 mg IVP Administration Document 09/26/17 23:18 MINERVA (Rec: 09/26/17 23:18 MINERVA [id number]) Charges for Administration # of IVP Administrations 1 Sodium Chloride (Sodium Chloride 0.9%) 1,000 mls @ 1,000 mls/hr IV .Q1H STA Stop: 09/26/17 23:50 Last Admin: 09/26/17 23:16 Dose: 1,000 mls/hr eMAR Start Stop Document 09/26/17 23:16 (Rec: 09/26/17 23:19 [id number]) Intravenous Solution Start Date 09/26/17 Start Time 23:16 Morphine Sulfate (Morphine) 4 mg IVP STAT STA Stop: 09/26/17 22:52 Last Admin: 09/26/17 23:17 Dose: 4 mg MAR Pain Assessment Document 09/26/17 23:17 (Rec: 09/26/17 23:18 [id number]) Pain Reassessment Is this a pain reassessment? Yes Sleep Is patient sleeping during reassessment? No Presence of Pain Presence of Pain Yes Pain Scale Used Pain Scale Used Numeric Location Left, Right or Bilateral Bilateral Pain Location Body Site Abdomen Description Description Constant Intensity of Pain at present 7 Alleviating Factors/Management Position Change Techniques Alleviating Factors Medication IVP Administration Document 09/26/17 23:17 (Rec: 09/26/17 23:18 [id number]) Charges for Administration # of IVP Administrations 1 Re-Assess: KAMAR Pain Assessment Document 09/27/17 00:17 (Rec: 09/27/17 02:25 [id number]) Pain Reassessment Is this a pain reassessment? Yes Sleep Is patient sleeping during reassessment? No Presence of Pain Presence of Pain Yes Pain Scale Used Pain Scale Used Numeric Location Pain Location Body Site Abdomen Description Effects of Pain pt states chest pain has been alleviated. Nitrofurantoin Macrocrystals (Macrobid) 100 mg PO STAT STA Stop: 09/27/17 02:11 Last Admin: 09/27/17 02:37 Dose: 100 mg Ondansetron HCl (Zofran Inj) 4 mg IVP STAT STA Stop: 09/26/17 22:52 Last Admin: 09/26/17 23:18 Dose: 4 mg IVP Administration Document 09/26/17 23:18 (Rec: 09/26/17 23:18 [id number]) Charges for Administration # of IVP Administrations 1 Disposition/Present on Arrival - Present on Arrival Any Indicators Present on Arrival: No History of DVT/PE: No History of Uncontrolled Diabetes: No Urinary Catheter: No History of Decub. Ulcer: No History Surgical Site Infection Following: None - Disposition Have Diagnosis and Disposition been Completed?: Yes Disposition Time: 02:12 Patient Plan: Discharge - Disposition Diagnosis: Abdominal pain, Enteritis, UTI (urinary tract infection) Disposition: HOME/ ROUTINE Condition: GOOD Discharge Instructions (ExitCare): Viral Gastroenteritis, Urinary Tract Infection, Adult (DC) Additional Instructions: Call private doctor for follow up visit in 1-2 days. Take medication as instructed. return to emergency if symptoms worsen. Prescriptions: Acetaminophen with Codeine [Tylenol with Codeine #3 Tablet] 1 each PO Q6H PRN # 10 tablet PRN Reason: Pain, Severe (8-10) Famotidine [Pepcid] 40 mg PO DAILY #10 tablet Nitrofurantoin Macrocrystals [Macrobid] 100 mg PO BID #10 cap Phenobarb/Hyoscy/Atropine/Scop [ Tablet] 16.2 mg PO Q6 PRN #20 tablet PRN Reason: Gi Distress Referrals: Arnulfo Duncan MD [Primary Care Provider] - Follow up with primary Forms: [facility] ([place]ian), SCHOOL NOTE
[2017-09-26 23:24] LABS: BASO # 0.03 K/mm3 (0.0-2.0); BASO % 0.4 % (0.0-3.0); EOS # 0.1 (0.0-0.7); EOS % 1.8 % (1.5-5.0); GRAN # 3.91 (1.4-6.5); HEMOGLOBIN 12.8 g/dL (12.0-16.0); LYMPH # 2.7 (1.2-3.4); LYMPH % 37.7 % (22.0-35.0); MEAN CORPUSCULAR HEMOGLOBIN 29.2 pg (25.0-35.0); MEAN CORPUSCULAR HGB CONC 32.9 g/dl (31.0-37.0); MEAN PLATELET VOLUME 10.3 fl (7.0-11.0); MONO # 0.4 (0.1-0.6); MONO % 6.1 % (1.0-6.0); RBC 4.39 10^6/uL (3.5-6.1); RED CELL DISTRIBUTION WIDTH 13.1 % (11.5-14.5); URINE BILIRUBIN NEGATIVE (NEGATIVE); URINE BLOOD LARGE (NEGATIVE); URINE GLUCOSE (UA) NEGATIVE (NEGATIVE); URINE LEUKOCYTE ESTERASE TRACE Leu/uL (NEGATIVE); URINE NITRATE NEGATIVE (NEGATIVE); URINE PROTEIN TRACE mg/dL (<30 mg/dL); WHITE BLOOD COUNT 7.2 10^3/ul (4.5-11.0)
[2017-09-26 23:27] LABS: ALB/GLOB RATIO 1.3 (1.1-1.8); ALBUMIN 4.1 g/dL (3.0-4.8); ALT/SGPT 24 U/L (7-56); AST/SGOT 19 U/L (14-36); BLOOD UREA NITROGEN 12 mg/dL (7-21); CALCIUM 9.5 mg/dL (8.4-10.5); GFR AFRICAN-AMERICAN > 60; GFR NON-AFRICAN AMERICAN > 60; LIPASE 132 U/L (23-300)
[2017-09-26 23:28] LABS: MEAN CELL VOLUME 88.6 fl (80.0-105.0); URINE APPEARANCE CLEAR (CLEAR); URINE COLOR YELLOW (YELLOW)
[2017-09-26 23:29] LABS: HCG,QUALITATIVE URINE NEGATIVE (NEGATIVE)
[2017-09-26 23:42] LABS: URINE BACTERIA SMALL (NEG)
[2017-09-27] MEDS ORDERED: Iohexol 350 MG/100 ML VIAL ONE (00:02)
--- NOTE | 2017-09-27 01:33 | CT ---
EXAM: CT Abdomen and Pelvis With Intravenous Contrast EXAM DATE/TIME: 09/26/2017 10:52 PM CLINICAL HISTORY: The patient age is 26 years old and is female; Pain; Abdominal pain; Epigastric; Additional info: Epigastric pain Facility exam id and description: Ct abdpelciv abd pelvis iv contrast only TECHNIQUE: Axial computed tomography images of the abdomen and pelvis with intravenous contrast. All CT scans at this facility use one or more dose reduction techniques, viz.: automated exposure control; ma/kV adjustment per patient size (including targeted exams where dose is matched to indication; i.e. head); or iterative reconstruction technique. Coronal and sagittal reformatted images were created and reviewed. CONTRAST: 96 mL of omni 350 administered intravenously. COMPARISON: No relevant prior studies available. FINDINGS: Lower thorax: Subpleural nodularity is visualized within the bilateral lung bases posteriorly, likely contributed by atelectatic change. ABDOMEN: Liver: There is a suggestion of a hypodense lesion within the inferior right hepatic lobe on series 3 image 84. This measures 1.3 x 1.0 cm. When correlated with the coronal sequence, this may be contributed by artifact. Gallbladder and bile ducts: Surgical clips are identified within the gallbladder fossa, compatible with cholecystectomy. Pancreas: Normal contour, without acute peripancreatic stranding. Spleen: A small splenule is visualized. No splenomegaly. Adrenals: No mass. Kidneys and ureters: No hydronephrosis. No solid mass. Stomach and bowel: There is wall thickening of duodenal and jejunal loops, consistent with enteritis. The stomach is filled with heterogeneous density material/food particles. Appendix: A gas-filled appendix is visualized, without a surrounding acute inflammatory changes. PELVIS: Bladder: No mass. Reproductive: The uterus is prominent in size. ABDOMEN and PELVIS: Intraperitoneal space: No free air. Bones/joints: No acute fracture. Soft tissues: There is minimal herniation of fat into the umbilicus. Vasculature: No abdominal aortic aneurysm. Lymph nodes: No enlarged lymph nodes. IMPRESSION: 1. There is wall thickening of duodenal and jejunal loops, consistent with enteritis. 2. There is a suggestion of a hypodense lesion within the inferior right hepatic lobe on series 3 image 84. This measures 1.3 x 1.0 cm. A nonemergent MRI of the abdomen with/without contrast is recommended. 3. Additional CT findings described above.
[2017-09-27] MEDS ORDERED: Atrop/Hyosc/Scopal/PB Elixir (120 ml) PO STA (02:10)
[2017-09-27 02:12] VITALS: BP 93/66; PULSE 65; RESP 14; O2SAT 95
--- NOTE | 2017-09-27 09:42 | RAD ---
HISTORY: epigastric pain COMPARISON: 06/23/2017 FINDINGS: LUNGS: No active pulmonary disease. PLEURA: No significant pleural effusion identified, no pneumothorax apparent. CARDIOVASCULAR: Normal. OSSEOUS STRUCTURES: No significant abnormalities. VISUALIZED UPPER ABDOMEN: Normal. OTHER FINDINGS: None. IMPRESSION: No active disease.
--- NOTE | 2017-09-27 22:06 | CARD ---
APPROVED REPORT EKG Measurement Heart [id number] <Conclusion> Normal sinus rhythm Left axis deviation Cannot rule out Anterior infarct, age undetermined Abnormal ECG
== END 2017-09-27 02:51 | disposition home or self-care (01) ==
LOC: ED 22:12
DX: K52.9 Noninfective gastroenteritis and colitis, unspecified (principal); N39.0 Urinary tract infection, site not specified; R10.9 Unspecified abdominal pain; I48.91 Unspecified atrial fibrillation; E03.9 Hypothyroidism, unspecified
CPT/HCPCS: 71045; 74177; 80053; 81001; 83690; 84703; 85025; 87086; 93005; 96374; 96375; 99285; J2270; J2405; J7040; Q9967

== ENCOUNTER 2017-10-12 14:22 | Emergency (ER) | payer MEDICAID ==
[2017-10-12 14:23] VITALS: BMI 39.6
--- NOTE | 2017-10-12 14:58 | ED PDOC ---
Arrival/HPI - General Time Seen by Provider: 10/12/17 14:55 Historian: Patient - History of Present Illness Narrative History of Present Illness (Text): 10/12/17 14:57 26 y/o female, pmh including paroxymal a.fibb/hypothyroidism, drug allergy to penicillin and sulfa, c/o Past Medical History - Infectious Disease Hx of Infectious Diseases: None - Cardiac Hx Cardiac Disorders: Yes (irregular heart rate) Hx Atrial Fibrillation: Yes - Pulmonary Hx Respiratory Disorders: No - Neurological Hx Neurological Disorder: No - HEENT Hx HEENT Disorder: No - Renal Hx Renal Disorder: No - Endocrine/Metabolic Hx Endocrine Disorders: Yes Hx Hypothyroidism: Yes - Hematological/Oncological Hx Blood Disorders: No - Integumentary Hx Dermatological Disorder: No - Musculoskeletal/Rheumatological Hx Musculoskeletal Disorders: No - Gastrointestinal Hx Gastrointestinal Disorders: No - Genitourinary/Gynecological Hx Genitourinary Disorders: No - Psychiatric Hx Psychophysiologic Disorder: No Hx Substance Use: No - Surgical History Hx Cholecystectomy: Yes (2011) - Anesthesia Hx Anesthesia: No Hx Anesthesia Reactions: No Hx Malignant Hyperthermia: No Family/Social History Smoking Status: Never Smoked Hx Alcohol Use: Yes Hx Substance Use: No Allergies/Home Meds Allergies/Adverse Reactions: Allergies Penicillins Allergy (Verified 09/26/17 22:24) RASH Sulfa (Sulfonamide Antibiotics) Allergy (Verified 09/26/17 22:24) RASH Home Medications: Home Meds Medication Instructions Recorded Confirmed Levothyroxine [Synthroid] 50 mcg PO DAILY 03/17/17 09/26/17 Disposition/Present on Arrival - Present on Arrival History of DVT/PE: No History of Uncontrolled Diabetes: No Urinary Catheter: No History Surgical Site Infection Following: None - Disposition
== END 2017-10-12 16:45 | disposition left against medical advice (07) ==
LOC: ED 14:22
DX: Z02.89 Encounter for other administrative examinations (principal); R50.9 Fever, unspecified

== ENCOUNTER 2017-11-18 13:21 | Emergency (ER) | payer MEDICAID ==
[2017-11-18 13:31] VITALS: BMI 41.1
--- NOTE | 2017-11-18 13:32 | ED PDOC ---
Arrival/HPI - General Historian: Patient <Onofre Fernandez - Last Filed: 11/18/17 17:49> <Saúl García - Last Filed: 11/19/17 17:29> - General Time Seen by Provider: 11/18/17 13:29 - History of Present Illness Narrative History of Present Illness (Text): 11/18/17 13:30 26 y/o female, pmh including paroxymal a.fibb/hypothroidism, penicillin and sulfa allergy, c/o chest pain x 2 days with no fall or trauma. Pt. stated that she has chronic history of chest pain for the past 1 year, been having chest pain on and off, last episode of the pain about 2 days ago, aggravated by the lt. shoulder movement, no numbness or tingling, no night sweat, no rash, no other medical or psychological complaints. Pt. has no history of leg or calf pain. (Onofre Fernandez) Past Medical History - Provider Review Nursing Documentation Reviewed: Yes - Infectious Disease Hx of Infectious Diseases: None - Cardiac Hx Cardiac Disorders: Yes (irregular heart rate) Hx Atrial Fibrillation: Yes - Pulmonary Hx Respiratory Disorders: No - Neurological Hx Neurological Disorder: No - HEENT Hx HEENT Disorder: No - Renal Hx Renal Disorder: No - Endocrine/Metabolic Hx Endocrine Disorders: Yes Hx Hypothyroidism: Yes - Hematological/Oncological Hx Blood Disorders: No - Integumentary Hx Dermatological Disorder: No - Musculoskeletal/Rheumatological Hx Musculoskeletal Disorders: No - Gastrointestinal Hx Gastrointestinal Disorders: No - Genitourinary/Gynecological Hx Genitourinary Disorders: No - Psychiatric Hx Psychophysiologic Disorder: No Hx Substance Use: No - Surgical History Hx Cholecystectomy: Yes (2011) - Anesthesia Hx Anesthesia: No Hx Anesthesia Reactions: No Hx Malignant Hyperthermia: No <Onofre Fernandez - Last Filed: 11/18/17 17:49> Family/Social History - Physician Review Nursing Documentation Reviewed: Yes Family/Social History: Unknown Family HX Smoking Status: Never Smoked Hx Alcohol Use: Yes Hx Substance Use: No <Onofre Fernandez - Last Filed: 11/18/17 17:49> Allergies/Home Meds <Onofre Fernandez - Last Filed: 11/18/17 17:49> <Saúl García - Last Filed: 11/19/17 17:29> Allergies/Adverse Reactions: Allergies Penicillins Allergy (Verified 11/18/17 13:40) RASH Sulfa (Sulfonamide Antibiotics) Allergy (Verified 11/18/17 13:40) RASH Home Medications: Home Meds Medication Instructions Recorded Confirmed Levothyroxine [Synthroid] 50 mcg PO DAILY 03/17/17 11/18/17 Review of Systems - Review of Systems Constitutional: absent: Fatigue, Fevers Eyes: absent: Vision Changes ENT: absent: Hearing Changes Respiratory: absent: SOB, Cough Cardiovascular: Chest Pain Gastrointestinal: absent: Abdominal Pain, Nausea, Vomiting Musculoskeletal: Arthralgias, Myalgias. absent: Back Pain, Neck Pain, Joint Swelling Skin: absent: Rash, Pruritis, Skin Lesions Neurological: absent: Headache, Dizziness <Onofre Fernandez Q - Last Filed: 11/18/17 17:49> Physical Exam Vital Signs Reviewed: Yes Temperature: Afebrile Blood Pressure: Normal Pulse: Regular Respiratory Rate: Normal Appearance: Positive for: Well-Appearing, Non-Toxic, Comfortable Pain Distress: Moderate Mental Status: Positive for: Alert and Oriented X 3 - Systems Exam Head: Present: Atraumatic, Normocephalic Pupils: Present: PERRL Extroacular Muscles: Present: EOMI Conjunctiva: Present: Normal Mouth: Present: Moist Mucous Membranes Neck: Present: Normal Range of Motion Respiratory/Chest: Present: Clear to Auscultation, Good Air Exchange, Tender to Palpation (pain is 100 percent reproducible by palpating on the lt. anterior pectoralis major muscle region). No: Respiratory Distress, Accessory Muscle Use Cardiovascular: Present: Regular Rate and Rhythm, Normal S1, S2. No: Murmurs Abdomen: No: Tenderness, Distention, Peritoneal Signs Back: Present: Normal Inspection Upper Extremity: Present: Normal Inspection, Normal ROM, NORMAL PULSES. No: Cyanosis, Edema, Deformity Lower Extremity: Present: Normal Inspection, Normal ROM, Capillary Refill < 2 s. No: Edema, Deformity Neurological: Present: GCS=15, CN II-XII Intact, Speech Normal Skin: Present: Warm, Dry, Normal Color. No: Rashes Psychiatric: Present: Alert, Oriented x 3, Normal Insight, Normal Concentration <Onofre Fernandez Q - Last Filed: 11/18/17 17:49> Vital Signs Temp Pulse Pulse Resp BP Pulse Ox 11/18/17 18:17 19 99 11/18/17 18:11 98.1 F 70 18 99 11/18/17 15:47 61 18 107/78 99 11/18/17 14:05 61 11/18/17 13:41 98.0 F 62 18 105/70 96 11/18/17 13:30 98.2 F 69 18 105/70 96 Medical Decision Making - Lab Interpretations I have reviewed the lab results: Yes - RAD Interpretation Purchase Request Editor: Radiologist - EKG Interpretation Interpreted by ED Physician: Yes Type: 12 lead EKG Comparison: Com.w/previous EKG <Onofre Fernandez - Last Filed: 11/18/17 17:49> <Saúl Garcaí - Last Filed: 11/19/17 17:29> ED Course and Treatment: 11/18/17 13:31 -labs/cardiac enzyme/thyroid panel -ekg -cxr -IVF/toradol -observe and reassess 11/18/17 15:42 -Pt. complaining about headache, CT head ordered with the IV reglan ordered. 11/18/17 17:49 -EKG: NSR @ 73 BPM, no acute ST elevation or depression, no acute T wave changes compared with previous ekg. -CT Head: Normal CT of the Head. No intracranial mass, hemorrhage or evidence of acute infarct. -Chest xray show no active disease -Labs show no acute findings -Thyroid panel: consistent with hypothyroidism and no previous thyroid panel available for comparison, advised the patient to have thyroid medication adjusted and she stated that she has been on the levothyroxine 25mcg po daily for the past 1 year. -Troponin is negative after 24 hours on the 1st set, 2nd set is negative -UA show no UTI -UDS show no acute findings -Pt. feels much better with no chest pain now. -I discussed the case with Dr. García, advised to give levothyroxine 50mcg po qd for 7 days supply and repeat, discharge home with no admission needed. -I offered levothyroxine 50mcg medication dose adjustment with the prescription but the patient declined as she will see her own pmd tomorrow for the levothyroxine medication adjustment. -Pt. agreed to take levothyroxine 50mcg in the ER -Discharge home with naproxen, bed rest, see your own pmd and or assistant/ cigarette seller within 24-48 hours for the chest pain and hypothyroidism medication adjustment as your TSH 65.20 is and T4 0.45, return to the ER for any new or worsening signs or symptoms. (Onofre Fernandez) - Lab Interpretations Lab Results: 11/18/17 13:50 11/18/17 13:50 Lab Results 11/18/17 17:05: Lactate Dehydrogenase 352, Total Creatine Kinase 115, Troponin I < 0.01 11/18/17 13:53: Urine Opiates Screen Negative, Urine Methadone Screen Negative, Ur Barbiturates Screen Negative, Ur Phencyclidine Scrn Negative, Ur Amphetamines Screen Negative, U Benzodiazepines Scrn Negative, U Oth Cocaine Metabols Negative, U Cannabinoids Screen Negative 11/18/17 13:53: Urine Color Yellow, Urine Appearance Clear, Urine pH 6.0, Ur Specific [place] >= 1.030, Urine Protein 30 H, Urine Glucose (UA) Negative, Urine Ketones 15 H, Urine Blood Negative, Urine Nitrate Negative, Urine Bilirubin Small H, Urine Urobilinogen 0.2, Ur Leukocyte Esterase Negative, Urine RBC Negative, Urine WBC 0 - 2, Ur Epithelial Cells 0 - 2, Urine Bacteria Neg 11/18/17 13:50: Free T4 0.45 L, TSH 3rd Generation 65.20 H 11/18/17 13:50: Sodium 144, Potassium 3.6, Chloride 106, Carbon Dioxide 26, Anion Gap 16, BUN 13, Creatinine 0.9, Est GFR ( Amer) > 60, Est GFR (Non- Af Amer) > 60, Random Glucose 83, Calcium 9.6, Magnesium 2.2, Total Bilirubin 2.8 H, AST 24, ALT 19, Alkaline Phosphatase 73, Lactate Dehydrogenase 444, Total Creatine Kinase 129, Troponin I < 0.01, Total Protein 7.9, Albumin 4.7, Globulin 3.2, Albumin/Globulin Ratio 1.5 11/18/17 13:50: WBC 5.9, RBC 4.45, Hgb 13.1, Hct 39.0, MCV 87.6, MCH 29.4, MCHC 33.6, RDW 13.0, Plt Count 223, MPV 10.1, Gran % 55.4, Lymph % (Auto) 36.5 H, [place] % (Auto) 6.1 H, Eos % (Auto) 1.2 L, Baso % (Auto) 0.8, Gran # 3.27, Lymph # (Auto) 2.2, [place] # (Auto) 0.4, Eos # (Auto) 0.1, Baso # (Auto) 0.05 - RAD Interpretation Radiology Orders: 11/18/17 13:45 CHEST PORTABLE [RAD] Stat 11/18/17 15:41 HEAD W/O CONTRAST [CT] Stat Chest xray: LUNGS: No active pulmonary disease. PLEURA: No significant pleural effusion identified, no pneumothorax apparent. CARDIOVASCULAR: Normal. OSSEOUS STRUCTURES: No significant abnormalities. VISUALIZED UPPER ABDOMEN: Normal. OTHER FINDINGS: None. IMPRESSION: No active disease. CT head: HEMORRHAGE: No intracranial hemorrhage. BRAIN: No mass effect or edema. No atrophy or chronic microvascular ischemic changes. VENTRICLES: Unremarkable. No hydrocephalus. CALVARIUM: Unremarkable. PARANASAL SINUSES: Unremarkable as visualized. No significant inflammatory changes. MASTOID AIR CELLS: Unremarkable as visualized. No inflammatory changes. OTHER FINDINGS: None. IMPRESSION: Normal CT of the Head. No intracranial mass, hemorrhage or evidence of acute infarct. (Onofre Fernandez) - EKG Interpretation EKG Interpretation (Text): 11/18/17 13:31 -EKG: NSR @ 73 BPM, no acute ST elevation or depression, no acute T wave changes compared with previous ekg. (Onofre Fernandez) - Medication Orders Current Medication Orders: Discontinued Medications Famotidine (Pepcid) 20 mg IVP STAT STA Stop: 11/18/17 13:41 Last Admin: 11/18/17 14:03 Dose: 20 mg IVP Administration Document 11/18/17 14:03 [email or web address] (Rec: 11/18/17 14:03 [email or web address] [id number]) Charges for Administration # of IVP Administrations 1 Sodium Chloride (Sodium Chloride 0.9%) 1,000 mls @ 999 mls/hr IV .Q1H1M STA Stop: 11/18/17 14:40 Last Admin: 11/18/17 14:02 Dose: 999 mls/hr eMAR Start Stop Document 11/18/17 14:02 [email or web address] (Rec: 11/18/17 14:[id number]- [id number]) Intravenous Solution Start Date 11/18/17 Start Time 14:03 End Date 11/18/17 Ketorolac Tromethamine (Toradol) 30 mg IVP STAT STA Stop: 11/18/17 13:41 Last Admin: 11/18/17 14:03 Dose: 30 mg MAR Pain Assessment Document 11/18/17 14:03 [email or web address] (Rec: 11/18/17 14:[id number]- [id number]) Pain Reassessment Is this a pain reassessment? No Sleep Is patient sleeping during reassessment? No Presence of Pain Presence of Pain Yes Pain Scale Used Pain Scale Used Numeric Location Pain Location Body Site Chest Description Description Constant Intensity of Pain at present 8 Pain Behavior Facial Grimacing Aggravating Factors Changing Position Alleviating Factors/Management Medication Techniques Alleviating Factors Medication IVP Administration Document 11/18/17 14:03 [email or web address] (Rec: 11/18/17 14:[id number]- [id number]) Charges for Administration # of IVP Administrations 1 Levothyroxine Sodium (Synthroid) 50 mcg PO STAT STA Stop: 11/18/17 15:42 Last Admin: 11/18/17 16:59 Dose: 50 mcg Metoclopramide HCl (Reglan) 10 mg IVP STAT STA Stop: 11/18/17 15:51 Last Admin: 11/18/17 16:59 Dose: 10 mg IVP Administration Document 11/18/17 16:59 EWO (Rec: 11/18/17 16:59 [facility] [id number]) Charges for Administration # of IVP Administrations 1 - PA / [employer] / Resident Statement MD/DO has reviewed & agrees with the documentation as recorded. <Onofre Fernandez - Last Filed: 11/18/17 17:49> - PA / WASTE PICKER / Resident Statement / has reviewed & agrees with the documentation as recorded. <Saúl García - Last Filed: 11/19/17 17:29> Disposition/Present on Arrival - Present on Arrival Any Indicators Present on Arrival: No History of DVT/PE: No History of Uncontrolled Diabetes: No Urinary Catheter: No History of Decub. Ulcer: No History Surgical Site Infection Following: None - Disposition Have Diagnosis and Disposition been Completed?: Yes Disposition Time: 13:45 Patient Plan: Discharge <Onofre Fernandez - Last Filed: 11/18/17 17:49> <RaquelSaúl - Last Filed: 11/19/17 17:29> - Disposition Diagnosis: Atypical chest pain, Hypothyroidism Disposition: HOME/ ROUTINE Condition: IMPROVED Discharge Instructions (ExitCare): Hypothyroidism (Underactive Thyroid), Chest Pain (ED) Additional Instructions: -Discharge home with naproxen, bed rest, see your own pmd and or assistant/ cigarette seller within 24-48 hours for the chest pain and hypothyroidism medication adjustment as your TSH 65.20 is and T4 0.45, return to the ER for any new or worsening signs or symptoms. Prescriptions: Naproxen 500 mg PO BID PRN #24 tablet PRN Reason: Other Referrals: Nicolette Thapa MD [Primary Care Provider] - Follow up with primary Servando Muro MD [Staff Provider] - Follow up with primary Kellie Mcgowan MD [Medical Doctor] - Follow up with primary Forms: WORK NOTE
[2017-11-18] MEDS ORDERED: Sodium Chloride 0.9% 1,000 ML IV STA (13:40)
[2017-11-18 14:04] LABS: BASO # 0.05 K/mm3 (0.0-2.0); BASO % 0.8 % (0.0-3.0); EOS # 0.1 (0.0-0.7); EOS % 1.2 % (1.5-5.0); GRAN # 3.27 (1.4-6.5); GRAN % 55.4 % (50.0-68.0); HEMOGLOBIN 13.1 g/dL (12.0-16.0); LYMPH # 2.2 (1.2-3.4); LYMPH % 36.5 % (22.0-35.0); MEAN CELL VOLUME 87.6 fl (80.0-105.0); MEAN CORPUSCULAR HEMOGLOBIN 29.4 pg (25.0-35.0); MEAN CORPUSCULAR HGB CONC 33.6 g/dl (31.0-37.0); MEAN PLATELET VOLUME 10.1 fl (7.0-11.0); MONO # 0.4 (0.1-0.6); MONO % 6.1 % (1.0-6.0); RBC 4.45 10^6/uL (3.5-6.1); WHITE BLOOD COUNT 5.9 10^3/ul (4.5-11.0)
[2017-11-18 14:12] LABS: URINE APPEARANCE CLEAR (CLEAR); URINE BILIRUBIN SMALL (NEGATIVE); URINE BLOOD NEGATIVE (NEGATIVE); URINE COLOR YELLOW (YELLOW); URINE GLUCOSE (UA) NEGATIVE (NEGATIVE); URINE LEUKOCYTE ESTERASE NEGATIVE Leu/uL (NEGATIVE); URINE PROTEIN 30 mg/dL (<30 mg/dL); URINE UROBILINOGEN 0.2 E.U./dL (<1 E.U./dL)
[2017-11-18 14:13] LABS: URINE BACTERIA NEG (NEG); URINE EPITHELIAL CELLS 0 - 2 /hpf (0-5); URINE RBC NEGATIVE /hpf (0-2); URINE WBC 0 - 2 /hpf (0-6)
[2017-11-18 14:16] LABS: ALB/GLOB RATIO 1.5 (1.1-1.8); ALBUMIN 4.7 g/dL (3.0-4.8); ALT/SGPT 19 U/L (7-56); AST/SGOT 24 U/L (14-36); BLOOD UREA NITROGEN 13 mg/dL (7-21); CALCIUM 9.6 mg/dL (8.4-10.5); GFR AFRICAN-AMERICAN > 60; GFR NON-AFRICAN AMERICAN > 60
[2017-11-18 14:28] LABS: TROPONIN I < 0.01 ng/mL
[2017-11-18 14:44] LABS: BARBITURATES, UR NEGATIVE (NEGATIVE); BENZODIAZEPINES, UR NEGATIVE (NEGATIVE); OPIATES, UR NEGATIVE (NEGATIVE); PHENCYCLIDINE, UR NEGATIVE (NEGATIVE)
[2017-11-18 14:48] LABS: FREE T4 0.45 ng/dL (0.78-2.19)
[2017-11-18] MEDS ORDERED: Levothyroxine 50 MCG TAB PO STA (15:41)
[2017-11-18 15:48] VITALS: BP 107/78; O2SAT 99
--- NOTE | 2017-11-18 16:05 | RAD ---
HISTORY: medical clearance COMPARISON: 09/27/2017 FINDINGS: LUNGS: No active pulmonary disease. PLEURA: No significant pleural effusion identified, no pneumothorax apparent. CARDIOVASCULAR: Normal. OSSEOUS STRUCTURES: No significant abnormalities. VISUALIZED UPPER ABDOMEN: Normal. OTHER FINDINGS: None. IMPRESSION: No active disease.
--- NOTE | 2017-11-18 17:08 | CT ---
PROCEDURE: CT HEAD WITHOUT CONTRAST. HISTORY: headache COMPARISON: 06/24/2017 TECHNIQUE: Axial computed tomography images were obtained through the head/brain without intravenous contrast. Radiation dose: Total exam DLP = 926.23 mGy-cm. This CT exam was performed using one or more of the following dose reduction techniques: Automated exposure control, adjustment of the mA and/or kV according to patient size, and/or use of iterative reconstruction technique. FINDINGS: HEMORRHAGE: No intracranial hemorrhage. BRAIN: No mass effect or edema. No atrophy or chronic microvascular ischemic changes. VENTRICLES: Unremarkable. No hydrocephalus. CALVARIUM: Unremarkable. PARANASAL SINUSES: Unremarkable as visualized. No significant inflammatory changes. MASTOID AIR CELLS: Unremarkable as visualized. No inflammatory changes. OTHER FINDINGS: None. IMPRESSION: Normal CT of the Head. No intracranial mass, hemorrhage or evidence of acute infarct.
[2017-11-18 17:46] LABS: TROPONIN I < 0.01 ng/mL
[2017-11-18 18:12] VITALS: PULSE 70; TEMP 98.1
[2017-11-18 18:18] VITALS: RESP 19
--- NOTE | 2017-11-19 09:57 | CARD ---
APPROVED REPORT EKG Measurement Heart [id number] <Conclusion> Normal sinus rhythm with sinus arrhythmia PRWP LAD T wave inversions precordial leads new/increased c/w ECG 09/27/17
== END 2017-11-18 18:18 | disposition home or self-care (01) ==
LOC: ED 13:21
DX: E03.9 Hypothyroidism, unspecified (principal); R07.89 Other chest pain; I48.91 Unspecified atrial fibrillation
CPT/HCPCS: 70450; 71045; 80053; 80324; 80345; 80346; 80349; 80353; 80358; 80361; 81001; 82550; 83615; 83735; 83992; 84439; 84443; 84484; 85025; 93005; 96374; 96375; 99283; J1885; J2765; J7040

== ENCOUNTER 2017-12-13 11:22 | Emergency (ER) | payer MEDICAID ==
[2017-12-13 11:44] VITALS: RESP 18; TEMP 98.2; BMI 40.2
[2017-12-13] MEDS ORDERED: Sodium Chloride 0.9% 500 ML IV STA (11:59)
--- NOTE | 2017-12-13 12:19 | ED PDOC ---
Arrival/HPI - General Historian: Patient - History of Present Illness Time/Duration: Other (2 days) Symptom Onset: Sudden Symptom Course: Unchanged, Intermittent, [place] Quality: Stabbing Severity Level: 9 Activities at Onset: Rest Context: Home (laying in bed) - General Chief Complaint: Abdominal Pain Time Seen by Provider: 12/13/17 11:30 - History of Present Illness Narrative History of Present Illness (Text): 12/13/17 12:02 Patient is a 26 year old female with a past medical history of hypothyroidisim, A. Fib, syncopal episodes, and nephrolithiasis who presents to the Emergency department complaining of abdominal pain that started suddenly 2 nights ago while she was laying in bed. Patient describes the pain as intermittent/colicky, sharp, stabbing, and 9/10 intensity, located in the left middle to upper quadrant. Patient says before it started she had ribs and mashed potatoes for dinner and does not recall eating anything new or different that day. Patient admits to associated vomiting that started yesterday (5-6 episode yesterday and 2 episodes today). She also admits to chills that started last night and 1 episode of nonbloody diarrhea this morning. Patient says she had some constipation 2 weeks ago after she had her loop recorder placed but she had some miralax and it resolved. Patient also notes that her menstrual cycle was a little different this month. She says she started on December 05, which was a few days late (she is usually regular at every 28 days), and it only last 3 days as opposed to her usual 7 days. Patient admits that there is a possibility she could be as she is sexually active and does not use protection. Patient denies fever, headache, dizziness, myalgias, chest pain, shortness of breath, new onset palpitations (usually has them due to A Fib), cough, dysuria, urgency, frequency, and lower extremity pain/swelling. PMH: hypothyroidisim, A. Fib, syncopal episodes, and nephrolithiasis Ob History: Still born (2003), miscarriage (2005), and 3 full term vaginal deliveries Meds: Synthroid 50 mcg daily Allergies: PCN, Sulfa PSH: D&C (2005), Lap Pily (2011), loop recorder (2 weeks ago) FH: mother with breast cancer, hypertension, CHF, and diabetes; father with CHF SH: occasional social alcohol use; denies tobacco and drug use; currently sexually active and no protection (Rena Kaiser) Past Medical History - Infectious Disease Hx of Infectious Diseases: None - Reproductive Currently : Unknown - Cardiac Hx Cardiac Disorders: Yes (irregular heart rate) Hx Atrial Fibrillation: Yes (loop recorder) - Pulmonary Hx Respiratory Disorders: No - Neurological Hx Syncope: Yes - HEENT Hx HEENT Disorder: No - Renal Hx Renal Disorder: No - Endocrine/Metabolic Hx Endocrine Disorders: Yes Hx Hypothyroidism: Yes - Hematological/Oncological Hx Blood Disorders: No - Integumentary Hx Dermatological Disorder: No - Musculoskeletal/Rheumatological Hx Musculoskeletal Disorders: No - Gastrointestinal Hx Gastrointestinal Disorders: No - Genitourinary/Gynecological Hx Genitourinary Disorders: No - Psychiatric Hx Psychophysiologic Disorder: No Hx Substance Use: No - Surgical History Hx Cholecystectomy: Yes (2011) Hx Dilation and Curettage: Yes Other/Comment: Loop recorder - 2 weeks ago - Anesthesia Hx Anesthesia: No Hx Anesthesia Reactions: No Hx Malignant Hyperthermia: No Family/Social History Family/Social History: Diabetes (mother), Hypertension (mother), Neoplasm/ Cancer (breast - mother) Smoking Status: Never Smoked Hx Alcohol Use: Yes Frequency of alcohol use: Socially Hx Substance Use: No Allergies/Home Meds Allergies/Adverse Reactions: Allergies Penicillins Allergy (Verified 11/18/17 13:40) RASH Sulfa (Sulfonamide Antibiotics) Allergy (Verified 11/18/17 13:40) RASH Home Medications: Home Meds Medication Instructions Recorded Confirmed Levothyroxine [Synthroid] 50 mcg PO DAILY 03/17/17 12/13/17 Review of Systems - Physician Review All systems were reviewed & negative as marked: Yes (as per HPI) - Review of Systems Constitutional: Other (chills). absent: Fevers Eyes: Normal ENT: Normal Cardiovascular: Palpitations (not new). absent: Calf Pain Gastrointestinal: Abdominal Pain, Diarrhea, Nausea, Vomiting, Appetite Changes ( decreased). absent: Hematochezia, Hematemesis Genitourinary Female: absent: Dysuria, Frequency, Hematuria, Urine Output Changes Musculoskeletal: Back Pain (patient attributes this to disk herniation). absent : Myalgias Skin: Normal. absent: Rash Neurological: Normal Endocrine: Normal Hemo/Lymphatic: Normal Psychiatric: Normal Physical Exam - Systems Exam Head: Present: Atraumatic, Normocephalic Pupils: Present: PERRL Extroacular Muscles: Present: EOMI Conjunctiva: Present: Normal Mouth: Present: Dry Neck: Present: Normal Range of Motion Respiratory/Chest: Present: Clear to Auscultation, Good Air Exchange. No: Respiratory Distress, Accessory Muscle Use Cardiovascular: Present: Regular Rate and Rhythm, Normal S1, S2. No: Murmurs, Irregular Rhythm Abdomen: Present: Tenderness (LUQ, left mid abdomen, mild left flank), Other ( obese abdomen). No: Distention, Normal Bowel Sounds (hypoactive), Peritoneal Signs Back: Present: Paraspinal Tenderness (mild, lower thoracic-upper lumbar area). No: CVA Tenderness Upper Extremity: Present: Normal Inspection. No: Cyanosis, Edema Lower Extremity: Present: Normal Inspection. No: Edema Neurological: Present: GCS=15, Speech Normal Skin: Present: Warm, Dry, Normal Color. No: Rashes Psychiatric: Present: Alert, Oriented x 3, Normal Insight, Normal Concentration Vital Signs Temp Pulse Resp BP Pulse Ox 12/13/17 12:40 69 18 112/74 98 12/13/17 11:38 98.2 F 73 18 110/79 97 Medical Decision Making ED Course and Treatment: 12/13/17 13:14 Afebrile, no leukocytosis Urine : negative CT Abdomen/Pelvis: No acute abnormalities Patient is stable for discharge with follow up with her PCP and Roper Operator for the loop recorder that was placed. (Rena Kaiser) 12/13/17 14:28 Patient seen by the resident and then evaluated by me. Patient presenting with vomiting and epigastric pain. Scant epigastric tenderness on exam. No dysuria. Labs grossly normal. UA shows hematuria but no infection. CT negative. On reevaluation, abdomen is soft NT/ND and patient is tolerating po. She was instructed to follow-up for hematuria and follow-up with GI for further evaluation. Discharged with pepcid. (Florencia Marc) - Lab Interpretations Lab Results: 12/13/17 12:05 12/13/17 12:05 Lab Results 12/13/17 12:05: Sodium 146, Potassium 3.9, Chloride 107, Carbon Dioxide 27, Anion Gap 17, BUN 9, Creatinine 0.7, Est GFR ( Amer) > 60, Est GFR (Non- Af Amer) > 60, Random Glucose 107, Calcium 9.8, Phosphorus 3.6, Magnesium 2.0, Total Bilirubin 1.5 H, AST 18, ALT 23, Alkaline Phosphatase 64, Total Protein 7.5, Albumin 4.4, Globulin 3.1, Albumin/Globulin Ratio 1.4, Lipase 87 12/13/17 12:05: Urine Color Yellow, Urine Appearance Clear, Urine pH 8.0, Ur Specific [place] 1.015, Urine Protein Trace H, Urine Glucose (UA) Negative, Urine Ketones Negative, Urine Blood Trace-intact H, Urine Nitrate Negative, Urine Bilirubin Negative, Urine Urobilinogen 0.2, Ur Leukocyte Esterase Negative , Urine RBC 2 - 5, Urine WBC 0 - 2, Ur Epithelial Cells 6 - 8, Urine Bacteria Mod 12/13/17 12:05: WBC 4.0 L D, RBC 4.44, Hgb 13.2, Hct 38.8, MCV 87.4, MCH 29.7, MCHC 34.0, RDW 12.8, Plt Count 197, MPV 10.7, Gran % 52.3, Lymph % (Auto) 38.8 H , [place] % (Auto) 7.2 H, Eos % (Auto) 1.2 L, Baso % (Auto) 0.5, Gran # 2.10, Lymph # (Auto) 1.6, [place] # (Auto) 0.3, Eos # (Auto) 0.1, Baso # (Auto) 0.02 - RAD Interpretation Radiology Orders: 12/13/17 11:58 ABD & PELVIS W/O PO OR IV CONT [CT] Stat - Medication Orders Current Medication Orders: Discontinued Medications Sodium Chloride (Sodium Chloride 0.9%) 500 mls @ 999 mls/hr IV .Q31M STA Stop: 12/13/17 12:29 Last Admin: 12/13/17 12:18 Dose: 999 mls/hr eMAR Start Stop Document 12/13/17 12:18 HI (Rec: 12/13/17 12:18 HI [id number]) Intravenous Solution Start Date 12/13/17 Start Time 12:18 Ketorolac Tromethamine (Toradol) 30 mg IVP STAT STA Stop: 12/13/17 12:00 Last Admin: 12/13/17 12:18 Dose: 30 mg MAR Pain Assessment Document 12/13/17 12:18 HI (Rec: 12/13/17 12:18 HI [id number]) Pain Reassessment Is this a pain reassessment? No Sleep Is patient sleeping during reassessment? No Presence of Pain Presence of Pain Yes Location Upper or Lower Lower Pain Location Body Site Abdomen IVP Administration Document 12/13/17 12:18 HI (Rec: 12/13/17 12:18 HI [id number]) Charges for Administration # of IVP Administrations 1 - PA / [employer] HOME / Resident Statement / has reviewed & agrees with the documentation as recorded. / has examined the patient and agrees with the treatment plan. Disposition/Present on Arrival - Present on Arrival Any Indicators Present on Arrival: No History of DVT/PE: No History of Uncontrolled Diabetes: No Urinary Catheter: No History of Decub. Ulcer: No History Surgical Site Infection Following: None - Disposition Have Diagnosis and Disposition been Completed?: Yes Disposition Time: 14:10 Patient Plan: Discharge - Disposition Diagnosis: Gastritis, Abdominal pain, Hematuria Disposition: HOME/ ROUTINE Patient Problems: Current Active Problems Problem Status Onset Gastritis Acute Abdominal pain Acute Hematuria Acute Condition: STABLE Discharge Instructions (ExitCare): Acute Abdomen (Belly Pain), Adult (DC) Additional Instructions: Please follow up with your primary care provider within one week. Please follow up with your photographic specialist for the loop recorder you had placed. Please return to your nearest ER if you experience new or worsening symptoms. Prescriptions: Famotidine [Pepcid] 20 mg PO BID #60 tab Referrals: Urban Denton DO [Staff Provider] - Follow up with primary Forms: [employer] ([place])
[2017-12-13 12:24] LABS: URINE BILIRUBIN NEGATIVE (NEGATIVE); URINE BLOOD TRACE-INTACT (NEGATIVE); URINE GLUCOSE (UA) NEGATIVE (NEGATIVE); URINE LEUKOCYTE ESTERASE NEGATIVE Leu/uL (NEGATIVE); URINE PROTEIN TRACE mg/dL (<30 mg/dL); URINE UROBILINOGEN 0.2 E.U./dL (<1 E.U./dL)
[2017-12-13 12:25] LABS: BASO # 0.02 K/mm3 (0.0-2.0); BASO % 0.5 % (0.0-3.0); EOS # 0.1 (0.0-0.7); EOS % 1.2 % (1.5-5.0); GRAN # 2.1 (1.4-6.5); GRAN % 52.3 % (50.0-68.0); HEMOGLOBIN 13.2 g/dL (12.0-16.0); LYMPH # 1.6 (1.2-3.4); LYMPH % 38.8 % (22.0-35.0); MEAN CELL VOLUME 87.4 fl (80.0-105.0); MEAN CORPUSCULAR HEMOGLOBIN 29.7 pg (25.0-35.0); MEAN PLATELET VOLUME 10.7 fl (7.0-11.0); MONO # 0.3 (0.1-0.6); MONO % 7.2 % (1.0-6.0); RBC 4.44 10^6/uL (3.5-6.1); RED CELL DISTRIBUTION WIDTH 12.8 % (11.5-14.5)
[2017-12-13 12:29] LABS: URINE APPEARANCE CLEAR (CLEAR); URINE COLOR YELLOW (YELLOW)
[2017-12-13 12:34] LABS: ALB/GLOB RATIO 1.4 (1.1-1.8); ALBUMIN 4.4 g/dL (3.0-4.8); ALT/SGPT 23 U/L (7-56); AST/SGOT 18 U/L (14-36); BLOOD UREA NITROGEN 9 mg/dL (7-21); CALCIUM 9.8 mg/dL (8.4-10.5); GFR AFRICAN-AMERICAN > 60; GFR NON-AFRICAN AMERICAN > 60; LIPASE 87 U/L (23-300)
[2017-12-13 12:40] LABS: URINE WBC 0 - 2 /hpf (0-6)
[2017-12-13 12:41] LABS: URINE BACTERIA MOD (NEG)
[2017-12-13 12:48] VITALS: O2SAT 98
--- NOTE | 2017-12-13 13:43 | CT ---
PROCEDURE: CT Abdomen and Pelvis without intravenous contrast HISTORY: L sided flank pain COMPARISON: None. TECHNIQUE: Without contrast. Contrast Dose: Radiation dose: Total exam DLP = Total exam DLP = 867 mGy-cm. This CT exam was performed using one or more of the following dose reduction techniques: Automated exposure control, adjustment of the mA and/or kV according to patient size, and/or use of iterative reconstruction technique. FINDINGS: LOWER THORAX: Unremarkable. LIVER: Unremarkable. No gross lesion or ductal dilatation. GALLBLADDER AND BILE DUCTS: Gallbladder removed PANCREAS: Unremarkable. No gross lesion or ductal dilatation. SPLEEN: Unremarkable. ADRENALS: Unremarkable. No mass. KIDNEYS AND URETERS: Unremarkable. No hydronephrosis. No solid mass. VASCULATURE: Unremarkable. No aortic aneurysm. BOWEL: Unremarkable. No obstruction. No gross mural thickening. APPENDIX: Unremarkable. Normal appendix. PERITONEUM: Unremarkable. No free fluid. No free air. LYMPH NODES: Unremarkable. No enlarged lymph nodes. BLADDER: Unremarkable. REPRODUCTIVE: Unremarkable. BONES: No acute fracture. OTHER FINDINGS: None. IMPRESSION: No acute findings
[2017-12-13] MEDS ORDERED: Famotidine 20mg/50ml Premix IVPB STA (14:43)
[2017-12-13] MEDS ORDERED: Alum-Mag Hydrox-Simethicone Susp (30 mL) PO STA (15:06)
[2017-12-13] MEDS ORDERED: Atrop/Hyosc/Scopal/PB Elixir (120 ml) PO STA (15:08)
[2017-12-13 15:20] VITALS: BP 114/78; PULSE 65
== END 2017-12-13 15:27 | disposition home or self-care (01) ==
LOC: ED 11:22
DX: K29.70 Gastritis, unspecified, without bleeding (principal); R31.9 Hematuria, unspecified; R10.9 Unspecified abdominal pain; Z90.49 Acquired absence of other specified parts of digestive tract
CPT/HCPCS: 74176; 80053; 81001; 83690; 83735; 84100; 85025; 96374; 99284; J1885; J7040

== ENCOUNTER 2018-02-03 20:59 | Emergency (ER) | payer MEDICAID ==
[2018-02-03 21:19] VITALS: BMI 40.6
[2018-02-03] MEDS ORDERED: Sodium Chloride 0.9% 1,000 ML IV STA (21:33)
--- NOTE | 2018-02-03 21:50 | ED PDOC ---
Arrival/HPI <Viet Mathias - Last Filed: 02/04/18 02:40> - General Historian: Patient - History of Present Illness Time/Duration: Other (2 days) Symptom Onset: Gradual Symptom Course: Worsening Quality: Aching, Pressure, Cramping Severity Level: Mild <KingaLupe Lewis - Last Filed: 02/04/18 03:20> - General Chief Complaint: Chest Pain Time Seen by Provider: 02/03/18 21:20 - History of Present Illness Narrative History of Present Illness (Text): 02/03/18 21:47 27-year-old female with a history of hypothyroidism, atrial fibrillation, syncope presents today with chest pain for the past 2 days. Patient states she has a history of chronic intermittent chest pain with syncope for which she had a loop recorder put in in November and states that this is the same pain that she has been getting for the past year. Patient denies fevers or chills. She denies cough. She denies shortness of breath. She is describing a burning and pressure sensation across the chest that has been ongoing for the past 2 days. Patient also states she has lower abdominal pain for 2 days with one episode of vomiting this morning and diarrhea for the past 2 days. She denies pain to the back. Denies urinary symptoms. No bladder or bowel incontinence. No medications have been taken at home. pt states she vomited this morning but was able to eat and sandwich for lunch and scottish food for dinner. No other complaints. (Lupe Donato) Past Medical History - Provider Review Nursing Documentation Reviewed: Yes - Travel History Have you recently traveled outside [place] w/in the past 3 mons?: No - Infectious Disease Hx of Infectious Diseases: None - Tetanus Immunization Tetanus Immunization: Unknown - Cardiac Hx Atrial Fibrillation: Yes - Pulmonary Hx Respiratory Disorders: No - Neurological Hx Syncope: Yes - HEENT Hx HEENT Disorder: No - Renal Hx Renal Disorder: No - Endocrine/Metabolic Hx Endocrine Disorders: Yes Hx Hypothyroidism: Yes - Hematological/Oncological Hx Blood Disorders: No - Integumentary Hx Dermatological Disorder: No - Musculoskeletal/Rheumatological Hx Musculoskeletal Disorders: No - Gastrointestinal Hx Gastrointestinal Disorders: No - Genitourinary/Gynecological Hx Genitourinary Disorders: No - Psychiatric Hx Psychophysiologic Disorder: No Hx Substance Use: No - Surgical History Other/Comment: DNC, gallbladder - Anesthesia Hx Anesthesia: No Hx Anesthesia Reactions: No Hx Malignant Hyperthermia: No <Lupe Donato - Last Filed: 02/04/18 03:20> Family/Social History - Physician Review Nursing Documentation Reviewed: Yes Family/Social History: Unknown Family HX Smoking Status: Never Smoked Hx Alcohol Use: Yes Hx Substance Use: No <Lupe Donato - Last Filed: 02/04/18 03:20> Allergies/Home Meds <Viet Mathias - Last Filed: 02/04/18 02:40> <Lupe Donato - Last Filed: 02/04/18 03:20> Allergies/Adverse Reactions: Allergies Penicillins Allergy (Verified 11/18/17 13:40) RASH Sulfa (Sulfonamide Antibiotics) Allergy (Verified 11/18/17 13:40) RASH Home Medications: Home Meds Medication Instructions Recorded Confirmed Levothyroxine [Synthroid] 50 mcg PO DAILY 03/17/17 02/04/18 Review of Systems - Review of Systems Constitutional: absent: Fatigue, Fevers Respiratory: absent: SOB, Cough Cardiovascular: Chest Pain. absent: Palpitations Gastrointestinal: Abdominal Pain, Diarrhea, Vomiting. absent: Nausea, Appetite Changes Genitourinary Female: absent: Dysuria, Frequency, Hematuria Musculoskeletal: absent: Arthralgias, Back Pain, Neck Pain Skin: absent: Rash, Pruritis Neurological: absent: Headache, Dizziness Psychiatric: absent: Anxiety, Depression, Suicidal Ideation <Lupe Donato - Last Filed: 02/04/18 03:20> Physical Exam Vital Signs Reviewed: Yes Temperature: Afebrile Blood Pressure: Normal Pulse: Regular Respiratory Rate: Normal Appearance: Positive for: Well-Appearing, Non-Toxic, Comfortable Pain Distress: None Mental Status: Positive for: Alert and Oriented X 3 - Systems Exam Head: Present: Atraumatic Mouth: Present: Moist Mucous Membranes Neck: Present: Normal Range of Motion Respiratory/Chest: Present: Clear to Auscultation, Good Air Exchange. No: Respiratory Distress, Accessory Muscle Use Cardiovascular: Present: Regular Rate and Rhythm, Normal S1, S2. No: Murmurs Abdomen: Present: Tenderness (+ lower abdominal tenderness/suprapubic tenderness ), Normal Bowel Sounds. No: Distention, Peritoneal Signs, Rebound, Guarding, McBur[place]'s Point Tender Back: Present: Normal Inspection. No: CVA Tenderness, Midline Tenderness, Paraspinal Tenderness Upper Extremity: Present: Normal ROM Lower Extremity: Present: Normal Inspection Neurological: Present: GCS=15, Speech Normal Skin: Present: Warm, Dry, Normal Color Psychiatric: Present: Alert, Oriented x 3 <Lupe Donato - Last Filed: 02/04/18 03:20> Vital Signs Temp Pulse Resp BP Pulse Ox 02/04/18 01:54 86 16 129/90 99 02/03/18 23:35 98 F 69 16 108/61 97 Medical Decision Making <Viet Mathias - Last Filed: 02/04/18 02:40> Reassessment Condition: Re-examined, Improved <Lupe Donato - Last Filed: 02/04/18 03:20> ED Course and Treatment: 02/03/18 21:49 Patient is nontoxic well appearing with stable vital signs presenting with lower abdominal pain and chest pain CBC wnl CMP wnl Lipase wnl trop; wnl Urinalysis + bacteria CAT scan: FINDINGS: Lung bases: There is minimal bibasilar atelectasis. ABDOMEN: Liver: Unremarkable. No mass. Gallbladder and bile ducts: There has been a cholecystectomy. No ductal dilation. Pancreas: Unremarkable. No mass. No ductal dilation. Spleen: Unremarkable. No splenomegaly. Adrenals: Unremarkable. No mass. Kidneys and ureters: Unremarkable. No solid mass. No hydronephrosis. Stomach and bowel: Unremarkable. No obstruction. No mucosal thickening. PELVIS: Appendix: The appendix is top normal to mildly prominent measuring 6-7 mm. No adjacent inflammatory stranding to suggest acute appendicitis. Bladder: Unremarkable. No mass. Reproductive: Unremarkable as visualized. ABDOMEN and PELVIS: Intraperitoneal space: Unremarkable. No free air. No significant fluid collection. Bones/joints: No acute fracture. No dislocation. Soft tissues: There is a fat-containing umbilical hernia. Vasculature: Unremarkable. No abdominal aortic aneurysm. Lymph nodes: Unremarkable. No enlarged lymph nodes. IMPRESSION: No acute intra-abdominal or pelvic abnormality. Cholecystectomy. cxr: no infiltrate EKG normal sinus rhythm at [address] elevations QTC 442 normal intervals Patient reassessment: pt feeling better; states cp has resolved. denies any nausea at present time. c/o only of suprapubic pressure. macrobid given PO for UTI. Discussed all results with patient in depth I advised patient of urinary tract infection and need for antibiotics twice daily 10 days. Advised increasing fluids and following up with the primary care physician within the next 2 days. I've advised immediate return if symptoms worsen persist or if new concerning symptoms develop. Patient verbalizes understanding of discharge instructions and need for immediate followup. all aspects of this case were discussed the attending of record. Impression: Abdominal pain, UTI, chest pain Motrin every 6 hours as needed for pain macrobid; 1 tablet twice daily x 10 days Follow up with primary care physician within the next 2 days Follow up with the GI specialist within the next 2 days. Return immediately if symptoms worsen persist or if new symptoms develop: High fevers, increasing pain, vomiting, diarrhea or any other concerning symptoms develop (Lupe Donato) - Lab Interpretations Lab Results: 02/03/18 22:50 02/03/18 22:50 Lab Results 02/03/18 22:50: Lipase 73 02/03/18 22:50: WBC 7.1 D, RBC 4.47, Hgb 13.1, Hct 39.0, MCV 87.2, MCH 29.3, MCHC 33.6, RDW 12.6, Plt Count 180, MPV 10.6, Gran % 61.3, Lymph % (Auto) 29.6, [place] % (Auto) 7.4 H, Eos % (Auto) 1.1 L, Baso % (Auto) 0.6, Gran # 4.36, Lymph # (Auto) 2.1, [place] # (Auto) 0.5, Eos # (Auto) 0.1, Baso # (Auto) 0.04 02/03/18 22:50: Beta HCG, Quant < 2.39 02/03/18 22:50: Sodium 142, Potassium 3.7, Chloride 105, Carbon Dioxide 27, Anion Gap 15, BUN 9, Creatinine 0.8, Est GFR ( Amer) > 60, Est GFR (Non- Af Amer) > 60, Random Glucose 104, Calcium 9.0, Total Bilirubin 1.4 H, AST 17, ALT 17, Alkaline Phosphatase 65, Lactate Dehydrogenase 312 L, Total Creatine Kinase 36, Troponin I < 0.01, Total Protein 6.8, Albumin 4.0, Globulin 2.8, Albumin/Globulin Ratio 1.4 02/03/18 22:36: Urine Color Yellow, Urine Appearance Sl cloudy, Urine pH 6.0, Ur Specific [place] >= 1.030, Urine Protein 100 H, Urine Glucose (UA) Negative, Urine Ketones Trace H, Urine Blood Trace-lysed H, Urine Nitrate Negative, Urine Bilirubin Negative, Urine Urobilinogen 0.2, Ur Leukocyte Esterase Moderate H, Urine RBC 0 - 2, Urine WBC 2 - 5, Ur Epithelial Cells 4 - 5, Urine Bacteria Mod - RAD Interpretation Radiology Orders: 02/03/18 21:33 ABD & PELVIS IV CONTRAST ONLY [CT] Stat CHEST PORTABLE [RAD] Stat - Medication Orders Current Medication Orders: Nitrofurantoin Macrocrystals (Macrobid) 100 mg PO STAT STA PRN Reason: Protocol Stop: 02/04/18 03:13 Discontinued Medications Famotidine (Pepcid) 20 mg IVP STAT STA Stop: 02/03/18 21:34 Last Admin: 02/03/18 22:45 Dose: 20 mg IVP Administration Document 02/03/18 22:45 (Rec: 02/03/18 22:57 [id number] Charges for Administration # of IVP Administrations 1 Sodium Chloride (Sodium Chloride 0.9%) 1,000 mls @ 999 mls/hr IV .Q1H1M STA Stop: 02/03/18 22:33 Last Admin: 02/03/18 22:10 Dose: 999 mls/hr eMAR Start Stop Document 02/03/18 22:10 RG (Rec: 02/03/18 22:57 [id number] Intravenous Solution Start Date 02/03/18 Start Time 22:10 End Date 02/03/18 Ketorolac Tromethamine (Toradol) 30 mg IVP STAT STA Stop: 02/03/18 21:35 Last Admin: 02/03/18 22:35 Dose: 30 mg MAR Pain Assessment Document 02/03/18 22:35 RG (Rec: 02/03/18 22:59 [id number][facility] Pain Reassessment Is this a pain reassessment? Yes Location Upper or Lower Lower Pain Location Body Site Abdomen Description Intensity of Pain at present 5 IVP Administration Document 02/03/18 22:35 RG (Rec: 02/03/18 22:59 [id number]) Charges for Administration # of IVP Administrations 1 - PA / BRICK PAVING CHECKER / Resident Statement MD/DO has reviewed & agrees with the documentation as recorded. <Viet Mathias - Last Filed: 02/04/18 02:40> Disposition/Present on Arrival <Viet Mathias - Last Filed: 02/04/18 02:40> - Present on Arrival Any Indicators Present on Arrival: No History of DVT/PE: No History of Uncontrolled Diabetes: No Urinary Catheter: No History of Decub. Ulcer: No History Surgical Site Infection Following: None - Disposition Have Diagnosis and Disposition been Completed?: Yes Disposition Time: 03:19 Patient Plan: Discharge <KingaLupe T - Last Filed: 02/04/18 03:20> - Disposition Diagnosis: Abdominal pain, Urinary tract infection, Chest pain Disposition: HOME/ ROUTINE Condition: GOOD Discharge Instructions (ExitCare): Chest Pain (ED), Urinary Tract Infections in Adults, Acute Abdomen (Belly Pain), Adult (DC), Chest Pain (DC) Additional Instructions: Motrin every 6 hours as needed for pain pepcid; 1 tablet daily macrobid; 1 tablet twice daily x 10 days Follow up with primary care physician within the next 2 days Follow up with the GI specialist within the next 2 days. Return immediately if symptoms worsen persist or if new symptoms develop: High fevers, increasing pain, vomiting, diarrhea or any other concerning symptoms develop Prescriptions: Famotidine [Pepcid] 20 mg PO DAILY #30 tab Ibuprofen [Motrin] 600 mg PO Q6H PRN #20 tab PRN Reason: pain/fever reduction Nitrofurantoin Macrocrystals [Macrobid] 100 mg PO BID #20 cap Referrals: Andrea Cervantes MD [Primary Care Provider] - Follow up with primary Consuelo Renteria MD [Medical Doctor] - Follow up with primary Forms: SYSTRAN (Kittitian)
[2018-02-03 23:10] LABS: ALB/GLOB RATIO 1.4 (1.1-1.8); ALT/SGPT 17 U/L (7-56); AST/SGOT 17 U/L (14-36); BLOOD UREA NITROGEN 9 mg/dL (7-21); GFR AFRICAN-AMERICAN > 60; GFR NON-AFRICAN AMERICAN > 60
[2018-02-03] MEDS ORDERED: Iohexol 350 MG/100 ML VIAL ONE (23:19)
[2018-02-03 23:21] LABS: BASO # 0.04 K/mm3 (0.0-2.0); BASO % 0.6 % (0.0-3.0); EOS # 0.1 (0.0-0.7); EOS % 1.1 % (1.5-5.0); GRAN # 4.36 (1.4-6.5); GRAN % 61.3 % (50.0-68.0); HEMOGLOBIN 13.1 g/dL (12.0-16.0); LYMPH # 2.1 (1.2-3.4); LYMPH % 29.6 % (22.0-35.0); MEAN CELL VOLUME 87.2 fl (80.0-105.0); MEAN CORPUSCULAR HEMOGLOBIN 29.3 pg (25.0-35.0); MEAN CORPUSCULAR HGB CONC 33.6 g/dl (31.0-37.0); MEAN PLATELET VOLUME 10.6 fl (7.0-11.0); MONO # 0.5 (0.1-0.6); MONO % 7.4 % (1.0-6.0); RBC 4.47 10^6/uL (3.5-6.1); RED CELL DISTRIBUTION WIDTH 12.6 % (11.5-14.5); TROPONIN I < 0.01 ng/mL; WHITE BLOOD COUNT 7.1 10^3/ul (4.5-11.0)
[2018-02-03 23:31] LABS: URINE BILIRUBIN NEGATIVE (NEGATIVE); URINE BLOOD TRACE-LYSED (NEGATIVE); URINE GLUCOSE (UA) NEGATIVE (NEGATIVE); URINE LEUKOCYTE ESTERASE MODERATE Leu/uL (NEGATIVE); URINE PROTEIN 100 mg/dL (<30 mg/dL); URINE UROBILINOGEN 0.2 E.U./dL (<1 E.U./dL)
[2018-02-03 23:33] LABS: URINE APPEARANCE SL CLOUDY (CLEAR); URINE COLOR YELLOW (YELLOW)
[2018-02-03 23:54] LABS: URINE RBC 0 - 2 /hpf (0-2)
[2018-02-03 23:55] LABS: URINE BACTERIA MOD (NEG)
[2018-02-04 03:38] VITALS: BP 103/60; PULSE 74; RESP 18; TEMP 97.9; O2SAT 100
--- NOTE | 2018-02-04 08:50 | CT ---
PROCEDURE: CT Abdomen and Pelvis with contrast HISTORY: Abdominal pain. Negative test (concurrent with this examination). COMPARISON: 12/13/2017 CT abdomen and pelvis. 09/27/2017 CT abdomen and pelvis TECHNIQUE: Contrast dose: 100 cc Omnipaque 350 Radiation dose: Total exam DLP = 912.50 mGy-cm. This CT exam was performed using one or more of the following dose reduction techniques: Automated exposure control, adjustment of the mA and/or kV according to patient size, and/or use of iterative reconstruction technique. FINDINGS: LOWER THORAX: Unremarkable. LIVER: Hepatomegaly, hepatic steatosis. GALLBLADDER AND BILE DUCTS: Status post cholecystectomy. No abnormality is seen in the gallbladder fossa. PANCREAS: Unremarkable. No gross lesion or ductal dilatation. SPLEEN: Unremarkable. ADRENALS: Unremarkable. No mass. KIDNEYS AND URETERS: Unremarkable. No hydronephrosis. No solid mass. VASCULATURE: Unremarkable. No aortic aneurysm. BOWEL: Unremarkable. No obstruction. No gross mural thickening. APPENDIX: Normal appendix. PERITONEUM: Unremarkable. No free fluid. No free air. LYMPH NODES: Unremarkable. No enlarged lymph nodes. BLADDER: Unremarkable. REPRODUCTIVE: Unremarkable. BONES: No acute fracture. OTHER FINDINGS: None. IMPRESSION: No acute findings related to/accounting for the clinical presentation. Additional benign and/or incidental findings described above. No significant interval change compared to the prior examination(s). Concordant results (preliminary interpretation) provided by [facility]. Procedure Completed: 00:13 Preliminary ([facility]) Report: Dictated and Authenticated: 01:11 Final Interpretation: 08:48
--- NOTE | 2018-02-04 10:28 | RAD ---
HISTORY: Chest pain COMPARISON: 11/18/2017 FINDINGS: LUNGS: No active pulmonary disease. PLEURA: No significant pleural effusion identified, no pneumothorax apparent. CARDIOVASCULAR: Normal. OSSEOUS STRUCTURES: No significant abnormalities. VISUALIZED UPPER ABDOMEN: Normal. OTHER FINDINGS: None. IMPRESSION: No active disease. No significant interval change compared to the prior examination(s).
--- NOTE | 2018-02-04 17:04 | CARD ---
APPROVED REPORT EKG Measurement Heart [id number] <Conclusion> Normal sinus rhythm Cannot rule out Anterior infarct, age undetermined Abnormal ECG
== END 2018-02-04 03:35 | disposition home or self-care (01) ==
LOC: ED 20:59
DX: N39.0 Urinary tract infection, site not specified (principal); R07.9 Chest pain, unspecified; R10.30 Lower abdominal pain, unspecified; I48.91 Unspecified atrial fibrillation; E03.9 Hypothyroidism, unspecified
CPT/HCPCS: 71045; 74177; 80053; 81001; 82550; 83615; 83690; 84484; 84702; 85025; 87086; 93005; 96374; 96375; 99284; J1885; J7030; Q9967

== ENCOUNTER 2018-02-05 19:58 | Observation (INO) | payer MEDICAID ==
[2018-02-05 19:58] VITALS: BMI 40.6
--- NOTE | 2018-02-05 21:05 | ED PDOC ---
Arrival/HPI - General Chief Complaint: Back Pain Time Seen by Provider: 02/05/18 20:28 Historian: Patient - History of Present Illness Narrative History of Present Illness (Text): 02/05/18 20:47 27 year old female, with past medical history of hypothyroidism, paroxymal A- fib and syncope, presents to the Emergency department complaining of ongoing intermittent chest discomfort past 2 days and some abdominal discomfort.Now with mid lower back associated with numbness to her lower legs. Patient states she was examined in the Emergency department 2 days ago where following CT w/ IV contrast developed some milder back discomfort. Patient states the pain seemed to have improved spontaneously. Patient now presents with recurrent chest pain and back discomfort, for which requests medical evaluation. Patient states she felt subjective day prior but no chills, nausea, vomiting, diarrhea, shortness of breath or any other complaints.No change in bowel or urinary habits. Time/Duration: < week (2 days) Symptom Onset: Gradual Symptom Course: Unchanged Quality: Aching Activities at Onset: Light Context: Home Past Medical History - Provider Review Nursing Documentation Reviewed: Yes - Infectious Disease Hx of Infectious Diseases: None - Tetanus Immunization Tetanus Immunization: Unknown - Cardiac Hx Cardiac Disorders: Yes Hx Atrial Fibrillation: Yes - Pulmonary Hx Respiratory Disorders: No - Neurological Hx Neurological Disorder: Yes Hx Syncope: Yes - HEENT Hx HEENT Disorder: No - Renal Hx Renal Disorder: No - Endocrine/Metabolic Hx Endocrine Disorders: Yes Hx Hypothyroidism: Yes - Hematological/Oncological Hx Blood Disorders: No - Integumentary Hx Dermatological Disorder: No - Musculoskeletal/Rheumatological Hx Musculoskeletal Disorders: No - Gastrointestinal Hx Gastrointestinal Disorders: No - Genitourinary/Gynecological Hx Genitourinary Disorders: No - Psychiatric Hx Psychophysiologic Disorder: No Hx Substance Use: No - Surgical History Hx Cholecystectomy: Yes Hx Dilation and Curettage: Yes - Anesthesia Hx Anesthesia: No Hx Anesthesia Reactions: No Hx Malignant Hyperthermia: No Family/Social History - Physician Review Nursing Documentation Reviewed: Yes Family/Social History: No Known Family HX Smoking Status: Never Smoked Hx Alcohol Use: Yes Hx Substance Use: No Allergies/Home Meds Allergies/Adverse Reactions: Allergies Penicillins Allergy (Verified 02/05/18 20:17) RASH Sulfa (Sulfonamide Antibiotics) Allergy (Verified 02/05/18 20:17) RASH Home Medications: Home Meds Medication Instructions Recorded Confirmed Levothyroxine [Synthroid] 50 mcg PO DAILY 03/17/17 02/05/18 Review of Systems - Physician Review All systems were reviewed & negative as marked: Yes - Review of Systems Constitutional: Normal. absent: Fevers Eyes: Normal ENT: Normal Respiratory: Normal. absent: SOB Cardiovascular: Chest Pain Gastrointestinal: Abdominal Pain. absent: Diarrhea, Nausea, Vomiting Genitourinary Female: Normal Musculoskeletal: Back Pain Skin: Normal Neurological: Normal Endocrine: Normal Hemo/Lymphatic: Normal Psychiatric: Normal Physical Exam Vital Signs Reviewed: Yes Vital Signs Temp Pulse Resp BP Pulse Ox 02/05/18 20:18 98.8 F 81 18 119/75 100 Temperature: Afebrile Blood Pressure: Normal Pulse: Regular Respiratory Rate: Normal Appearance: Positive for: Well-Appearing, Non-Toxic, Comfortable Pain Distress: None Mental Status: Positive for: Alert and Oriented X 3 - Systems Exam Head: Present: Atraumatic, Normocephalic Pupils: Present: PERRL Extroacular Muscles: Present: EOMI Conjunctiva: Present: Normal Mouth: Present: Moist Mucous Membranes Neck: Present: Normal Range of Motion Respiratory/Chest: Present: Clear to Auscultation, Good Air Exchange. No: Respiratory Distress, Accessory Muscle Use Cardiovascular: Present: Regular Rate and Rhythm, Normal S1, S2. No: Murmurs Abdomen: No: Tenderness, Distention, Peritoneal Signs Back: Present: Pain with Leg Raise (Discomfort with bilateral straight leg raising ). No: CVA Tenderness, Paraspinal Tenderness Upper Extremity: Present: Normal Inspection. No: Cyanosis, Edema Lower Extremity: Present: Normal Inspection. No: Edema Neurological: Present: GCS=15, CN II-XII Intact, Speech Normal, Motor Func Grossly Intact, Normal Sensory Function Skin: Present: Warm, Dry, Normal Color. No: Rashes Psychiatric: Present: Alert, Oriented x 3, Normal Insight, Normal Concentration Medical Decision Making ED Course and Treatment: 02/05/18 20:38 Impression: 27 year old female presents to the Emergency department for chest discomfort, abdominal pain, and back pain. Plan: -- EKG -- Labs -- Chest X-ray -- Flexeril -- Toradol -- Reassess and disposition Prior Visits: Notes and results from previous visits were reviewed. Progress Notes: Reviewed EKG, NSR at [address] LAD. Non-specific ST/T wave changes 02/05/18 23:17 Case discussed with medical assembly graduation coach, who is aware and agrees with plan. 02/05/18 23:[address] Oshea, who is aware and agrees with plan. Accepts pt in to hospitalist service. Pt will go to remote telemetry observation for chest pain, lower back pain, and paresthesias. - Lab Interpretations Lab Results: 02/05/18 21:52 02/05/18 21:52 Lab Results 02/05/18 21:52: WBC 2.7 L* D, RBC 4.20, Hgb 12.1, Hct 36.6, MCV 87.1, MCH 28.8, MCHC 33.1, RDW 12.5, Plt Count 130, MPV 9.9, Gran % 51.6, Lymph % (Auto) 38.5 H , [place] % (Auto) 9.2 H, Eos % (Auto) 0.0 L, Baso % (Auto) 0.7, Gran # 1.46, Lymph # (Auto) 1.1 L, [place] # (Auto) 0.3, Eos # (Auto) 0.0, Baso # (Auto) 0.02 02/05/18 21:52: Sodium 143, Potassium 3.9, Chloride 104, Carbon Dioxide 28, Anion Gap 15, BUN 9, Creatinine 0.7, Est GFR ( Amer) > 60, Est GFR (Non- Af Amer) > 60, Random Glucose 89, Calcium 9.0, Total Bilirubin 1.2, AST 17, ALT 21, Alkaline Phosphatase 63, Lactate Dehydrogenase 332 L, Total Creatine Kinase 43, Troponin I < 0.01, Total Protein 6.8, Albumin 4.0, Globulin 2.8, Albumin/ Globulin Ratio 1.4 02/05/18 21:52: PT 11.7, INR 1.03, APTT 29.9 I have reviewed the lab results: Yes - RAD Interpretation Radiology Orders: 02/05/18 20:38 CHEST PORTABLE [RAD] Stat - EKG Interpretation Interpreted by ED Physician: Yes Type: 12 lead EKG - Medication Orders Current Medication Orders: Discontinued Medications Cyclobenzaprine HCl (Flexeril) 10 mg PO ONCE ONE Stop: 02/05/18 20:42 Last Admin: 02/05/18 22:27 Dose: 10 mg Ketorolac Tromethamine (Toradol) 30 mg IVP ONCE ONE Stop: 02/05/18 20:42 Last Admin: 02/05/18 22:27 Dose: 30 mg MAR Pain Assessment Document 02/05/18 22:27 OCS (Rec: 02/05/18 22:27 [id number] Pain Reassessment Is this a pain reassessment? No Sleep Is patient sleeping during reassessment? No Presence of Pain Presence of Pain Yes Pain Scale Used Pain Scale Used Numeric Location Upper or Lower Lower Pain Location Body Site Back Description Description Constant Aggravating Factors ADL's IVP Administration Document 02/05/18 22:27 OCS (Rec: 02/05/18 22:27 [id number]) Charges for Administration # of IVP Administrations 1 - Scribe Statement The provider has reviewed the documentation as recorded by the Scribe T All medical record entries made by the Scribe were at my direction and personally dictated by me. I have reviewed the chart and agree that the record accurately reflects my personal performance of the history, physical exam, medical decision making, and the department course for this patient. I have also personally directed, reviewed, and agree with the discharge instructions and disposition.rich Euceda. Disposition/Present on Arrival - Present on Arrival Any Indicators Present on Arrival: No History of DVT/PE: No History of Uncontrolled Diabetes: No Urinary Catheter: No History of Decub. Ulcer: No History Surgical Site Infection Following: None - Disposition Have Diagnosis and Disposition been Completed?: Yes Diagnosis: Chest pain, Lower back pain, Leukopenia Disposition: HOSPITALIZED Disposition Time: 23:49 Patient Plan: Observation Patient Problems: Current Active Problems Problem Status Onset Chest pain Acute Leukopenia Acute Lower back pain Acute Condition: STABLE
[2018-02-05 21:59] LABS: HEMOGLOBIN 12.1 g/dL (12.0-16.0); MEAN CELL VOLUME 87.1 fl (80.0-105.0); MEAN CORPUSCULAR HEMOGLOBIN 28.8 pg (25.0-35.0); MEAN CORPUSCULAR HGB CONC 33.1 g/dl (31.0-37.0); MEAN PLATELET VOLUME 9.9 fl (7.0-11.0); RBC 4.2 10^6/uL (3.5-6.1); RED CELL DISTRIBUTION WIDTH 12.5 % (11.5-14.5)
[2018-02-05 22:15] LABS: WHITE BLOOD COUNT 2.7 10^3/ul (4.5-11.0)
[2018-02-05 22:17] LABS: BASO # 0.02 K/mm3 (0.0-2.0); BASO % 0.7 % (0.0-3.0); GRAN # 1.46 (1.4-6.5); GRAN % 51.6 % (50.0-68.0); LYMPH # 1.1 (1.2-3.4); LYMPH % 38.5 % (22.0-35.0); MONO # 0.3 (0.1-0.6); MONO % 9.2 % (1.0-6.0)
[2018-02-05 22:18] LABS: INR 1.03 (0.93-1.08); PARTIAL THROMBOPLASTIN TIME 29.9 Seconds (25.1-36.5); PROTHROMBIN TIME 11.7 SECONDS (9.4-12.5)
[2018-02-05 22:27] LABS: ALB/GLOB RATIO 1.4 (1.1-1.8); ALT/SGPT 21 U/L (7-56); AST/SGOT 17 U/L (14-36); BLOOD UREA NITROGEN 9 mg/dL (7-21); GFR AFRICAN-AMERICAN > 60; GFR NON-AFRICAN AMERICAN > 60
[2018-02-05 22:29] LABS: TROPONIN I < 0.01 ng/mL
[2018-02-06] MEDS ORDERED: Vancomycin 1gm in NS 250ml 1 GM/250 ML BAG IVPB STA (00:37)
[2018-02-06] MEDS ORDERED: Aztreonam 1 Gm in NS 100mL 100 ML IVPB STA (00:39)
--- NOTE | 2018-02-06 02:48 | CP.PCM.HP ---
<Rajan Garay - Last Filed: 02/06/18 09:00> History of Present Illness - History of Present Illness History of Present Illness: CC: Mid-back and chest pain HPI: Ms. Michael is a 27 F with a PMHx of paroxysmal A-fib, hypothyroidism, and syncopal episodes who presents from the ED with chest pain and mid back pain. She describes her chest pain as a dull pressure, located substernally, rated 5/ 10, that occasionally shoots down her Left arm. Patient admits to dizziness and headache at these times, but no associated nausea or vomiting. Pt admits to her father and grandfather having heart disease and past MIs. Patient also admits to sharp, burning-like pain in her mid back centrally. Over the past few days, patient has experienced occasional numbness and tingling that radiates down both of her legs. Patient denies loss of control of urination , although has noticed a few days of diarrhea. A trial of ibuprofen and heating pad have not helped. She reports feeling like her legs come out from under her. Per patient, patient has herniated disc but never felt numbness previously. PMHx: Hypothyroidism, Paroxysmal Atrial fibrillation, syncopal episodes PSHx: D&C 2005, cholecesytectomy 2011, loop recorder placed in 11/22 Allergies: Sulfa and PCN Fam history: Father and paternal grandfather have heart disease Admits to occasional ETOH, denies tobacco and illicit drug use Meds: Synthroid 50 Family Hx: noncontributory Present on Admission - Present on Admission Any Indicators Present on Admission: No Review of Systems - Constitutional Constitutional: Headache, Weakness. absent: Fever Additional comments: LE weakness bilaterally - EENT Eyes: absent: Blurred Vision, Pain, Loss of Vision - Cardiovascular Cardiovascular: Chest Pain at Rest, Lightheadedness - Respiratory Respiratory: absent: Chest Congestion - Gastrointestinal Gastrointestinal: Change in Bowel Habits, Diarrhea, Loose Stools. absent: Change in Stool Character, Odynophagia - Genitourinary Genitourinary: absent: Difficulty Urinating, Hematuria, Urinary Urgency Past Patient History - Infectious Disease Hx of Infectious Diseases: None - Tetanus Immunizations Tetanus Immunization: Unknown - Past Social History Smoking Status: Never Smoked - CARDIAC Hx Cardiac Disorders: Yes Hx Atrial Fibrillation: Yes - PULMONARY Hx Respiratory Disorders: No - NEUROLOGICAL Hx Neurological Disorder: Yes Hx Syncope: Yes - HEENT Hx HEENT Problems: No - RENAL Hx Chronic Kidney Disease: No - ENDOCRINE/METABOLIC Hx Endocrine Disorders: Yes Hx Hypothyroidism: Yes - HEMATOLOGICAL/ONCOLOGICAL Hx Blood Disorders: No - INTEGUMENTARY Hx Dermatological Problems: No - MUSCULOSKELETAL/RHEUMATOLOGICAL Hx Musculoskeletal Disorders: No - GASTROINTESTINAL Hx Gastrointestinal Disorders: No - GENITOURINARY/GYNECOLOGICAL Hx Genitourinary Disorders: No - PSYCHIATRIC Hx Psychophysiologic Disorder: No Hx Substance Use: No - SURGICAL HISTORY Hx Cholecystectomy: Yes Hx Dilation and Curettage: Yes - ANESTHESIA Hx Anesthesia: No Hx Anesthesia Reactions: No Hx Malignant Hyperthermia: No Meds Allergies/Adverse Reactions: Allergies Allergy/AdvReac Type Severity Reaction Status Date / Time Penicillins Allergy RASH Verified 02/05/18 20:17 Sulfa (Sulfonamide Allergy RASH Verified 02/05/18 20:17 Antibiotics) Physical Exam - Constitutional Appears: In Acute Distress Additional comments: Discomfort - Head Exam Head Exam: ATRAUMATIC, NORMOCEPHALIC - Eye Exam Eye Exam: EOMI, PERRL - Respiratory Exam Respiratory Exam: Chest Wall Tenderness, Clear to Auscultation Bilateral, NORMAL BREATHING PATTERN. absent: Rales, Wheezes - Cardiovascular Exam Cardiovascular Exam: Irregular Rhythm, +S1, +S2 - GI/Abdominal Exam GI & Abdominal Exam: Guarding, Soft, Tenderness - Expanded Lower Extremities Exam Right Lower Leg Exam: normal inspection Neuro vacular tendon exam: absent: abnormal 2-point discrimination, decreased fine/light touch, motor deficit, sensory deficit Gait: not tested/not observed Left Neuro vacular tendon exam: absent: abnormal 2-point discrimination, motor deficit, pulse deficit, sensory deficit Gait: not tested/not observed - Back Exam Back exam: paraspinal tenderness, vertebral tenderness - Neurological Exam Neurological exam: Oriented x3, Reflexes Normal - Psychiatric Exam Psychiatric exam: Anxious Results - Vital Signs Recent Vital Signs: Last Vital Signs Temp 97.8 F 02/06/18 00:56 Pulse 74 02/06/18 01:30 Resp 18 02/06/18 01:30 BP 124/86 02/06/18 01:30 Pulse Ox 99 02/06/18 01:30 - Labs Result Diagrams: 02/06/18 04:30 02/06/18 04:30 Assessment & Plan - Assessment and Plan (Free Text) Assessment: Ms. Michael is a 27 F with a past medical history of hypothroidism, paroxysmal a fib and syncopal episodes who presented with severe back pain and chest pain. 1. Chest pain r/o ACS - placed on tele for continuous monitoring - trend troponins. negative x1 - loop reader in place for a fib, began 11/2017 - cardio consult placed- would appreciate recommendations 2. Back pain - consider possible spinal abscess in thoracolumbar area. CXR negative - isolated leukopenia (2.7) possibly due to infection - hx of disc herniation so thought to order MRI, but due to implanted loop recorder device ordered CT of thorax and lumbar - will follow up results - follow up HIV test for unknown source of infection - Neuro consult ordered - would appreciate recommendations for LE numbness - ID consult for empiric Abx - Vanc and Aztreonam - follow up urine and blood cultures and sensitivities 3. Hypokalemia - will replete with KCl 4. Hypothyroidism - continue synthroid home does of 50 mcg <Lashanda Oshea - Last Filed: 02/06/18 11:17> Results - Vital Signs Recent Vital Signs: Last Vital Signs Temp 97.8 F 02/06/18 08:38 Pulse 55 L 02/06/18 08:38 Resp 19 02/06/18 08:38 BP 112/75 02/06/18 08:38 Pulse Ox 100 02/06/18 08:38 - Labs Result Diagrams: 02/06/18 04:30 02/06/18 04:30 Labs: Laboratory Results - last 24 hr 02/06/18 02/06/18 02/06/18 04:30 04:30 04:30 WBC 2.7 L* RBC 4.25 Hgb 12.2 Hct 37.0 MCV 87.1 MCH 28.7 MCHC 33.0 RDW 12.6 Plt Count 137 MPV 10.2 Gran % 39.1 L Lymph % (Auto) 49.6 H [place] % (Auto) 9.4 H Eos % (Auto) 1.1 L Baso % (Auto) 0.8 Gran # 1.04 L Lymph # (Auto) 1.3 [place] # (Auto) 0.3 Eos # (Auto) 0.0 Baso # (Auto) 0.02 ESR 11 Sodium 143 Potassium 3.5 L Chloride 104 Carbon Dioxide 27 Anion Gap 15 BUN 9 Creatinine 0.7 Est GFR ( Amer) > 60 Est GFR (Non-Af Amer) > 60 Random Glucose 105 Calcium 8.9 Phosphorus Magnesium Total Bilirubin 1.1 AST 15 ALT 17 Alkaline Phosphatase 60 Troponin I < 0.01 Total Protein 6.5 Albumin 3.7 Globulin 2.8 Albumin/Globulin Ratio 1.3 02/06/18 09:10 WBC RBC Hgb Hct MCV MCH MCHC RDW Plt Count MPV Gran % Lymph % (Auto) [place] % (Auto) Eos % (Auto) Baso % (Auto) Gran # Lymph # (Auto) [place] # (Auto) Eos # (Auto) Baso # (Auto) ESR Sodium Potassium Chloride Carbon Dioxide Anion Gap BUN Creatinine Est GFR ( Amer) Est GFR (Non-Af Amer) Random Glucose Calcium Phosphorus 3.8 Magnesium 2.0 Total Bilirubin AST ALT Alkaline Phosphatase Troponin I < 0.01 Total Protein Albumin Globulin Albumin/Globulin Ratio Attending/Attestation - Attestation I have personally seen and examined this patient.: Yes I have fully participated in the care of the patient.: Yes I have reviewed all pertinent clinical information: Yes Notes (Text): 02/06/18 11:07 Patient seen with resident by bed side. Addendum: PMD and utilization management nurse from [facility] Pt has a Loop recorder placed by her utilization management nurse O/E Neck is supple,no JVD Examination of the back:tenderness is noted in the lower para thoracic and lumbar regions. 02/06/18 11:11
[2018-02-06 04:57] LABS: BASO # 0.02 K/mm3 (0.0-2.0); BASO % 0.8 % (0.0-3.0); EOS % 1.1 % (1.5-5.0); GRAN # 1.04 (1.4-6.5); GRAN % 39.1 % (50.0-68.0); HEMOGLOBIN 12.2 g/dL (12.0-16.0); LYMPH # 1.3 (1.2-3.4); LYMPH % 49.6 % (22.0-35.0); MEAN CELL VOLUME 87.1 fl (80.0-105.0); MEAN CORPUSCULAR HEMOGLOBIN 28.7 pg (25.0-35.0); MEAN PLATELET VOLUME 10.2 fl (7.0-11.0); MONO # 0.3 (0.1-0.6); MONO % 9.4 % (1.0-6.0); RBC 4.25 10^6/uL (3.5-6.1); RED CELL DISTRIBUTION WIDTH 12.6 % (11.5-14.5)
[2018-02-06 05:01] LABS: WHITE BLOOD COUNT 2.7 10^3/ul (4.5-11.0)
[2018-02-06 05:17] LABS: ALB/GLOB RATIO 1.3 (1.1-1.8); ALBUMIN 3.7 g/dL (3.0-4.8); ALT/SGPT 17 U/L (7-56); AST/SGOT 15 U/L (14-36); BLOOD UREA NITROGEN 9 mg/dL (7-21); CALCIUM 8.9 mg/dL (8.4-10.5); GFR AFRICAN-AMERICAN > 60; GFR NON-AFRICAN AMERICAN > 60
[2018-02-06 05:29] LABS: TROPONIN I < 0.01 ng/mL
[2018-02-06] MEDS ORDERED: Potassium Chloride 40 mEq/30 ml LIQ UD PO STA (07:41)
--- NOTE | 2018-02-06 08:17 | RAD ---
HISTORY: chest pain COMPARISON: 02/03/2018 FINDINGS: LUNGS: No active pulmonary disease. PLEURA: No significant pleural effusion identified, no pneumothorax apparent. CARDIOVASCULAR: Heart size appears top-normal. Small cardiac monitoring device noted over mid left hemithorax-unchanged OSSEOUS STRUCTURES: No significant abnormalities. VISUALIZED UPPER ABDOMEN: Normal. OTHER FINDINGS: None. IMPRESSION: No active disease. No interval pathology noted.
[2018-02-06] MEDS: Levothyroxine 50 MCG TAB PO SCH (08:47)
[2018-02-06] MEDS ORDERED: Potassium Chloride 20 mEq ER Tab PO ONE (09:30)
[2018-02-06 09:48] LABS: TROPONIN I < 0.01 ng/mL
--- NOTE | 2018-02-06 10:00 | CARD ---
APPROVED REPORT EKG Measurement Heart [id number] <Conclusion> Normal sinus rhythm LAD PRWP NSSTW changes
--- NOTE | 2018-02-06 10:11 | CT ---
EXAM: CT Thoracic Spine Without Intravenous Contrast CLINICAL HISTORY: 27 years old, female; Pain; Pain in thoracic spine; Additional info: Possible spinal abscess TECHNIQUE: Axial computed tomography images of the thoracic spine without intravenous contrast. All CT scans at this facility use at least one of these dose optimization techniques: automated exposure control; mA and/or kV adjustment per patient size (includes targeted exams where dose is matched to clinical indication); or iterative reconstruction. Coronal and sagittal reformatted images were created and reviewed. COMPARISON: US - CAROTID VERTEBRAL DUPLEX 2017-06-24 08:36 FINDINGS: Vertebrae: Unremarkable. No acute fracture. Discs/spinal canal/neural foramina: No acute findings. No spinal canal stenosis. Soft tissues: Unremarkable. Mediastinum: There is soft tissue fullness in the anterior mediastinum which likely represents residual thymic tissue. Gallbladder and bile ducts: The patient is status post cholecystectomy. Spleen: The spleen is prominent in size. IMPRESSION: No acute findings.
--- NOTE | 2018-02-06 10:13 | CT ---
EXAM: CT Lumbar Spine Without Intravenous Contrast CLINICAL HISTORY: 27 years old, female; Pain; Low back pain; Additional info: Possible spinal abscess TECHNIQUE: Axial computed tomography images of the lumbar spine without intravenous contrast. All CT scans at this facility use at least one of these dose optimization techniques: automated exposure control; mA and/or kV adjustment per patient size (includes targeted exams where dose is matched to clinical indication); or iterative reconstruction. Coronal and sagittal reformatted images were created and reviewed. COMPARISON: US - CAROTID VERTEBRAL DUPLEX 2017-06-24 08:36 FINDINGS: Vertebrae: See below. Discs/spinal canal/neural foramina: There is moderate spinal canal stenosis at L4/5 due to disc bulging and facet arthropathy. Full evaluation of the intervertebral discs and intraspinal contents is limited with CT imaging. Clinical findings will determine the need for further evaluation with MRI imaging. Soft tissues: Unremarkable. Gallbladder and bile ducts: The patient is status post cholecystectomy. Spleen: The spleen is prominent in size. IMPRESSION: There is moderate spinal canal stenosis at L4/5 due to disc bulging and facet arthropathy. Full evaluation of the intervertebral discs and intraspinal contents is limited with CT imaging. Clinical findings will determine the need for further evaluation with MRI imaging.
--- NOTE | 2018-02-06 10:17 | CARD ---
APPROVED REPORT EKG Measurement Heart [id number] <Conclusion> Normal sinus rhythm Left axis deviation PRWP NSSTW changes No change
--- NOTE | 2018-02-06 11:12 | CP.PCM.CON ---
History of Present Illness - History of Present Illness History of Present Illness: Neurology Consult Note for Dr. Naidu Consult reason: Bilateral lower extremity numbness, weakness, pain HPI: 27 year old female with past medical history of paroxysmal atrial fibrillation, hypothyroidism and syncopal episodes who presented to [facility] ED with chest discomfort, back pain and 3 day history of intermittent lower extremity numbness, pins and needles sensation and heaviness. Patient indicates symptoms are progressive since onset with pain origin beginning in her lower back with radiation down her both of her legs to her feet. She states her left leg has more weakness and pain than her right. Patient denies trauma, recent travel, history of sick contact, history of neurodegenerative disease, family history of neurological disorders, recent illness. Patient reports she has been told she has a bulging disc in her lower back but is unaware of its location. Prior to onset of symptoms patient states she was able to ambulate without assistance. At current time finds some difficulty with ambulation due to heavy feeling in her legs and blunted sensation. Patient denies ETOH and IVDA abuse. Patient complains of chest discomfort and shooting pain down her left arm. Denies shortness of breath, abdominal pain, nausea, vomiting, fever, chills. PMH: Hypothyroidism, Paroxysmal Atrial fibrillation, syncopal episodes PSH: D&C 2005, cholecesytectomy 2011, loop recorder placed in 11/22 FMH: Noncontributory FMH: HTN, HLD SOCHx: Tobacco: Denies, ETOH: Social, ID: Denies, Denies IVDA Meds: MAR reviewed Review of Systems - Review of Systems All systems: reviewed and no additional remarkable complaints except (as mentioned in HPI) Past Patient History - Infectious Disease Hx of Infectious Diseases: None - Tetanus Immunizations Tetanus Immunization: Unknown - Past Social History Smoking Status: Never Smoked - CARDIAC Hx Cardiac Disorders: Yes Hx Atrial Fibrillation: Yes - PULMONARY Hx Respiratory Disorders: No - NEUROLOGICAL Hx Neurological Disorder: Yes Hx Syncope: Yes - HEENT Hx HEENT Problems: No - RENAL Hx Chronic Kidney Disease: No - ENDOCRINE/METABOLIC Hx Endocrine Disorders: Yes Hx Hypothyroidism: Yes - HEMATOLOGICAL/ONCOLOGICAL Hx Blood Disorders: No - INTEGUMENTARY Hx Dermatological Problems: No - MUSCULOSKELETAL/RHEUMATOLOGICAL Hx Musculoskeletal Disorders: No - GASTROINTESTINAL Hx Gastrointestinal Disorders: No - GENITOURINARY/GYNECOLOGICAL Hx Genitourinary Disorders: No - PSYCHIATRIC Hx Psychophysiologic Disorder: No Hx Substance Use: No - SURGICAL HISTORY Hx Cholecystectomy: Yes Hx Dilation and Curettage: Yes - ANESTHESIA Hx Anesthesia: No Hx Anesthesia Reactions: No Hx Malignant Hyperthermia: No Meds Allergies/Adverse Reactions: Allergies Allergy/AdvReac Type Severity Reaction Status Date / Time Penicillins Allergy RASH Verified 02/05/18 20:17 Sulfa (Sulfonamide Allergy RASH Verified 02/05/18 20:17 Antibiotics) - Medications Medications: Current Medications Aspirin (Ecotrin) 81 mg PO DAILY [facility] Last Admin: 02/06/18 09:46 Dose: 81 mg Levothyroxine Sodium (Synthroid) 50 mcg PO ACB [facility] Last Admin: 02/06/18 08:47 Dose: 50 mcg Physical Exam - Constitutional Appears: Non-toxic, No Acute Distress - Head Exam Head Exam: ATRAUMATIC, NORMAL INSPECTION, NORMOCEPHALIC - Eye Exam Eye Exam: EOMI, PERRL - ENT Exam ENT Exam: Mucous Membranes Moist - Neck Exam Neck exam: Positive for: Full Rom - Respiratory Exam Respiratory Exam: Clear to Auscultation Bilateral, NORMAL BREATHING PATTERN. absent: Rhonchi, Wheezes - Cardiovascular Exam Cardiovascular Exam: REGULAR RHYTHM, +S1, +S2 - GI/Abdominal Exam GI & Abdominal Exam: Normal Bowel Sounds, Soft. absent: Tenderness - Extremities Exam Extremities exam: Negative for: calf tenderness, pedal edema - Neurological Exam Neurological exam: Alert, CN II-XII Intact, Oriented x3 Additional comments: Strength 4/5 LLE, 5/5 RLE, LUE, RUE Heel to [place] appropriate bilaterally Sensation appropriate to light touch reported as dull Straight leg test positive bilaterally, more apparent in LLE > RLE Shooting pain down leg and to large toe - Psychiatric Exam Psychiatric exam: Normal Affect, Normal Mood - Skin Skin Exam: Dry, Intact Results - Vital Signs Recent Vital Signs: Last Vital Signs Temp 97.8 F 02/06/18 08:38 Pulse 55 L 02/06/18 08:38 Resp 19 02/06/18 08:38 BP 112/75 02/06/18 08:38 Pulse Ox 100 02/06/18 08:38 - Labs Result Diagrams: 02/06/18 04:30 02/06/18 04:30 Labs: Laboratory Results - last 24 hr 02/06/18 02/06/18 02/06/18 04:30 04:30 04:30 WBC 2.7 L* RBC 4.25 Hgb 12.2 Hct 37.0 MCV 87.1 MCH 28.7 MCHC 33.0 RDW 12.6 Plt Count 137 MPV 10.2 Gran % 39.1 L Lymph % (Auto) 49.6 H [place] % (Auto) 9.4 H Eos % (Auto) 1.1 L Baso % (Auto) 0.8 Gran # 1.04 L Lymph # (Auto) 1.3 [place] # (Auto) 0.3 Eos # (Auto) 0.0 Baso # (Auto) 0.02 ESR 11 Sodium 143 Potassium 3.5 L Chloride 104 Carbon Dioxide 27 Anion Gap 15 BUN 9 Creatinine 0.7 Est GFR ( Amer) > 60 Est GFR (Non-Af Amer) > 60 Random Glucose 105 Calcium 8.9 Phosphorus Magnesium Total Bilirubin 1.1 AST 15 ALT 17 Alkaline Phosphatase 60 Troponin I < 0.01 Total Protein 6.5 Albumin 3.7 Globulin 2.8 Albumin/Globulin Ratio 1.3 02/06/18 09:10 WBC RBC Hgb Hct MCV MCH MCHC RDW Plt Count MPV Gran % Lymph % (Auto) [place] % (Auto) Eos % (Auto) Baso % (Auto) Gran # Lymph # (Auto) [place] # (Auto) Eos # (Auto) Baso # (Auto) ESR Sodium Potassium Chloride Carbon Dioxide Anion Gap BUN Creatinine Est GFR ( Amer) Est GFR (Non-Af Amer) Random Glucose Calcium Phosphorus 3.8 Magnesium 2.0 Total Bilirubin AST ALT Alkaline Phosphatase Troponin I < 0.01 Total Protein Albumin Globulin Albumin/Globulin Ratio Assessment & Plan - Assessment and Plan (Free Text) Assessment: 27 year old female with past medical history of paroxysmal atrial fibrillation, hypothyroidism and syncopal episodes who presented to [facility] ED with chest discomfort, back pain and 3 day history of intermittent lower extremity numbness , pins and needles sensation and heaviness. Patient evaluated with thoracic and lumbar CT showing disc herniation and spinal canal stenosis at L4/L5 level. Plan: Lower extremity parasthesia/numbness bilaterally - Hx of paroxysmal atrial fibrillation - Lumbar CT showing spinal canal stenosis at L4/L5 due to disc bulging and facet arthropathy - Brain MRI for possible stroke - Lumbar MRI for assessment of spinal stenosis and herniated disc - Echocardiogram - Recommend outpatient PT if back pain persists - Further recommendations per Dr. Evangelista Merchant PGY-1 - Date & Time Date: 02/06/18 Time: 09:30
--- NOTE | 2018-02-06 16:27 | MRI ---
PROCEDURE: MRI BRAIN WITHOUT CONTRAST HISTORY: eval, lower extremity numbness COMPARISON: None. TECHNIQUE: Multiplanar, multisequence MR images of the brain were obtained without intravenous contrast enhancement. FINDINGS: HEMORRHAGE: None DWI: No evidence of an acute or early subacute infarction. BRAIN PARENCHYMA: Ya-white matter differentiation is preserved. There is no mass, mass effect or abnormal extra-axial fluid collection. There is no territorial infarction. The cerebellar tonsils are low-lying, otherwise the midline sagittal structures are normal. VENTRICLES: The ventricles are normal in size, shape and configuration. CRANIUM: There is normal bone marrow signal pattern. ORBITS: Grossly unremarkable. PARANASAL SINUSES/MASTOIDS: Predominantly clear. VASCULAR SYSTEM: There are normal signal voids in the larger intracranial arteries. OTHER FINDINGS: None. IMPRESSION: No acute intracranial abnormality. Low-lying cerebellar tonsils.
--- NOTE | 2018-02-06 16:39 | MRI ---
PROCEDURE: MR LUMBAR SPINE WITHOUT CONTRAST HISTORY: eval, lower ext numbness COMPARISON: CT lumbar spine without contrast from 02/06/2018 TECHNIQUE: Multiecho multiplanar sequences were performed through the lumbar spine without the use of intravenous contrast. FINDINGS: There is normal alignment of the lumbar vertebral bodies. There is normal lumbar lordosis. There is no acute fracture, spondylolysis or spondylolisthesis. Bone marrow signal is within normal limits. 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 The conus medullaris terminates at a normal level. The nerve roots of cauda equina are normal. The paraspinous soft tissues are normal. Imaged portion of the retroperitoneum is within normal limits. T12-L1: No disc herniation, spinal canal stenosis or neural foraminal narrowing. L1-2: No disc herniation, spinal canal stenosis or neural foraminal narrowing. L2-3: No disc herniation, spinal canal stenosis or neural foraminal narrowing. L3-4: No disc herniation, spinal canal stenosis or neural foraminal narrowing. L4-5: Diffuse posterior disc bulge with superimposed right foraminal and far lateral disc protrusions which abut the exiting right L4 nerve root. Mild ligamentum flavum infolding contributes to mild spinal canal stenosis. Mild bilateral facet arthropathy contribute to moderate right and mild left neural foraminal narrowing. L5-S1: Diffuse posterior disc bulge without spinal canal stenosis or neural foraminal narrowing. OTHER FINDINGS: None. IMPRESSION: Mild degenerative disc disease in the lower lumbar spine superimposed on a congenitally narrow lower lumbar spinal canal, worse at L4-5 with a right foraminal and far lateral disc protrusion which abuts the exiting right L4 nerve root, also noted is mild spinal canal stenosis, moderate right and mild left neural foraminal narrowing.
--- NOTE | 2018-02-07 06:46 | CON ---
CONSULT SERVICE: Cardiology. REASON FOR THE CONSULTATION: Cardiac evaluation, status post loop recorder implantation for paroxysmal atrial fibrillation, admitted with back pain. BRIEF CLINICAL HISTORY: This is a 27-year-old female with past medical history of obesity, hypothyroidism, paroxysmal atrial fibrillation, not on anticoagulation, status post loop recorder by Dr. Interiano, being followed by Dr. Interiano, came in with complaint of back pain. Denies any chest pain, denies any shortness of breath, denies any palpitation, denies any dizziness, denies any loss of consciousness. Although the patient complained of sharp burning pain at her back with numbness in both feet. PAST MEDICAL HISTORY: Significant for hypothyroidism, paroxysmal atrial fibrillation, status post loop recorder. PAST SURGICAL HISTORY: Significant for cholecystectomy in 2005, status post D and C, status post loop recorder in 11/2017. ALLERGIES: SULFA AND PENICILLIN. FAMILY HISTORY: Significant for father and grandfather had heart problem. SOCIAL HISTORY: Denies any history of alcohol abuse, denies any history of tobacco abuse, denies any history of substance abuse. CURRENT MEDICATIONS: The patient is taking Synthroid 50 mcg daily. REVIEW OF SYSTEMS: As per HPI. PHYSICAL EXAMINATION: GENERAL: Height of the patient is 5 feet 4 inch. Weight of the patient 215 pounds. Body mass index 40.6 kg per meter square. VITAL SIGNS: Heart rate 65, blood pressure 112/75. HEENT: PERRLA. Extraocular muscles intact. NECK: Supple. No carotid bruits or thyromegaly. CHEST: Clear to auscultation. HEART: S1 and S2, regular. ABDOMEN: Soft. EXTREMITIES: Clubbing and cyanosis negative. EKG shows normal sinus, left axis deviation, no acute ST-T wave changes noted. LABORATORY DATA: Blood workup; WBC 2.7, hemoglobin 12.2, hematocrit 37, and platelet count 137. Chemistry shows sodium 143, potassium 3.5, chloride 104, carbon dioxide 27, anion gap of 15. BUN 9, creatinine 0.7. Troponin 0.01 x2 negative. IMPRESSION: Atypical chest pain, history of paroxysmal atrial fibrillation, status post loop recorder implantation, history of back pain, history of hypothyroidism, and history of obesity. So far, no evidence of acute myocardial infarction. RECOMMENDATIONS: We will discontinue telemetry. Continue Neurology evaluation. Whether the patient is okay, the patient can be discharged from Cardiology point of view. Follow up with Dr. Interiano. The patient has an appointment next week with the offline editor. We will follow with you. Upon discharge, the patient to be followed up with Dr. Interiano. We will supplement potassium. As mentioned, the patient's PMD is Dr. Interiano and the patient had in last month after a loop recorder followup and the next visit followup, atypical chest pain, so far no evidence of acute [place], but going to be followed up with Dr. Interiano, her PMD. We will discontinue Telemetry. The patient is okay to be discharged from Cardiology point of view. Explained to the patient he needs workup by her PMD. Thank you for providing us the opportunity in taking care of patient, Leatha Michael. Robin Dee MD
[2018-02-07 06:52] LABS: BASO # 0.01 K/mm3 (0.0-2.0); BASO % 0.3 % (0.0-3.0); EOS # 0.1 (0.0-0.7); EOS % 1.3 % (1.5-5.0); GRAN # 1.7 (1.4-6.5); GRAN % 45.7 % (50.0-68.0); HEMOGLOBIN 13.8 g/dL (12.0-16.0); LYMPH # 1.5 (1.2-3.4); LYMPH % 40.9 % (22.0-35.0); MEAN CELL VOLUME 86.8 fl (80.0-105.0); MEAN CORPUSCULAR HEMOGLOBIN 28.9 pg (25.0-35.0); MEAN CORPUSCULAR HGB CONC 33.3 g/dl (31.0-37.0); MEAN PLATELET VOLUME 10.7 fl (7.0-11.0); MONO # 0.4 (0.1-0.6); MONO % 11.8 % (1.0-6.0); RBC 4.77 10^6/uL (3.5-6.1); RED CELL DISTRIBUTION WIDTH 12.5 % (11.5-14.5); WHITE BLOOD COUNT 3.7 10^3/ul (4.5-11.0)
--- NOTE | 2018-02-07 07:29 | CON ---
DATE: 02/06/2018 LOCATION: Patient is in bed, was seen earlier today in 365, bed 2. CHIEF COMPLAINT: Back pain times several days. HISTORY OF PRESENT ILLNESS: This is a 27-year-old female with morbid obesity with BMI of 41 with hypothyroidism, atrial fibrillation, syncope, who has had D and C in the past, cholecystectomy, and loop recorder placed in November 2017, WHO RELATES THAT PENICILLIN DEVELOPS A RASH, SULFA ALLERGY, was admitted with back pain. She states still she has back pain, however, it is a significantly worse last 2 days. She denies any fevers or any chills, chest pain at this time. She does not have any abdominal pain at this time and no headaches or blurred vision. No rash or joint pain. No dysuria or frequency. PAST MEDICAL HISTORY: Significant for hypothyroidism, atrial fibrillation, syncope, morbid obesity, BMI of 41. PAST SURGICAL HISTORY: Significant for cholecystectomy, D and C, and loop recorder placement in November of 2017. MEDICATIONS AT HOME: Include Synthroid. SOCIAL HISTORY: Patient lives with her 2 children at home. No travel history. PHYSICAL EXAMINATION: VITAL SIGNS: Patient's temperature is 98, blood pressure 112/70, respiratory rate 19, heart rate of 59. HEENT: Unremarkable. NECK: Supple. LUNGS: Have decreased breath sounds. HEART: Normal S1 and S2. ABDOMEN: Soft, nontender. LABORATORY DATA: White count of 2.7, hemoglobin of 12, platelet 137. Coagulation reveals BUN of 9, creatinine of 0.7. C-reactive protein is 10.4. Sed rate is 11. Patient had an MRI of the spine, which shows disk bulging and MRI of the brain, which is essentially unremarkable. Chest x-ray, which is negative. CAT scan of the thoracic spine, which shows disk disease and spinal stenosis. Emergency room chart is reviewed. Microbiology is pending. HIV is pending. ASSESSMENT AND PLAN: This is a 27-year-old female with hypothyroidism, atrial fibrillation, syncope, morbid obesity, body mass index of 41. #1 is spinal stenosis with L4-L5 disk bulging. No indications for antibiotics at this point. We will check on the cultures and also check on the human immunodeficiency virus. We will follow closely with you. She would benefit from physical therapy and nutritional education. Delmer Jameson MD
[2018-02-07 07:42] LABS: ALB/GLOB RATIO 1.4 (1.1-1.8); ALBUMIN 4.2 g/dL (3.0-4.8); ALT/SGPT 18 U/L (7-56); AST/SGOT 18 U/L (14-36); BLOOD UREA NITROGEN 10 mg/dL (7-21); CALCIUM 9.4 mg/dL (8.4-10.5); GFR AFRICAN-AMERICAN > 60; GFR NON-AFRICAN AMERICAN > 60
[2018-02-07] MEDS: Levothyroxine 50 MCG TAB PO SCH (08:24)
[2018-02-07 09:06] VITALS: BP 105/67; PULSE 77; RESP 18; TEMP 97.9; O2SAT 95
--- NOTE | 2018-02-07 12:55 | CP.PCM.DIS ---
<Miki Cabrera - Last Filed: 02/07/18 12:56> Provider - Provider Date of Admission: 02/05/18 23:46 Attending physician: Marcella Reed MD Primary care physician: Arnulfo Duncan MD Consults: Cardio: Dr. Casiano Neuro: Dr. Naidu Time Spent in preparation of Discharge (in minutes): 45 Diagnosis - Discharge Diagnosis (1) Chest pain Status: Resolved Priority: Low (2) Leukopenia Status: Resolved Priority: Low (3) Lower back pain Status: Resolved Priority: Low (4) Sciatica Status: Resolved Priority: Low Hospital Course - Lab Results Lab Results: Micro Results 02/06/18 03:30 Urine,Clean Catch Urine Culture - Final <10,000 CFU/ML. MULTIPLE SPECIES. PROBABLE CONTAMINATION. 02/06/18 01:15 Blood Blood Culture - Preliminary NO GROWTH AFTER 24 HOURS 02/06/18 00:45 Blood Blood Culture - Preliminary NO GROWTH AFTER 24 HOURS Most Recent Lab Values WBC 3.7 10^3/ul (4.5-11.0) L D 02/07/18 06:00 RBC 4.77 10^6/uL (3.5-6.1) 02/07/18 06:00 Hgb 13.8 g/dL (12.0-16.0) 02/07/18 06:00 Hct 41.4 % (36.0-48.0) 02/07/18 06:00 MCV 86.8 fl (80.0-105.0) 02/07/18 06:00 MCH 28.9 pg (25.0-35.0) 02/07/18 06:00 MCHC 33.3 g/dl (31.0-37.0) 02/07/18 06:00 RDW 12.5 % (11.5-14.5) 02/07/18 06:00 Plt Count 156 10^3/uL (120.0-450.0) 02/07/18 06:00 MPV 10.7 fl (7.0-11.0) 02/07/18 06:00 Gran % 45.7 % (50.0-68.0) L 02/07/18 06:00 Lymph % (Auto) 40.9 % (22.0-35.0) H 02/07/18 06:00 [place] % (Auto) 11.8 % (1.0-6.0) H 02/07/18 06:00 Eos % (Auto) 1.3 % (1.5-5.0) L 02/07/18 06:00 Baso % (Auto) 0.3 % (0.0-3.0) 02/07/18 06:00 Gran # 1.70 (1.4-6.5) 02/07/18 06:00 Lymph # (Auto) 1.5 (1.2-3.4) 02/07/18 06:00 [place] # (Auto) 0.4 (0.1-0.6) 02/07/18 06:00 Eos # (Auto) 0.1 (0.0-0.7) 02/07/18 06:00 Baso # (Auto) 0.01 K/mm3 (0.0-2.0) 02/07/18 06:00 ESR 11 mm/hr (0.0-20.0) 02/06/18 04:30 PT 11.7 SECONDS (9.4-12.5) 02/05/18 21:52 INR 1.03 (0.93-1.08) 02/05/18 21:52 APTT 29.9 Seconds (25.1-36.5) 02/05/18 21:52 Sodium 141 mmol/L (132-148) 02/07/18 06:00 Potassium 4.4 mmol/L (3.6-5.0) 02/07/18 06:00 Chloride 103 mmol/L (98-107) 02/07/18 06:00 Carbon Dioxide 28 mmol/L (21-33) 02/07/18 06:00 Anion Gap 15 (10-20) 02/07/18 06:00 BUN 10 mg/dL (7-21) 02/07/18 06:00 Creatinine 0.8 mg/dl (0.7-1.2) 02/07/18 06:00 Est GFR ( Amer) > 60 02/07/18 06:00 Est GFR (Non-Af Amer) > 60 02/07/18 06:00 Random Glucose 91 mg/dL (70-110) 02/07/18 06:00 Calcium 9.4 mg/dL (8.4-10.5) 02/07/18 06:00 Phosphorus 3.9 mg/dL (2.5-4.5) 02/07/18 06:00 Magnesium 2.1 mg/dL (1.7-2.2) 02/07/18 06:00 Total Bilirubin 1.5 mg/dL (0.2-1.3) H 02/07/18 06:00 AST 18 U/L (14-36) 02/07/18 06:00 ALT 18 U/L (7-56) 02/07/18 06:00 Alkaline Phosphatase 67 U/L (38-126) 02/07/18 06:00 Lactate Dehydrogenase 332 U/L (333-699) L 02/05/18 21:52 Total Creatine Kinase 43 U/L (35-230) 02/05/18 21:52 Troponin I < 0.01 ng/mL 02/06/18 09:10 C-Reactive Protein 10.40 mg/L (0.0-9.9) H 02/06/18 04:30 Total Protein 7.2 g/dL (5.8-8.3) 02/07/18 06:00 Albumin 4.2 g/dL (3.0-4.8) 02/07/18 06:00 Globulin 3.1 gm/dL 02/07/18 06:00 Albumin/Globulin Ratio 1.4 (1.1-1.8) 02/07/18 06:00 - Hospital Course Hospital Course: HPI Day of Admission Ms. Michael is a 27 F with a PMHx of paroxysmal A-fib, hypothyroidism, and syncopal episodes who presents from the ED with chest pain and mid back pain. She describes her chest pain as a dull pressure, located substernally, rated 5/ 10, that occasionally shoots down her Left arm. Patient admits to dizziness and headache at these times, but no associated nausea or vomiting. Pt admits to her father and grandfather having heart disease and past MIs. Patient also admits to sharp, burning-like pain in her mid back centrally. Over the past few days, patient has experienced occasional numbness and tingling that radiates down both of her legs. Patient denies loss of control of urination , although has noticed a few days of diarrhea. A trial of ibuprofen and heating pad have not helped. She reports feeling like her legs come out from under her. Per patient, patient has herniated disc but never felt numbness previously. Hospital Course: Patient's chest pain resolved throughout her course. She was seen by cardiology , who upon seeing her negative tropes, ruled out ACS. Patient is to follow up with her own magician/illusionist outpatient. RE: her back pain, neurology saw her and advised that she follow up outpatient for back pain. Patient takes motrin at home and was well controlled on Tylenol while in the hospital. Dizziness has resolved. Patient was hypokalemic upon admission and day after admission; electrolytes were repleted and mg/phos were checked which were normal. Assessment and Plan day of discharge: Ms. Michael is a 27 F with a past medical history of hypothroidism, paroxysmal a fib and syncopal episodes who presented with severe back pain and chest pain. 1. Chest pain r/o ACS - placed on tele for continuous monitoring - trend troponins. negative x1 - loop reader in place for a fib, began 11/2017 - cardio consult placed- would appreciate recommendations 2. Back pain - consider possible spinal abscess in thoracolumbar area. CXR negative - isolated leukopenia (2.7) possibly due to infection - hx of disc herniation so thought to order MRI, but due to implanted loop recorder device ordered CT of thorax and lumbar - will follow up results - follow up HIV test for unknown source of infection - Neuro consult ordered - would appreciate recommendations for LE numbness - ID consult for empiric Abx - Vanc and Aztreonam - follow up urine and blood cultures and sensitivities 3. Hypokalemia - will replete with KCl 4. Hypothyroidism - continue synthroid home does of 50 mcg Discharge Exam - Head Exam Head Exam: ATRAUMATIC, NORMAL INSPECTION, NORMOCEPHALIC - Eye Exam Eye Exam: EOMI, Normal appearance, PERRL Pupil Exam: NORMAL ACCOMODATION, PERRL - Respiratory Exam Respiratory Exam: Clear to PA & Lateral, NORMAL BREATHING PATTERN, UNREMARKABLE - GI/Abdominal Exam GI & Abdominal Exam: Normal Bowel Sounds, Unremarkable - Neurological Exam Neurological exam: Alert, CN II-XII Intact, Normal Gait, Oriented x3, Reflexes Normal - Psychiatric Exam Psychiatric exam: Normal Affect, Normal Mood - Skin Skin Exam: Dry, Intact, Normal Color, Warm Discharge Plan - Follow Up Plan Condition: STABLE Disposition: HOME/ ROUTINE Instructions: Low Back Pain (DC), Chest Pain (DC) Additional Instructions: please make lifestyle and diet modifications as discussed please follow up with dr. sumner please return to ed if your symptoms persist or worsen. Referrals: Arnulfo Duncan MD [Primary Care Provider] - Follow up with primary <Marcella Reed - Last Filed: 02/07/18 13:30> Provider - Provider Date of Admission: 02/05/18 23:46 Attending physician: Marcella Reed MD Primary care physician: Arnulfo Duncan MD Hospital Course - Lab Results Lab Results: Micro Results 02/06/18 03:30 Urine,Clean Catch Urine Culture - Final <10,000 CFU/ML. MULTIPLE SPECIES. PROBABLE CONTAMINATION. 02/06/18 01:15 Blood Blood Culture - Preliminary NO GROWTH AFTER 24 HOURS 02/06/18 00:45 Blood Blood Culture - Preliminary NO GROWTH AFTER 24 HOURS Most Recent Lab Values WBC 3.7 10^3/ul (4.5-11.0) L D 02/07/18 06:00 RBC 4.77 10^6/uL (3.5-6.1) 02/07/18 06:00 Hgb 13.8 g/dL (12.0-16.0) 02/07/18 06:00 Hct 41.4 % (36.0-48.0) 02/07/18 06:00 MCV 86.8 fl (80.0-105.0) 02/07/18 06:00 MCH 28.9 pg (25.0-35.0) 02/07/18 06:00 MCHC 33.3 g/dl (31.0-37.0) 02/07/18 06:00 RDW 12.5 % (11.5-14.5) 02/07/18 06:00 Plt Count 156 10^3/uL (120.0-450.0) 02/07/18 06:00 MPV 10.7 fl (7.0-11.0) 02/07/18 06:00 Gran % 45.7 % (50.0-68.0) L 02/07/18 06:00 Lymph % (Auto) 40.9 % (22.0-35.0) H 02/07/18 06:00 [place] % (Auto) 11.8 % (1.0-6.0) H 02/07/18 06:00 Eos % (Auto) 1.3 % (1.5-5.0) L 02/07/18 06:00 Baso % (Auto) 0.3 % (0.0-3.0) 02/07/18 06:00 Gran # 1.70 (1.4-6.5) 02/07/18 06:00 Lymph # (Auto) 1.5 (1.2-3.4) 02/07/18 06:00 [place] # (Auto) 0.4 (0.1-0.6) 02/07/18 06:00 Eos # (Auto) 0.1 (0.0-0.7) 02/07/18 06:00 Baso # (Auto) 0.01 K/mm3 (0.0-2.0) 02/07/18 06:00 ESR 11 mm/hr (0.0-20.0) 02/06/18 04:30 PT 11.7 SECONDS (9.4-12.5) 02/05/18 21:52 INR 1.03 (0.93-1.08) 02/05/18 21:52 APTT 29.9 Seconds (25.1-36.5) 02/05/18 21:52 Sodium 141 mmol/L (132-148) 02/07/18 06:00 Potassium 4.4 mmol/L (3.6-5.0) 02/07/18 06:00 Chloride 103 mmol/L (98-107) 02/07/18 06:00 Carbon Dioxide 28 mmol/L (21-33) 02/07/18 06:00 Anion Gap 15 (10-20) 02/07/18 06:00 BUN 10 mg/dL (7-21) 02/07/18 06:00 Creatinine 0.8 mg/dl (0.7-1.2) 02/07/18 06:00 Est GFR ( Amer) > 60 02/07/18 06:00 Est GFR (Non-Af Amer) > 60 02/07/18 06:00 Random Glucose 91 mg/dL (70-110) 02/07/18 06:00 Calcium 9.4 mg/dL (8.4-10.5) 02/07/18 06:00 Phosphorus 3.9 mg/dL (2.5-4.5) 02/07/18 06:00 Magnesium 2.1 mg/dL (1.7-2.2) 02/07/18 06:00 Total Bilirubin 1.5 mg/dL (0.2-1.3) H 02/07/18 06:00 AST 18 U/L (14-36) 02/07/18 06:00 ALT 18 U/L (7-56) 02/07/18 06:00 Alkaline Phosphatase 67 U/L (38-126) 02/07/18 06:00 Lactate Dehydrogenase 332 U/L (333-699) L 02/05/18 21:52 Total Creatine Kinase 43 U/L (35-230) 02/05/18 21:52 Troponin I < 0.01 ng/mL 02/06/18 09:10 C-Reactive Protein 10.40 mg/L (0.0-9.9) H 02/06/18 04:30 Total Protein 7.2 g/dL (5.8-8.3) 02/07/18 06:00 Albumin 4.2 g/dL (3.0-4.8) 02/07/18 06:00 Globulin 3.1 gm/dL 02/07/18 06:00 Albumin/Globulin Ratio 1.4 (1.1-1.8) 02/07/18 06:00 Attending/Attestation - Attestation I have personally seen and examined this patient.: Yes I have fully participated in the care of the patient.: Yes I have reviewed all pertinent clinical information, including history, physical exam and plan: Yes Notes (Text): 02/07/18 13:23 27 year old female with past medical history of paroxysmal afib, hypothyroidism , obesity and chronic back pain who presented with complaint of reproducible chest pain and back pain. Serial cardiac enyzmes were negative and ACS was ruled out. She was seen by cardiology and neurology. She had CT and MRI spine which showed moderate spine canal stenosis L4-L5 with disc bulging and facet arthopathy. She was seen by neurology who recommended outpatient PT. Patient's symptoms improved. She is ambulating without complaints. She is discharged home to follow up with pmd. Outpatient PT. Counselled on diet, exercise and lifestyle modifications. Marcella Reed MD Hospitalist.
--- NOTE | 2018-02-07 13:15 | PN ---
DATE: 02/07/2018 SUBJECTIVE: The patient is seen earlier this morning in room 365, bed 2. The patient has no fevers, no chills. She still has back pain, she states. No abdominal pain, diarrhea or constipation. PHYSICAL EXAMINATION: VITAL SIGNS: On exam, temperature is 98, blood pressure is 105/60, respiratory rate of 19, heart rate of 73. HEENT: Examination of HEENT is unremarkable. NECK: Supple. LUNGS: Have decreased breath sounds. HEART: Normal S1, S2. ABDOMEN: Soft, nontender. LABORATORY DATA: Laboratory examination reveals a white count of 3.7, hemoglobin of 13. Differential is noted. Coagulation is noted. The chemistries are reviewed. The patient's C-reactive protein is 10.4. Sed rate is only 11. Microbiology reveals blood cultures are no growth. The imaging is noted. ASSESSMENT AND PLAN: A 27-year-old female with morbid obesity with body mass index of 41 and atrial fibrillation and syncope and hypothyroidism, who has had a history of dilatation and curettage, cholecystectomy, has a loop recorder placed in 11/2017, who states that she is allergic to penicillin, develops a rash and sulfa allergy who was admitted now with a back pain with spinal stenosis and L4-L5 disk bulging. No evidence of infection. No diskitis is evident on MRI. No vertebral osteomyelitis is evident. Currently, the patient is off of antibiotics. We will check on the patient's human immunodeficiency virus status, is pending and echocardiogram is also pending. We will follow with you. Delmer Jameson MD
--- NOTE | 2018-02-07 13:45 | PN ---
DATE: 02/07/2018 LOCATION: Patient in room 365, bed 2. REASON FOR CONSULTATION: Paroxysmal atrial fibrillation, history of hypothyroidism, back pain. SUBJECTIVE: Patient still has back pain. Denies any chest pain, shortness of breath or palpitations. PHYSICAL EXAMINATION: VITAL SIGNS: Blood pressure 105/67, respirations 18, pulse 77, temperature 97.9. HEENT: Head is normocephalic. Eyes, pupils normal. Conjunctivae normal. Nose and throat normal. NECK: JVP is low. Carotid equal. THORAX: AP diameter normal. LUNGS: Clear. CARDIOVASCULAR: S1 and S2. BACK: Patient has in the mid of the back, spinal area tenderness. ABDOMEN: Soft. No tenderness. No organomegaly. EXTREMITIES: No edema. LABORATORY DATA: WBC 3.7, hemoglobin 13.8, hematocrit 41.4, platelets 156. Sodium 141, potassium 4.4, BUN 10, creatinine 0.8. Total bilirubin 1.5, earlier bilirubin was 1.1. AST, ALT normal. Troponin x3 negative. Total protein 7.2, albumin 4.2. DIAGNOSES: Back pain musculoskeletal, paroxysmal atrial fibrillation, history of hypothyroidism, obesity, status post loop recorder in 11/2017. RECOMMENDATIONS AND PLAN: If patient is staying in sinus rhythm, had loop recorder inserted by Dr. Interiano. Patient follows with him and she has appointment next week also with him. Right now, patient is in sinus rhythm. Patient already has cardiac workup with Dr. Interiano. So, we will continue aspirin 81 mg daily, potassium has been supplemented, levothyroxine 50 mcg p.o. daily. Patient also on aztreonam, 1 g stat was given yesterday by Emergency Room. Apparently, cardiac status is stable. Patient does not need any cardiac workup and she followed with Cardiology, she has appointment for next week. Robin Casiano MD
== END 2018-02-07 14:56 | disposition home or self-care (01) ==
LOC: ED 19:58 → ERH 23:46 → 3RNO 02-06 02:16
PROVIDERS: ADMIT Internal Medicine; ATTEND Internal Medicine
DX: R07.89 Other chest pain (principal); E87.6 Hypokalemia; I48.0 Paroxysmal atrial fibrillation; M48.061 Spinal stenosis, lumbar region without neurogenic claudication; M51.24 Other intervertebral disc displacement, thoracic region; M51.26 Other intervertebral disc displacement, lumbar region; E03.9 Hypothyroidism, unspecified; M54.30 Sciatica, unspecified side; D72.819 Decreased white blood cell count, unspecified; E66.01 Morbid (severe) obesity due to excess calories; Z68.41 Body mass index [BMI] 40.0-44.9, adult; Z88.0 Allergy status to penicillin; Z88.2 Allergy status to sulfonamides; Z79.82 Long term (current) use of aspirin; Z82.49 Family history of ischemic heart disease and other diseases of the circulatory system
CPT/HCPCS: 36415; 70551; 71045; 72128; 72131; 72148; 80053; 82550; 83615; 83735; 84100; 84484; 85025; 85610; 85651; 85730; 86140; 87040; 87086; 87389; 93005; 96365; 96368; 96375; 99284; G0378; J1885; J3480

== ENCOUNTER 2018-06-10 22:38 | Observation (INO) | payer MEDICAID, OTHER ==
--- NOTE | 2018-06-10 23:03 | ED PDOC ---
Arrival/HPI - General Chief Complaint: Chest Pain Time Seen by Provider: 06/10/18 22:42 Historian: Patient - History of Present Illness Narrative History of Present Illness (Text): 06/10/18 22:58 Leatha Michael is a 27 year old female, whose past medical history includes paroxysmal atrial fibirillation, hypothyroidism, syncope, and Loop recorder placement in November 2017, who presents to the Emergency department complaining of chest pain. Patient states she has been experiencing intermittent left-sided chest pain radiating to her left arm since 12:00 today. Patient also reports she had a syncopal episode while leaving [employer] at 15:30 today. Patient states she was unconscious for a couple of minutes and was caught by her lead retail sales associate before hitting the ground. Patient states reports feeling generally weak with a mild headache since the incident. Patient states she recently underwent an echocardiogram and stress test. Patient denies any fever, chills, shortness of breath, nausea, vomiting, diarrhea, urinary symptoms, back pain, neck pain, dizziness, or any other complaints. Symptom Onset: Gradual Symptom Course: Unchanged, Intermittent Activities at Onset: Light Context: Home Past Medical History - Provider Review Nursing Documentation Reviewed: Yes - Infectious Disease Hx of Infectious Diseases: None - Tetanus Immunization Tetanus Immunization: Unknown - Reproductive Menopause: No - Cardiac Hx Cardiac Disorders: Yes Hx Atrial Fibrillation: Yes - Pulmonary Hx Respiratory Disorders: No - Neurological Hx Neurological Disorder: Yes Hx Syncope: Yes - HEENT Hx HEENT Disorder: No - Renal Hx Renal Disorder: No - Endocrine/Metabolic Hx Endocrine Disorders: Yes Hx Hypothyroidism: Yes - Hematological/Oncological Hx Blood Disorders: No - Integumentary Hx Dermatological Disorder: No - Musculoskeletal/Rheumatological Hx Musculoskeletal Disorders: No - Gastrointestinal Hx Gastrointestinal Disorders: No - Genitourinary/Gynecological Hx Genitourinary Disorders: No - Psychiatric Hx Psychophysiologic Disorder: No Hx Substance Use: No - Surgical History Hx Cholecystectomy: Yes Hx Dilation and Curettage: Yes - Anesthesia Hx Anesthesia: No Hx Anesthesia Reactions: No Hx Malignant Hyperthermia: No Family/Social History - Physician Review Nursing Documentation Reviewed: Yes Family/Social History: Unknown Family HX Smoking Status: Never Smoked Hx Alcohol Use: Yes Hx Substance Use: No Allergies/Home Meds Allergies/Adverse Reactions: Allergies Penicillins Allergy (Verified 02/05/18 20:17) RASH Sulfa (Sulfonamide Antibiotics) Allergy (Verified 02/05/18 20:17) RASH Home Medications: Home Meds Medication Instructions Recorded Confirmed Levothyroxine [Synthroid] 50 mcg PO DAILY 03/17/17 02/05/18 Review of Systems - Physician Review All systems were reviewed & negative as marked: Yes - Review of Systems Constitutional: Other (+generalized weakness) Eyes: Normal ENT: Normal Respiratory: Normal. absent: SOB, Cough Cardiovascular: Chest Pain, Syncope Gastrointestinal: Normal. absent: Abdominal Pain, Diarrhea, Nausea, Vomiting Genitourinary Female: Normal. absent: Dysuria, Frequency, Hematuria, Urine Output Changes Musculoskeletal: Normal. absent: Back Pain, Neck Pain Skin: Normal. absent: Rash Neurological: Normal. absent: Headache, Dizziness Endocrine: Normal Hemo/Lymphatic: Normal Psychiatric: Normal Physical Exam Vital Signs Reviewed: Yes Temperature: Afebrile Blood Pressure: Normal Pulse: Regular Respiratory Rate: Normal Appearance: Positive for: Well-Appearing, Non-Toxic, Comfortable Pain Distress: None Mental Status: Positive for: Alert and Oriented X 3 - Systems Exam Head: Present: Atraumatic, Normocephalic Pupils: Present: PERRL Extroacular Muscles: Present: EOMI Conjunctiva: Present: Normal Mouth: Present: Moist Mucous Membranes Neck: Present: Normal Range of Motion. No: Meningeal Signs, MIDLINE TENDERNESS, Paraspinal Tenderness Respiratory/Chest: Present: Clear to Auscultation, Good Air Exchange. No: Respiratory Distress, Accessory Muscle Use Cardiovascular: Present: Regular Rate and Rhythm, Normal S1, S2. No: Murmurs Abdomen: No: Tenderness, Distention, Peritoneal Signs Back: Present: Normal Inspection. No: CVA Tenderness, Midline Tenderness, Paraspinal Tenderness Upper Extremity: Present: Normal Inspection. No: Cyanosis, Edema Lower Extremity: Present: Normal Inspection. No: Edema Neurological: Present: GCS=15, CN II-XII Intact, Speech Normal, Motor Func Grossly Intact, Normal Sensory Function, Normal Cerebellar Funct, Memory Normal Skin: Present: Warm, Dry, Normal Color. No: Rashes Psychiatric: Present: Alert, Oriented x 3, Normal Insight, Normal Concentration Medical Decision Making ED Course and Treatment: 06/10/18 22:58 Impression: 27 year old female complaining of chest pain radiating to left arm and syncope today. Plan: -- CT Head w/o contrast -- EKG -- Chest X-ray -- Labs, cardiac enzymes -- Tylenol -- Reassess and disposition Prior Visits: Notes and results from previous visits were reviewed. On 02/05/2018, pt was seen in the Emergency department for chest discomfort, abdominal discomfort, and lower back pain with numbness to lower legs. Pt was admitted to the hospital for further evaluation. Progress Notes: Reviewed EKG, NSR at 71 bpm. LAD. No acute changes. 06/11/18 02:09 Chest X-ray reviewed, shows no acute processes. 06/11/18 02:20 Case discussed with biomedical engineering supervisor fabrication specialist, who is aware and agrees with plan. 06/11/18 02:[address] Brigid Morel, who is aware and agrees with plan. Accepts pt in to hospitalist service. Pt will go to telemetry observation for syncope and chest pain. 06/11/18 03:06 CT Head reviewed, shows: Normal size of the ventricles and extra-axial spaces for the patient's age. Normal white matter tracts of the supratentorial brain. Normal basal ganglia and thalami. Normal brainstem. Normal cerebellum. There is no demonstrated extra-axial, intraparenchymal, or intraventricular hemorrhage. There are no findings of an acute ischemic infarction. Normal calvarium. There is no demonstrated fracture. Normal soft tissue structures. Normal visualized paranasal sinuses. IMPRESSION: Normal unenhanced CT scan of the brain. Electronically signed on Jun 11, 2018 3:05:03 AM EST by: Elissa Lim M.D., Certified by ABR, MSK, Neuroradiology - Lab Interpretations I have reviewed the lab results: Yes - RAD Interpretation Director Of Catering: ED Physician, Radiologist - EKG Interpretation Interpreted by ED Physician: Yes Type: 12 lead EKG - Scribe Statement The provider has reviewed the documentation as recorded by the Zunildaibchristiano Barrett Provider Scribe Attestation: All medical record entries made by the Scribe were at my direction and personally dictated by me. I have reviewed the chart and agree that the record accurately reflects my personal performance of the history, physical exam, medical decision making, and the department course for this patient. I have also personally directed, reviewed, and agree with the discharge instructions and disposition. Disposition/Present on Arrival - Present on Arrival Any Indicators Present on Arrival: No History of DVT/PE: No History of Uncontrolled Diabetes: No Urinary Catheter: No History of Decub. Ulcer: No History Surgical Site Infection Following: None - Disposition Have Diagnosis and Disposition been Completed?: Yes Diagnosis: Syncope, Chest pain Disposition: HOSPITALIZED Disposition Time: 02:39 Patient Plan: Observation Patient Problems: Current Active Problems Problem Status Onset Chest pain Acute Syncopal episodes Acute Condition: STABLE
[2018-06-10 23:27] LABS: HEMOGLOBIN 13.4 g/dL (12.0-16.0); MEAN CELL VOLUME 88.4 fl (80.0-105.0); MEAN CORPUSCULAR HEMOGLOBIN 29.3 pg (25.0-35.0); MEAN CORPUSCULAR HGB CONC 33.1 g/dl (31.0-37.0); MEAN PLATELET VOLUME 10.7 fl (7.0-11.0); RBC 4.58 10^6/uL (3.5-6.1); RED CELL DISTRIBUTION WIDTH 12.5 % (11.5-14.5); WHITE BLOOD COUNT 6.8 10^3/uL (4.5-11.0)
[2018-06-10 23:33] LABS: INR 0.96; PARTIAL THROMBOPLASTIN TIME 30.6 Seconds (25.1-36.5); PROTHROMBIN TIME 10.9 SECONDS (9.4-12.5)
[2018-06-10 23:48] LABS: ALB/GLOB RATIO 1.2 (1.1-1.8); ALT/SGPT 19 U/L (7-56); AST/SGOT 22 U/L (14-36); BLOOD UREA NITROGEN 14 mg/dL (7-21); CALCIUM 9.1 mg/dL (8.4-10.5); GFR NON-AFRICAN AMERICAN > 60
[2018-06-11] LABS: TROPONIN I < 0.01 ng/mL
--- NOTE | 2018-06-11 03:53 | CP.PCM.HP ---
History of Present Illness - History of Present Illness History of Present Illness: Roscoe Starks DO, PGY-1 Hospitalist Admission History and Physical for Dr. Fuentes Morel CC: syncope, L sided CP HPI: Ms. Michael is a 27 year old female with PMH of paroxysmal AFib and hypothyroidism presented to ED following a syncopal episode that occurred about 12 hours ago at 1500 yesterday afternoon. Patient states that she felt light- headed, had some palpitations and then suddenly blacked out. She remembers waking up on the floor afterwards. She was walking out of yarsanism when she had the syncopal episode, and her government property inspector had caught her to prevent her from falling hard on to the ground. She admits to having a BORREGO and feeling intermittently dizzy since the incident. Shortly after the incident, she also began to have left-sided CP which she describes as a dull, burning type sensation that radiates down to her left arm. The CP is not made worse with exertion and feels constant since the syncopal episode. She denies fever/chills, SOB, dyspnea on exertion, nausea/vomiting/abdominal pain, peripheral numbness/tingling, or blurred vision. PMH: paroxysmal AFib and hypothyroidism PSH: D & C, cholecystectomy All: PCN, sulfa Fam Hx: father has CAD Home medications: levothyroxine 50 mcg daily Soc Hx: denies tobacco, alcohol, or drug use. Present on Admission - Present on Admission Any Indicators Present on Admission: No History of DVT/PE: No History of Uncontrolled Diabetes: No Urinary Catheter: No Decubitus Ulcer Present: No Review of Systems - Constitutional Constitutional: absent: Chills, Fever - EENT Eyes: absent: Blurred Vision, Change in Vision Nose/Mouth/Throat: absent: Sinus Pressure, Dry Mouth - Cardiovascular Cardiovascular: Chest Pain, Chest Pain at Rest, Palpitations, Syncope. absent: Diaphoresis, Dyspnea, Pedal Edema - Respiratory Respiratory: absent: Cough, Dyspnea, Dyspnea on Exertion - Gastrointestinal Gastrointestinal: absent: Abdominal Pain, Nausea, Vomiting - Genitourinary Genitourinary: absent: Change in Urinary Stream, Dysuria Past Patient History - Infectious Disease Hx of Infectious Diseases: None - Tetanus Immunizations Tetanus Immunization: Unknown - Past Social History Smoking Status: Never Smoked - CARDIAC Hx Cardiac Disorders: Yes Hx Atrial Fibrillation: Yes - PULMONARY Hx Respiratory Disorders: No - NEUROLOGICAL Hx Neurological Disorder: Yes Hx Syncope: Yes - HEENT Hx HEENT Problems: No - RENAL Hx Chronic Kidney Disease: No - ENDOCRINE/METABOLIC Hx Endocrine Disorders: Yes Hx Hypothyroidism: Yes - HEMATOLOGICAL/ONCOLOGICAL Hx Blood Disorders: No - INTEGUMENTARY Hx Dermatological Problems: No - MUSCULOSKELETAL/RHEUMATOLOGICAL Hx Musculoskeletal Disorders: No - GASTROINTESTINAL Hx Gastrointestinal Disorders: No - GENITOURINARY/GYNECOLOGICAL Hx Genitourinary Disorders: No - PSYCHIATRIC Hx Psychophysiologic Disorder: No Hx Substance Use: No - SURGICAL HISTORY Hx Cholecystectomy: Yes Hx Dilation and Curettage: Yes - ANESTHESIA Hx Anesthesia: No Hx Anesthesia Reactions: No Hx Malignant Hyperthermia: No Meds Allergies/Adverse Reactions: Allergies Allergy/AdvReac Type Severity Reaction Status Date / Time Penicillins Allergy RASH Verified 02/05/18 20:17 Sulfa (Sulfonamide Allergy RASH Verified 02/05/18 20:17 Antibiotics) Physical Exam - Constitutional Appears: Non-toxic, No Acute Distress - Head Exam Head Exam: ATRAUMATIC, NORMOCEPHALIC - Eye Exam Eye Exam: EOMI, Normal appearance, PERRL Additional comments: no nystagmus on lateral gaze - ENT Exam ENT Exam: Mucous Membranes Moist - Neck Exam Neck exam: Positive for: Full Rom, Normal Inspection - Respiratory Exam Respiratory Exam: Clear to Auscultation Bilateral, NORMAL BREATHING PATTERN. absent: Accessory Muscle Use, Rales, Rhonchi, Wheezes, Respiratory Distress - Cardiovascular Exam Cardiovascular Exam: REGULAR RHYTHM, RRR, +S1, +S2. absent: Diastolic murmur, Gallop, Rubs, Systolic Murmur - GI/Abdominal Exam GI & Abdominal Exam: Normal Bowel Sounds, Soft. absent: Guarding, Tenderness - Extremities Exam Extremities exam: Positive for: normal inspection. Negative for: pedal edema - Back Exam Back exam: NORMAL INSPECTION - Neurological Exam Neurological exam: Alert, CN II-XII Intact, Oriented x3 Additional comments: no nystagmus on lateral gaze, normal atkdas-wh-wdsw testing - Psychiatric Exam Psychiatric exam: Normal Affect, Normal Mood - Skin Skin Exam: Dry, Intact, Warm Results - Vital Signs Recent Vital Signs: Last Vital Signs Temp 98.1 F 06/10/18 23:02 Pulse 71 06/10/18 23:02 Resp 15 06/10/18 23:02 BP 104/44 L 06/10/18 23:02 Pulse Ox 98 06/10/18 23:02 - Labs Result Diagrams: 06/10/18 23:15 06/10/18 23:15 Labs: Laboratory Results - last 24 hr 06/10/18 06/10/18 06/10/18 23:15 23:15 23:15 WBC 6.8 RBC 4.58 Hgb 13.4 Hct 40.5 MCV 88.4 MCH 29.3 MCHC 33.1 RDW 12.5 Plt Count 215 MPV 10.7 PT 10.9 INR 0.96 APTT 30.6 Sodium 139 Potassium 3.9 Chloride 103 Carbon Dioxide 29 Anion Gap 11 BUN 14 Creatinine 0.7 Est GFR ( Amer) > 60 Est GFR (Non-Af Amer) > 60 Random Glucose 105 Calcium 9.1 Total Bilirubin 0.9 AST 22 ALT 19 Alkaline Phosphatase 74 Lactate Dehydrogenase 410 Total Creatine Kinase 55 Troponin I < 0.01 Total Protein 7.2 Albumin 4.0 Globulin 3.2 Albumin/Globulin Ratio 1.2 Assessment & Plan - Assessment and Plan (Free Text) Assessment: 27 yo F with PMH of paroxysmal AFib and hypothyroidism is admitted following a syncopal episode and is also having L-sided CP. Plan: 1. Syncopal episode Likely 2/2 arrhythmia vs hyperthyroidism vs vasovagal syncope Patient admits to palpitations in the past (paroxysmal Afib) and prior to the incident Will get TTE, b/l carotid duplex, orthostatic VS Thyroid function studies EKG in ED is NSR without ST or T wave changes, troponin negative Cardio, neuro consult 2. L sided CP Likely 2/2 musculoskeletal strain vs pain from palpitations Low suspicion for ACS at this point Trend troponin q62 x 2 Repeat EKG in AM F/u TTE results Cardiology consulted, recs appreciated 3. Hx hypothyroidism Continue home synthroid dose for now F/u results of thyroid function studies in AM DVT/GI PPX: lovenox, protonix Full Code HHD Monitor on telemetry Case and plan reviewed and discussed with my attending Dr. Fuentes Starks, DO IM Resident PGY-1
[2018-06-11 04:31] VITALS: BMI 39.6
[2018-06-11] MEDS ORDERED: Levothyroxine 50 MCG TAB PO SCH (06:00)
[2018-06-11] MEDS: Pantoprazole 40 mg EC Tab PO SCH (06:30)
--- NOTE | 2018-06-11 08:07 | CP.PCM.CON ---
History of Present Illness - History of Present Illness History of Present Illness: Gigi Harris- Internal Medicine Resident- Consult Note on Behalf of Neurology Team Subjective: CC: Syncope and Chest Pain HPI: Patient is a 27 year old female with a past medical history of paroxysmal afib and hypothyroidism who was admitted for evaluation and treatment of a syncopal episode. The neurology team was consulted for management of the aforementioned symptom. Patient seen and examined at bedside. Patient states that recalls experiencing palpitations followed by a loss of consciousness. Patient fall was witnessed. Denies experiencing trauma to the head. Admits to intermittent baseline headache and intermittent dizziness. Denies associated weakness and sensory changes in his upper/lower extremities bilaterally. Patient denied tongue biting, confusion, auditory/visual changes from baseline, and focal deficits. Further denies fever, chills, chest pain, shortness of breath, nausea, vomiting, diarrhea, constipation, and urinary symptoms. 12 point ROS negative except as indicated in HPI Past Medical History: paroxysmal AFib and hypothyroidism Past Surgical History: D & C, cholecystectomy Allergies: PCN, sulfa Social History: denies alcohol, tobacco, or drug use. Family History: father has CAD Home medications: levothyroxine 50 mcg daily Physical Examination: - Constitutional Appears: Well, Non-toxic, No Acute Distress - Head Exam Head Exam: ATRAUMATIC, NORMAL INSPECTION, NORMOCEPHALIC - Eye Exam Eye Exam: EOMI, Normal appearance - ENT Exam ENT Exam: Mucous Membranes Moist, Normal Exam, No tongue laceration - Neck Exam Neck exam: Positive for: Full Rom, Normal Inspection - Respiratory Exam Respiratory Exam: Clear to Auscultation Bilateral, NORMAL BREATHING PATTERN. absent: Accessory Muscle Use, Rales, Rhonchi, Wheezes, Respiratory Distress - Cardiovascular Exam Cardiovascular Exam: REGULAR RHYTHM, +S1, +S2 - GI/Abdominal Exam GI & Abdominal Exam: Normal Bowel Sounds, Soft. absent: Distended, Firm, Guarding, Rebound, Rigid, Tenderness - Extremities Exam Extremities exam: Positive for: full ROM, normal capillary refill, normal inspection, pedal pulses present - Back Exam Back exam: NORMAL INSPECTION - Neurological Exam Neurological exam: awake, alert, orientated x 3, responds to verbal stimuli, answers questions appropriately, follows commands, moves extremities past midline, ambulates without overt difficultly, muscle strength 5/5 bilateral upper and lower extremities, sensation is intact to touch throughout, CNII-CNXII intact bilaterally, no dysmetria - Psychiatric Exam Psychiatric exam: Normal Affect, Normal Mood - Skin Skin Exam: Intact, Normal Color, Warm Assessment and Plan: Patient is a 27 year old female with a past medical history of paroxysmal afib and hypothyroidism who was admitted for evaluation and treatment of a syncopal episode. The neurology team was consulted for management of the aforementioned symptom. Syncope - 06/10/[address] without contrast- No acute findings - MRI brain without contrast- ordered and pending - Echo ordered and pending - Carotid duplex ultrasound ordered and pending - keep patient euglcyemic, normothermic, and electrolytes WNL Patient case discussed with and plan approved by attending physician, Dr. Carrizales Past Patient History - Infectious Disease Hx of Infectious Diseases: None - Tetanus Immunizations Tetanus Immunization: Unknown - Past Social History Smoking Status: Never Smoked - CARDIAC Hx Cardiac Disorders: Yes (A-fib) - PULMONARY Hx Respiratory Disorders: No - NEUROLOGICAL Hx Neurological Disorder: Yes (Syncopal episodes) Hx Dizziness: Yes - HEENT Hx HEENT Problems: No - RENAL Hx Chronic Kidney Disease: No - ENDOCRINE/METABOLIC Hx Endocrine Disorders: Yes Hx Hypothyroidism: Yes - HEMATOLOGICAL/ONCOLOGICAL Hx Blood Disorders: No - INTEGUMENTARY Hx Dermatological Problems: No - MUSCULOSKELETAL/RHEUMATOLOGICAL Hx Musculoskeletal Disorders: No Hx Falls: Yes - GASTROINTESTINAL Hx Gastrointestinal Disorders: No - GENITOURINARY/GYNECOLOGICAL Hx Genitourinary Disorders: No - PSYCHIATRIC Hx Psychophysiologic Disorder: No - SURGICAL HISTORY Hx Surgeries: Yes Hx Cholecystectomy: Yes - ANESTHESIA Hx Anesthesia: No Hx Anesthesia Reactions: No Hx Malignant Hyperthermia: No Meds Allergies/Adverse Reactions: Allergies Allergy/AdvReac Type Severity Reaction Status Date / Time Penicillins Allergy RASH Verified 02/05/18 20:17 Sulfa (Sulfonamide Allergy RASH Verified 02/05/18 20:17 Antibiotics) - Medications Medications: Current Medications Acetaminophen (Tylenol 325mg Tab) 650 mg PO Q6H PRN PRN Reason: Pain, moderate (4-7) Enoxaparin Sodium (Lovenox) 40 mg SC DAILY [facility]; Protocol Levothyroxine Sodium (Synthroid) 50 mcg PO 0600 [facility] Last Admin: 06/11/18 06:30 Dose: 50 mcg Ondansetron HCl (Zofran Inj) 4 mg IVP Q6H PRN PRN Reason: Nausea/Vomiting Pantoprazole Sodium (Protonix Ec Tab) 40 mg PO 0600 [facility] Last Admin: 06/11/18 06:30 Dose: 40 mg Results - Vital Signs Recent Vital Signs: Last Vital Signs Temp 98.1 F 06/10/18 23:02 Pulse 67 06/11/18 06:00 Resp 20 06/11/18 04:23 BP 110/60 06/11/18 03:01 Pulse Ox 99 06/11/18 04:25 - Labs Result Diagrams: 06/11/18 08:10 06/11/18 08:10 Labs: Laboratory Results - last 24 hr 06/10/18 06/10/18 06/10/18 23:15 23:15 23:15 WBC 6.8 RBC 4.58 Hgb 13.4 Hct 40.5 MCV 88.4 MCH 29.3 MCHC 33.1 RDW 12.5 Plt Count 215 MPV 10.7 PT 10.9 INR 0.96 APTT 30.6 Sodium 139 Potassium 3.9 Chloride 103 Carbon Dioxide 29 Anion Gap 11 BUN 14 Creatinine 0.7 Est GFR ( Amer) > 60 Est GFR (Non-Af Amer) > 60 Random Glucose 105 Calcium 9.1 Total Bilirubin 0.9 AST 22 ALT 19 Alkaline Phosphatase 74 Lactate Dehydrogenase 410 Total Creatine Kinase 55 Troponin I < 0.01 Total Protein 7.2 Albumin 4.0 Globulin 3.2 Albumin/Globulin Ratio 1.2
[2018-06-11 08:38] LABS: BASO # 0.04 K/mm3 (0.0-2.0); BASO % 0.8 % (0.0-3.0); EOS # 0.1 (0.0-0.7); EOS % 2.2 % (1.5-5.0); GRAN # 2.55 (1.4-6.5); GRAN % 51.2 % (50.0-68.0); HEMOGLOBIN 13.3 g/dL (12.0-16.0); LYMPH % 40.2 % (22.0-35.0); MEAN CELL VOLUME 87.5 fl (80.0-105.0); MEAN CORPUSCULAR HEMOGLOBIN 28.7 pg (25.0-35.0); MEAN CORPUSCULAR HGB CONC 32.8 g/dl (31.0-37.0); MEAN PLATELET VOLUME 10.7 fl (7.0-11.0); MONO # 0.3 (0.1-0.6); MONO % 5.6 % (1.0-6.0); RBC 4.63 10^6/uL (3.5-6.1); RED CELL DISTRIBUTION WIDTH 12.5 % (11.5-14.5)
[2018-06-11 08:50] LABS: ALB/GLOB RATIO 1.3 (1.1-1.8); ALBUMIN 3.9 g/dL (3.0-4.8); ALT/SGPT 17 U/L (7-56); AST/SGOT 16 U/L (14-36); BLOOD UREA NITROGEN 10 mg/dL (7-21); CALCIUM 9.1 mg/dL (8.4-10.5); GFR NON-AFRICAN AMERICAN > 60; HDL CHOLESTEROL 40 mg/dL (29-60)
[2018-06-11 08:58] LABS: LDL CHOLESTEROL 123 mg/dL (0-129)
--- NOTE | 2018-06-11 09:23 | CARD ---
APPROVED REPORT Date of service: 06/11/2018 EKG Measurement Heart [id number] <Conclusion> Normal sinus rhythm Left axis deviation low Voltage. Non Specific ST_T Changes.
--- NOTE | 2018-06-11 09:51 | CT ---
Date of service: 06/11/2018 PROCEDURE: CT HEAD WITHOUT CONTRAST. HISTORY: syncope COMPARISON: None available. TECHNIQUE: Axial computed tomography images were obtained through the head/brain without intravenous contrast. Radiation dose: Total exam DLP = 912.21 mGy-cm. This CT exam was performed using one or more of the following dose reduction techniques: Automated exposure control, adjustment of the mA and/or kV according to patient size, and/or use of iterative reconstruction technique. FINDINGS: HEMORRHAGE: No intracranial hemorrhage. BRAIN: No mass effect or edema. No atrophy or chronic microvascular ischemic changes. VENTRICLES: Unremarkable. No hydrocephalus. CALVARIUM: Unremarkable. PARANASAL SINUSES: Unremarkable as visualized. No significant inflammatory changes. MASTOID AIR CELLS: Unremarkable as visualized. No inflammatory changes. OTHER FINDINGS: The report concurs with the preliminary [facility] report IMPRESSION: No acute findings
[2018-06-11] MEDS: Enoxaparin 40 mg Syringe SC SCH (10:16)
--- NOTE | 2018-06-11 11:11 | RAD ---
Date of service: 06/10/2018 PROCEDURE: CHEST RADIOGRAPH, 1 VIEW HISTORY: pain COMPARISON: 02/05/2018 FINDINGS: LUNGS: Clear. PLEURA: No pneumothorax or pleural fluid seen. CARDIOVASCULAR: Normal. OSSEOUS STRUCTURES: No significant abnormalities. VISUALIZED UPPER ABDOMEN: Normal. OTHER FINDINGS: None. IMPRESSION: No active disease.
[2018-06-11] MEDS ORDERED: Levothyroxine 75 MCG TAB PO SCH (12:32)
--- NOTE | 2018-06-11 14:19 | US ---
PROCEDURE: Bilateral carotid artery duplex ultrasound HISTORY: Carotid stenosis syncope PHYSICIAN(S): Servando Robledo MD. TECHNIQUE: Duplex sonography and color-flow Doppler were used to evaluate the carotid bifurcations and limited segments of the vertebral arteries bilaterally. FINDINGS: There is minimal intimal-medial thickening noted at the carotid bifurcations bilaterally. The peak systolic velocity in the proximal right internal carotid artery is 64 cm/sec. This corresponds to a 0-19 percent proximal right ICA stenosis. Normal systolic velocities are noted in the proximal right external carotid artery. There is antegrade flow in the right vertebral artery. The peak systolic velocity in the proximal left internal carotid artery is 71 cm/sec. This corresponds to a 0-19 percent proximal left ICA stenosis. Normal systolic velocities are noted in the proximal left external carotid artery. There is antegrade flow in the dominant left vertebral artery. IMPRESSION: 1. Bilateral 0-19 percent proximal ICA stenoses. 2. Antegrade flow in both vertebral arteries.
--- NOTE | 2018-06-11 14:38 | CARD ---
APPROVED REPORT Date of service: 06/10/2018 EKG Measurement Heart [id number] <Conclusion> Normal sinus rhythm Left axis deviation Otherwise normal ECG
[2018-06-11] MEDS ORDERED: Sodium Chloride 0.9% 1,000 ML IV SCH (14:45)
--- NOTE | 2018-06-11 15:48 | CARD ---
APPROVED REPORT Date of service: 06/11/2018 EXAM: Two-dimensional and M-mode echocardiogram with Doppler and color Doppler. INDICATION Syncope 2D DIMENSIONS Left Atrium (2D)3.4 (1.6-4.0cm)IVSd0.9 (0.7-1.1cm) LVDd5.1 (3.9-5.9cm)PWd0.9 (0.7-1.1cm) LVDs3.4 (2.5-4.0cm)FS (%) 33.1 % LVEF (%)61.3 (>50%) M-Mode DIMENSIONS Aortic Root2.50 (2.2-3.7cm)Aortic Cusp Exc.1.80 (1.5-2.0cm) Aortic Valve AoV Peak Fihvbvuo099.0cm/Toshia Peak GR.5mmHg Mitral Valve MV E Dibbawpm74.0cm/sMV A Adtmycpw60.9cm/sE/A ratio1.3 TDI E/Lateral E'0.0E/Medial E'0.0 Tricuspid Valve TR Peak Ojzyovmg985mh/sRAP [id number] Peak Gr.17mmHg [id number] LEFT VENTRICLE The left ventricle is normal size. There is normal left ventricular wall thickness. The left ventricular function is normal. The left ventricular ejection fraction is within the normal range. There is normal LV segmental wall motion. The left ventricular diastolic function is normal. RIGHT VENTRICLE The right ventricle is normal size. There is normal right ventricular wall thickness. The right ventricular systolic function is normal. ATRIA The left atrium size is normal. The right atrium size is normal. AORTIC VALVE The aortic valve is normal in structure. No aortic regurgitation is present. There is no aortic valvular stenosis. MITRAL VALVE The mitral valve is normal in structure. There is no mitral valve regurgitation noted. There is no mitral valve stenosis. TRICUSPID VALVE The tricuspid valve is normal in structure. There is trace to mild tricuspid regurgitation. PULMONIC VALVE The pulmonary valve is normal in structure. There is trace to mild pulmonic valvular regurgitation. GREAT VESSELS The aortic root is normal in size. PERICARDIAL EFFUSION There is no pericardial effusion. <Conclusion> The left ventricle is normal size. There is normal left ventricular wall thickness. The left ventricular function is normal. The left ventricular ejection fraction is within the normal range. There is normal LV segmental wall motion. The left ventricular diastolic function is normal.
[2018-06-11] MEDS ORDERED: Iohexol 350 MG/100 ML VIAL ONE (19:27)
--- NOTE | 2018-06-11 20:58 | CON ---
DATE: 06/11/2017 REASON FOR CONSULTATION: Syncope. HISTORY OF PRESENT ILLNESS: The patient is 27 years old morbidly obese female, who has a history of hyperthyroidism and was diagnosed with paroxysmal atrial fibrillation after having a loop recorder inserted, and the patient has been on Synthroid for the past two years. The patient had a fainting episode while she was in the congregational, she was in a standing position next to the setup technician who was able to hold her and prevent her from falling. The patient did experience palpitation and dizziness before the fainting episode. The patient denies any falling to the ground. SOCIAL HISTORY: Nonsmoker, nondrinker. She is a mother of three. The youngest is one year old. MEDICATIONS: Lovenox 40 mg subcutaneous daily, Protonix 200 mg p.o. once a day, Synthroid 50 mcg once a day, Zofran 4 mg q.6h. p.r.n.. PHYSICAL EXAMINATION GENERAL: The patient is an young middle-aged female, who does not appear to be in any distress. VITAL SIGNS: Blood pressure 180/74, heart rate 70, temperature 97.4, respirations 18. HEENT: Normocephalic. NECK: No JVD. CHEST: Clear. HEART: S1 and S2 regular. ABDOMEN: Soft. EXTREMITIES: No edema and no calf tenderness. LABORATORY DATA: Yesterday's CBC is entirely within normal limits. PT, PTT and INR are within normal limits. Today's SMA-7 is within normal limits except for a creatinine of 0.6. Lipid profile and liver enzymes are within normal limits. TSH level is 7.11 and free T4 is 0.62. EKG revealed sinus rhythm, heart rate of 67 with poor R-wave progression. Admitting EKG yesterday revealed the same picture at a heart rate of 71. Head CT scan without contrast, no acute findings. Chest x-ray was unremarkable. The patient still has a loop recorder. ASSESSMENT: 1. Paroxysmal atrial fibrillation. 2. Syncopal episode. 3. Hypothyroidism. RECOMMENDATIONS: Continue subcutaneous Lovenox at 40 mg once a day, Synthroid at 50 mcg once a day. I will follow carotid Doppler study, obtain serial D-Dimer as well as venous Doppler of the lower extremities. I will review echo cardio study which is about to be performed today. Paresh Davila MD [facility] # [id number]
[2018-06-11 23:11] LABS: PH,URINE 6.5 (4.7-8.0); URINE BILIRUBIN NEGATIVE (NEGATIVE); URINE BLOOD NEGATIVE (NEGATIVE); URINE GLUCOSE (UA) NEGATIVE (NEGATIVE); URINE LEUKOCYTE ESTERASE TRACE Leu/uL (NEGATIVE); URINE PROTEIN NEGATIVE mg/dL (<30 mg/dL); URINE UROBILINOGEN 0.2 E.U./dL (<1 E.U./dL)
[2018-06-11 23:18] LABS: URINE APPEARANCE CLEAR (CLEAR); URINE COLOR YELLOW (YELLOW)
[2018-06-11 23:19] LABS: HCG,QUALITATIVE URINE NEGATIVE (NEGATIVE)
[2018-06-11 23:28] LABS: BARBITURATES, UR NEGATIVE (NEGATIVE); BENZODIAZEPINES, UR NEGATIVE (NEGATIVE); OPIATES, UR NEGATIVE (NEGATIVE); PHENCYCLIDINE, UR NEGATIVE (NEGATIVE)
[2018-06-11 23:38] LABS: URINE BACTERIA RARE (NEG); URINE EPITHELIAL CELLS MANY /hpf (0-5); URINE RBC 0 - 2 /hpf (0-2)
[2018-06-12 01:40] VITALS: RESP 20
[2018-06-12] MEDS: Pantoprazole 40 mg EC Tab PO SCH (05:24)
[2018-06-12 06:36] LABS: BASO # 0.03 K/mm3 (0.0-2.0); BASO % 0.6 % (0.0-3.0); EOS # 0.1 (0.0-0.7); EOS % 2.2 % (1.5-5.0); GRAN # 2.16 (1.4-6.5); GRAN % 42.7 % (50.0-68.0); HEMOGLOBIN 13.3 g/dL (12.0-16.0); LYMPH # 2.5 (1.2-3.4); LYMPH % 49.4 % (22.0-35.0); MEAN CELL VOLUME 88.3 fl (80.0-105.0); MEAN CORPUSCULAR HEMOGLOBIN 28.8 pg (25.0-35.0); MEAN CORPUSCULAR HGB CONC 32.6 g/dl (31.0-37.0); MEAN PLATELET VOLUME 10.7 fl (7.0-11.0); MONO # 0.3 (0.1-0.6); MONO % 5.1 % (1.0-6.0); RBC 4.62 10^6/uL (3.5-6.1); RED CELL DISTRIBUTION WIDTH 12.8 % (11.5-14.5); WHITE BLOOD COUNT 5.1 10^3/uL (4.5-11.0)
[2018-06-12 06:41] LABS: ALB/GLOB RATIO 1.2 (1.1-1.8); ALBUMIN 3.6 g/dL (3.0-4.8); ALT/SGPT 16 U/L (7-56); AST/SGOT 15 U/L (14-36); BLOOD UREA NITROGEN 12 mg/dL (7-21); CALCIUM 8.6 mg/dL (8.4-10.5); GFR NON-AFRICAN AMERICAN > 60
--- NOTE | 2018-06-12 08:19 | CT ---
Date of service: 06/11/2018 PROCEDURE: CT HEAD WITH CONTRAST HISTORY: syncope COMPARISON: Earlier same day TECHNIQUE: Axial computed tomography images were obtained through the head/brain with intravenous contrast. Contrast dose: 100 cc of Omni 350 Radiation dose: Total exam DLP = 913.29 mGy-cm. This CT exam was performed using one or more of the following dose reduction techniques: Automated exposure control, adjustment of the mA and/or kV according to patient size, and/or use of iterative reconstruction technique. FINDINGS: HEMORRHAGE: No intracranial hemorrhage. BRAIN: No mass, mass effect or edema. No abnormal intracranial enhancement. No atrophy or chronic microvascular ischemic changes. VENTRICLES: Unremarkable. No hydrocephalus. CALVARIUM: Unremarkable. PARANASAL SINUSES: Unremarkable as visualized. No significant inflammatory changes. MASTOID AIR CELLS: Unremarkable as visualized. No mastoid effusion. OTHER FINDINGS: The report concurs with the preliminary [facility] report IMPRESSION: No acute intracranial findings
[2018-06-12 08:40] VITALS: BP 107/67; PULSE 61; TEMP 97.7; O2SAT 96
--- NOTE | 2018-06-12 09:34 | CP.PCM.PN ---
<Gigi Harris - Last Filed: 06/12/18 14:54> Subjective - Date & Time of Evaluation Date of Evaluation: 06/12/18 Time of Evaluation: 13:55 - Subjective Subjective: Gigi Harris- Internal Medicine Resident- Progress Note on Behalf of Neurology Team Subjective: Patient seen and examined at bedside. No acute overnight event. States dizziness has improved relative to baseline. Offers no new complaints. Denies headache, dizziness, weakness, and focal deficits. 12 point ROS negative except as indicated in HPI Physical Examination: - Constitutional Appears: Well, Non-toxic, No Acute Distress - Head Exam Head Exam: ATRAUMATIC, NORMAL INSPECTION, NORMOCEPHALIC - Eye Exam Eye Exam: EOMI, Normal appearance - ENT Exam ENT Exam: Mucous Membranes Moist, Normal Exam, No tongue laceration - Neck Exam Neck exam: Positive for: Full Rom, Normal Inspection - Respiratory Exam Respiratory Exam: Clear to Auscultation Bilateral, NORMAL BREATHING PATTERN. absent: Accessory Muscle Use, Rales, Rhonchi, Wheezes, Respiratory Distress - Cardiovascular Exam Cardiovascular Exam: REGULAR RHYTHM, +S1, +S2 - GI/Abdominal Exam GI & Abdominal Exam: Normal Bowel Sounds, Soft. absent: Distended, Firm, Guarding, Rebound, Rigid, Tenderness - Extremities Exam Extremities exam: Positive for: full ROM, normal capillary refill, normal inspection, pedal pulses present - Back Exam Back exam: NORMAL INSPECTION - Neurological Exam Neurological exam: awake, alert, orientated x 3, responds to verbal stimuli, answers questions appropriately, follows commands, moves extremities past midline, ambulates without overt difficultly, muscle strength 5/5 bilateral upper and lower extremities, sensation is intact to touch throughout, CNII-CNXII intact bilaterally, no dysmetria - Psychiatric Exam Psychiatric exam: Normal Affect, Normal Mood - Skin Skin Exam: Intact, Normal Color, Warm Assessment and Plan: Patient is a 27 year old female with a past medical history of paroxysmal afib and hypothyroidism who was admitted for evaluation and treatment of a syncopal episode. The neurology team was consulted for management of the aforementioned symptom. Syncope - 06/10/[address] without contrast- No acute findings - 06/11/[address] with contrast- No acute intracranial findings - Carotid duplex ultrasound- 1. Bilateral 0-19 percent proximal ICA stenoses 2. Antegrade flow in both vertebral arteries. - keep patient euglcyemic, normothermic, and electrolytes WNL - ok to dc from neuro perspective, sxs likely secondary to cardiac etiology, follow up neuro on outpatient basis Patient case discussed with and plan approved by attending physician, Dr. Carrizales Objective - Vital Signs/Intake and Output Vital Signs (last 24 hours): Temp Pulse Resp BP Pulse Ox 97.7 F 61 20 107/67 96 06/12/18 08:39 06/12/18 08:39 06/12/18 08:39 06/12/18 08:39 06/12/18 08:39 Intake and Output: 06/12/18 06/12/18 06:59 18:59 Intake Total 1500 Balance 1500 - Medications Medications: Current Medications Acetaminophen (Tylenol 325mg Tab) 650 mg PO Q6H PRN PRN Reason: Pain, moderate (4-7) Last Admin: 06/11/18 19:42 Dose: 650 mg Atorvastatin Calcium (Lipitor) 10 mg PO DIN RADHA Enoxaparin Sodium (Lovenox) 40 mg SC DAILY [facility]; Protocol Last Admin: 06/11/18 10:16 Dose: 40 mg Levothyroxine Sodium (Synthroid) 75 mcg PO 0600 [facility] Last Admin: 06/12/18 05:24 Dose: 75 mcg Meclizine HCl (Antivert) 25 mg PO Q8 PRN PRN Reason: Dizziness Last Admin: 06/11/18 22:09 Dose: 25 mg Ondansetron HCl (Zofran Inj) 4 mg IVP Q6H PRN PRN Reason: Nausea/Vomiting Pantoprazole Sodium (Protonix Ec Tab) 40 mg PO 0600 [facility] Last Admin: 06/12/18 05:24 Dose: 40 mg Tramadol HCl (Ultram) 50 mg PO Q8 PRN PRN Reason: Pain, severe (8-10) Last Admin: 06/11/18 22:09 Dose: 50 mg - Labs Labs: 06/12/18 06:00 06/12/18 06:00 PT 10.9 SECONDS (9.4-12.5) 06/10/18 23:15 INR 0.96 06/10/18 23:15 APTT 30.6 Seconds (25.1-36.5) 06/10/18 23:15 <Sridhar Carrizales - Last Filed: 06/12/18 22:39> Objective - Vital Signs/Intake and Output Vital Signs (last 24 hours): Temp Pulse Resp BP Pulse Ox 97.7 F 61 20 107/67 96 06/12/18 08:39 06/12/18 08:39 06/12/18 08:39 06/12/18 08:39 06/12/18 08:39 - Labs Labs: 06/12/18 06:00 06/12/18 06:00 PT 10.9 SECONDS (9.4-12.5) 06/10/18 23:15 INR 0.96 06/10/18 23:15 APTT 30.6 Seconds (25.1-36.5) 06/10/18 23:15 Assessment and Plan - Assessment and Plan (Free Text) Assessment: All medical record entries made by the Resident were at my direction and personally dictated by me. I have reviewed the chart and agree that the record accurately reflects my personal performance of the history, physical exam, medical decision making, and the department course for this patient. I have also personally directed, reviewed, and agree with the discharge instructions and disposition.
[2018-06-12] MEDS: Enoxaparin 40 mg Syringe SC SCH (09:35)
--- NOTE | 2018-06-12 16:40 | CP.PCM.DIS ---
Provider - Provider Date of Admission: 06/11/18 02:37 Attending physician: Oscar Patterson MD Consults: cardio- hannallah neuro- korya Time Spent in preparation of Discharge (in minutes): 35 Hospital Course - Lab Results Lab Results: Most Recent Lab Values WBC 5.1 10^3/uL (4.5-11.0) 06/12/18 06:00 RBC 4.62 10^6/uL (3.5-6.1) 06/12/18 06:00 Hgb 13.3 g/dL (12.0-16.0) 06/12/18 06:00 Hct 40.8 % (36.0-48.0) 06/12/18 06:00 MCV 88.3 fl (80.0-105.0) 06/12/18 06:00 MCH 28.8 pg (25.0-35.0) 06/12/18 06:00 MCHC 32.6 g/dl (31.0-37.0) 06/12/18 06:00 RDW 12.8 % (11.5-14.5) 06/12/18 06:00 Plt Count 194 10^3/uL (120.0-450.0) 06/12/18 06:00 MPV 10.7 fl (7.0-11.0) 06/12/18 06:00 Gran % 42.7 % (50.0-68.0) L 06/12/18 06:00 Lymph % (Auto) 49.4 % (22.0-35.0) H 06/12/18 06:00 [place] % (Auto) 5.1 % (1.0-6.0) 06/12/18 06:00 Eos % (Auto) 2.2 % (1.5-5.0) 06/12/18 06:00 Baso % (Auto) 0.6 % (0.0-3.0) 06/12/18 06:00 Gran # 2.16 (1.4-6.5) 06/12/18 06:00 Lymph # (Auto) 2.5 (1.2-3.4) 06/12/18 06:00 [place] # (Auto) 0.3 (0.1-0.6) 11/06/18 06:00 Eos # (Auto) 0.1 (0.0-0.7) 06/12/18 06:00 Baso # (Auto) 0.03 K/mm3 (0.0-2.0) 06/12/18 06:00 PT 10.9 SECONDS (9.4-12.5) 06/10/18 23:15 INR 0.96 06/10/18 23:15 APTT 30.6 Seconds (25.1-36.5) 06/10/18 23:15 D-Dimer, Quantitative < 200 ng/mlDDU (0-243) 06/11/18 12:10 Sodium 140 mmol/L (132-148) 06/12/18 06:00 Potassium 4.0 mmol/L (3.6-5.0) 06/12/18 06:00 Chloride 107 mmol/L (98-107) 06/12/18 06:00 Carbon Dioxide 27 mmol/L (21-33) 06/12/18 06:00 Anion Gap 10 (10-20) 06/12/18 06:00 BUN 12 mg/dL (7-21) 06/12/18 06:00 Creatinine 0.7 mg/dl (0.7-1.2) 06/12/18 06:00 Est GFR ( Amer) > 60 06/12/18 06:00 Est GFR (Non-Af Amer) > 60 06/12/18 06:00 Random Glucose 103 mg/dL (70-110) 06/12/18 06:00 Hemoglobin A1c 5.3 % (4.2-6.5) 06/11/18 08:10 Calcium 8.6 mg/dL (8.4-10.5) 06/12/18 06:00 Phosphorus 3.2 mg/dL (2.5-4.5) 06/11/18 08:10 Magnesium 2.0 mg/dL (1.7-2.2) 06/11/18 08:10 Total Bilirubin 0.8 mg/dL (0.2-1.3) 06/12/18 06:00 AST 15 U/L (14-36) 06/12/18 06:00 ALT 16 U/L (7-56) 06/12/18 06:00 Alkaline Phosphatase 72 U/L (38-126) 06/12/18 06:00 Lactate Dehydrogenase 410 U/L (333-699) 06/10/18 23:15 Total Creatine Kinase 55 U/L (35-230) 06/10/18 23:15 Troponin I < 0.01 ng/mL 06/10/18 23:15 Total Protein 6.5 g/dL (5.8-8.3) 06/12/18 06:00 Albumin 3.6 g/dL (3.0-4.8) 06/12/18 06:00 Globulin 2.9 gm/dL 06/12/18 06:00 Albumin/Globulin Ratio 1.2 (1.1-1.8) 06/12/18 06:00 Triglycerides 108 mg/dL (35-160) 06/11/18 08:10 Cholesterol 175 mg/dL (130-200) 06/11/18 08:10 LDL Cholesterol Direct 123 mg/dL (0-129) 06/11/18 08:10 HDL Cholesterol 40 mg/dL (29-60) 06/11/18 08:10 Free T4 0.62 ng/dL (0.78-2.19) L 06/11/18 09:40 TSH 3rd Generation 7.11 mIU/mL (0.46-4.68) H 06/11/18 08:10 Urine Color Yellow (YELLOW) 06/11/18 23:03 Urine Appearance Clear (CLEAR) 06/11/18 23:03 Urine pH 6.5 (4.7-8.0) 06/11/18 23:03 Ur Specific [place] 1.010 (1.005-1.035) 06/11/18 23:03 Urine Protein Negative mg/dL (<30 mg/dL) 06/11/18 23:03 Urine Glucose (UA) Negative mg/dL (NEGATIVE) 06/11/18 23:03 Urine Ketones Negative mg/dL (NEGATIVE) 06/11/18 23:03 Urine Blood Negative (NEGATIVE) 06/11/18 23:03 Urine Nitrate Negative (NEGATIVE) 06/11/18 23:03 Urine Bilirubin Negative (NEGATIVE) 06/11/18 23:03 Urine Urobilinogen 0.2 E.U./dL (<1 E.U./dL) 06/11/18 23:03 Ur Leukocyte Esterase Trace [place]/uL (NEGATIVE) H 06/11/18 23:03 Urine RBC 0 - 2 /hpf (0-2) 06/11/18 23:03 Urine WBC 1 - 3 /hpf (0-6) 06/11/18 23:03 Ur Epithelial Cells Many /hpf (0-5) 06/11/18 23:03 Urine Bacteria Rare (NEG) 06/11/18 23:03 Urine HCG, Qual Negative (NEGATIVE) 06/11/18 23:03 Urine Opiates Screen Negative (NEGATIVE) 06/11/18 23:03 Urine Methadone Screen Negative (NEGATIVE) 06/11/18 23:03 Ur Barbiturates Screen Negative (NEGATIVE) 06/11/18 23:03 Ur Phencyclidine Scrn Negative (NEGATIVE) 06/11/18 23:03 Ur Amphetamines Screen Negative (NEGATIVE) 06/11/18 23:03 U Benzodiazepines Scrn Negative (NEGATIVE) 06/11/18 23:03 U Oth Cocaine Metabols Negative (NEGATIVE) 06/11/18 23:03 U Cannabinoids Screen Negative (NEGATIVE) 06/11/18 23:03 - Hospital Course Hospital Course: Upon admission Ms. Michael is a 27 year old female with a past medical history of paroxysmal A- fib and hypothyroidism who presented to the [facility] Emergency Department (ED) on 06/11 after a syncopal episode that occurred 12 hours prior to presentation at the ED. Patient stated that she felt light-headed, had palpitations, blacked out, and woke up on the floor. Patient stated that she began having left-sided chest pain after the syncopal episode. Patient stated the pain was dull, burning, and radiated down the left arm. On ROS, patient denied fever, chills, shortness of breath, dyspnea on exertion, nausea, vomiting, abdominal pain, numbness, tingling, or blurred vision. . Hospital course EKG, head CT, chest x-ray, echo, carotid artery ultrasound, and extremity ultrasound were ordered. Cardiology and neurology were consulted. Lipitor was started for high cholesterol, lovenox was started for DVT prophylaxis, meclizine was started for dizziness, zofran was started for nausea, protonix was started for GI prophylaxis, and ultram was started for pain. Synthroid was increased to 75 daily. EKG revealed HR 71 NSR with left axis deviation. Head CT was unremarkable. Chest x-ray revealed no active disease. The echo revealed left ventricle to be normal size and of normal wall thickness with normal function. Left ventricular ejection fraction was within the normal range. Carotid artery ultrasound revealed bilateral 0-19% proximal ICA stenoses with antegrade flow in both vertebral arteries. Repeat EKG revealed NSR with HR of 67, left axis deviation, non-specific ST T changes. Extremity ultrasound revealed no evidence for DVT. Repeat head CT revealed no acute findings. For a complete record of hospital stay, please refer to medical record. Discharge Exam - Head Exam Head Exam: ATRAUMATIC, NORMOCEPHALIC - Eye Exam Eye Exam: EOMI Pupil Exam: PERRL - ENT Exam ENT Exam: Mucous Membranes Moist - Neck Exam Neck exam: Normal Inspection - Respiratory Exam Respiratory Exam: Clear to PA & Lateral. absent: Accessory Muscle Use, Respiratory Distress - Cardiovascular Exam Cardiovascular Exam: REGULAR RHYTHM, +S1, +S2 - GI/Abdominal Exam GI & Abdominal Exam: Normal Bowel Sounds. absent: Firm, Guarding - Extremities Exam Extremities exam: normal inspection, pedal pulses present - Skin Skin Exam: Normal Color, Warm Discharge Plan - Discharge Medications Prescriptions: Levothyroxine [Synthroid] 75 mcg PO 0600 30 Days #30 tab Meclizine [Meclizine*] 25 mg PO Q8 PRN 6 Days #6 tab PRN Reason: Dizziness - Follow Up Plan Condition: STABLE Disposition: HOME/ ROUTINE Instructions: Chest Pain (GEN), Syncope (DC) Additional Instructions: Follow up with your outpatient stump shooter, Dr. Interiano, for loop recorder management within 7 days. Your cholesterol level was noted to be high. You are advised to eat low fat, low cholesterol diet with lots of vegetables and fruits. Recheck cholesterol levels in 2-3 months with your primary care doctor. Reassess need for cholesterol medication at that time with primary care doctor. Your thyroid levels were noted to be abnormal. Therefore, we increased your Synthroid to 75mcg daily. Please adhere to the medication regimen. Recheck your thyroid function tests in 4-6 weeks with your primary care doctor. Please notify your doctor of this medication change. Your are given meclizine for dizziness, take only as needed. Follow up with [facility] on June 25, 2018 3:30 PM to establish care with primary care doctor. You will need repeat thyroid function testing in 4-6 weeks. Prescription for vestibular testing for you dizziness has been given to you. Please follow up with an ENT physician for this testing. Return to the ER for return or worsening of symptoms. Referrals: Alex Interiano MD [Medical Doctor] - Lashanda Oshea MD [Medical Doctor] -
--- NOTE | 2018-06-12 16:55 | PN ---
DATE: 06/12/2018 SUBJECTIVE: The patient denies any palpitation or dizziness. PHYSICAL EXAMINATION: VITAL SIGNS: Blood pressure 107/67, heart rate 61, temperature 97.7 and respirations 20. HEENT: Normocephalic. CHEST: Clear. HEART: S1 and S2 regular. EXTREMITIES: No edema. LABORATORY DATA: Today's hemoglobin, hematocrit, white count and platelet count are within normal limits. Today's SMA-7 is within normal limit. Repeat head CT scan, no acute abnormality. Venous Doppler of the lower extremity is unremarkable. Carotid Doppler is unremarkable. Echocardiography study was a normal study. ASSESSMENT AND PLAN: 1. Syncopal episode, consider vasovagal syncope. 2. Reported history of paroxysmal atrial fibrillation according to the patient's history and as per her primary electrical logger, Dr. Interiano. 3. Hypothyroidism. The patient's case was discussed with the Medical Team. Continue Synthroid 75 mcg daily, which was increased today. Continue Lipitor 10 mg once a day. The patient can be discharged to follow up by her primary electrical logger Dr. Interiano. Paresh Davila MD
== END 2018-06-12 16:42 | disposition home or self-care (01) ==
LOC: ED 22:38 → ERH 06-11 02:37 → 3RSO 06-11 04:03
PROVIDERS: ADMIT Internal Medicine; ATTEND Internal Medicine
DX: R55 Syncope and collapse (principal); R07.89 Other chest pain; R42 Dizziness and giddiness; I48.0 Paroxysmal atrial fibrillation; E03.9 Hypothyroidism, unspecified; E66.01 Morbid (severe) obesity due to excess calories; Z68.39 Body mass index [BMI] 39.0-39.9, adult; Z88.0 Allergy status to penicillin; Z88.2 Allergy status to sulfonamides
CPT/HCPCS: 36415; 70450; 70460; 71045; 80053; 80061; 81001; 82550; 83036; 83615; 83735; 84100; 84439; 84443; 84484; 84703; 85025; 85027; 85378; 85610; 85730; 93005; 93306; 93880; 93970; 96372; 97116; 97161; 99285; G0378; G0480; G8978; G8979; G8980; J1650; J7030; Q9967

== ENCOUNTER 2018-06-16 15:30 | Emergency (ER) | payer MEDICAID, OTHER ==
[2018-06-16 15:30] VITALS: BMI 39.6
[2018-06-16 15:52] VITALS: RESP 18
--- NOTE | 2018-06-16 16:11 | ED PDOC ---
Arrival/HPI - General Chief Complaint: Chest Pain Time Seen by Provider: 06/16/18 15:42 Historian: Patient - History of Present Illness Narrative History of Present Illness (Text): 06/16/18 16:21 A 27 year old female, whose past medical history includes vertigo, a-fib, cholecystectomy, merrick recorder, and syncope, presents to the emergency department complaining of central sharp chest pain radiating to left arm and left leg. Patient reports she was here last week for similar complaint. Had tests performed, which showed to be negative for possible [place]. States taking Tylenol and Motrin had no relief with either medication. Notes also experiencing nausea and dizziness. Patient denies any vomiting, or any other complaints at this time. No PMD Past Medical History - Provider Review Nursing Documentation Reviewed: Yes - Infectious Disease Hx of Infectious Diseases: None - Tetanus Immunization Tetanus Immunization: Unknown - Cardiac Hx Cardiac Disorders: Yes (A-fib) Hx Atrial Fibrillation: Yes - Pulmonary Hx Respiratory Disorders: No - Neurological Hx Neurological Disorder: Yes (Syncopal episodes) Hx Dizziness: Yes Hx Vertigo: Yes - HEENT Hx HEENT Disorder: No - Renal Hx Renal Disorder: No - Endocrine/Metabolic Hx Hypothyroidism: Yes - Hematological/Oncological Hx Blood Disorders: No - Integumentary Hx Dermatological Disorder: No - Musculoskeletal/Rheumatological Hx Musculoskeletal Disorders: No Hx Falls: Yes - Gastrointestinal Hx Gastrointestinal Disorders: No - Genitourinary/Gynecological Hx Genitourinary Disorders: No - Psychiatric Hx Psychophysiologic Disorder: No Hx Substance Use: No - Surgical History Hx Cholecystectomy: Yes - Anesthesia Hx Anesthesia: No Hx Anesthesia Reactions: No Hx Malignant Hyperthermia: No Family/Social History - Physician Review Nursing Documentation Reviewed: Yes Family/Social History: No Known Family HX Smoking Status: Never Smoked Hx Alcohol Use: Yes Hx Substance Use: No Allergies/Home Meds Allergies/Adverse Reactions: Allergies Penicillins Allergy (Verified 06/16/18 15:35) RASH Sulfa (Sulfonamide Antibiotics) Allergy (Verified 06/16/18 15:35) RASH Review of Systems - Physician Review All systems were reviewed & negative as marked: Yes - Review of Systems Cardiovascular: Chest Pain Gastrointestinal: Nausea. absent: Vomiting Musculoskeletal: Other (left arm pain raidating from chest pain, and left leg pain) Neurological: Dizziness Physical Exam Vital Signs Reviewed: Yes Vital Signs Temp Pulse Resp BP Pulse Ox 06/16/18 15:40 98.1 F 91 H 18 155/72 H 95 Temperature: Afebrile Blood Pressure: Normal Pulse: Regular Respiratory Rate: Normal Appearance: Positive for: Well-Appearing, Non-Toxic, Comfortable Pain Distress: None Mental Status: Positive for: Alert and Oriented X 3 - Systems Exam Head: Present: Atraumatic, Normocephalic Pupils: Present: PERRL Extroacular Muscles: Present: EOMI Conjunctiva: Present: Normal Mouth: Present: Moist Mucous Membranes Neck: Present: Normal Range of Motion Respiratory/Chest: Present: Clear to Auscultation, Good Air Exchange. No: Respiratory Distress, Accessory Muscle Use Cardiovascular: Present: Regular Rate and Rhythm, Normal S1, S2. No: Murmurs Abdomen: No: Tenderness, Distention, Peritoneal Signs Back: Present: Normal Inspection Upper Extremity: Present: Normal Inspection, Other (pain when lifting left arm.). No: Cyanosis, Edema Lower Extremity: Present: Normal Inspection. No: Edema Neurological: Present: GCS=15, CN II-XII Intact, Speech Normal Skin: Present: Warm, Dry, Normal Color. No: Rashes Psychiatric: Present: Alert, Oriented x 3, Normal Insight, Normal Concentration Medical Decision Making ED Course and Treatment: 06/16/18 16:23 Impression: 27 year old female with central sharp chest pain radiating to left arm/leg. Plan: -- CXR -- Valium -- Toradol -- Reassess and disposition Prior Visits: Notes and results from previous visits were reviewed. Patient was last seen here the ER on 06/11/2018 on chest pain. Patient was admitted. Progress Notes: 06/16/18 17:28 Patient is resting comfortably and sleeping at this time. Chest X-ray findings are negative. Patient to be discharged home. - Scribe Statement The provider has reviewed the documentation as recorded by the Jose Guadalupe Lobo Provider Scribe Attestation: All medical record entries made by the Scribe were at my direction and personally dictated by me. I have reviewed the chart and agree that the record accurately reflects my personal performance of the history, physical exam, medical decision making, and the department course for this patient. I have also personally directed, reviewed, and agree with the discharge instructions and disposition. Disposition/Present on Arrival - Present on Arrival Any Indicators Present on Arrival: No History of DVT/PE: No History of Uncontrolled Diabetes: No Urinary Catheter: No History of Decub. Ulcer: No History Surgical Site Infection Following: None - Disposition Have Diagnosis and Disposition been Completed?: Yes Diagnosis: Musculoskeletal chest pain Disposition: HOME/ ROUTINE Disposition Time: 17:55 Condition: GOOD Discharge Instructions (ExitCare): Costochondritis, Chest Pain (ED) Prescriptions: Cyclobenzaprine [Cyclobenzaprine HCl] 10 mg PO Q8 5 Days #15 tab Ibuprofen [Motrin] 600 mg PO Q6 5 Days #20 tab Referrals: [facility] [place] [Outside] - Follow up with primary [facility] [Outside] - Follow up with primary [facility] [place] [Outside] - Follow up with primary Forms: [employer] (Thai)
--- NOTE | 2018-06-16 17:10 | RAD ---
Date of service: 06/16/2018 HISTORY: chest pain COMPARISON: 06/10/2018. FINDINGS: LUNGS: The lungs are well inflated and clear. PLEURA: No pleural effusions or pneumothorax. CARDIOVASCULAR: The heart is normal in size. No aortic atherosclerotic calcification present. OSSEOUS STRUCTURES: Within normal limits for the patient's age. VISUALIZED UPPER ABDOMEN: Normal. OTHER FINDINGS: None. IMPRESSION: No active pulmonary disease.
[2018-06-16 17:54] VITALS: BP 110/63; PULSE 82; TEMP 97.6; O2SAT 100
--- NOTE | 2018-06-17 10:39 | CARD ---
APPROVED REPORT Date of service: 06/16/2018 EKG Measurement Heart [id number] <Conclusion> Normal sinus rhythm Left axis deviation Low voltage QRS Cannot rule out Anterior infarct, age undetermined Abnormal ECG
== END 2018-06-16 17:55 | disposition home or self-care (01) ==
LOC: ED 15:30
DX: R07.89 Other chest pain (principal); I48.91 Unspecified atrial fibrillation
CPT/HCPCS: 71045; 93005; 96374; 99284; J1885

== ENCOUNTER 2018-11-21 08:46 | Emergency (ER) | payer MEDICAID ==
[2018-11-21 08:46] VITALS: BMI 39.6
[2018-11-21 09:27] VITALS: TEMP 98.2
[2018-11-21] MEDS ORDERED: Sodium Chloride 0.9% 1,000 ML IV STA (09:36)
[2018-11-21 09:44] LABS: URINE BILIRUBIN NEGATIVE (NEGATIVE); URINE BLOOD LARGE (NEGATIVE); URINE GLUCOSE (UA) NEGATIVE (NEGATIVE); URINE LEUKOCYTE ESTERASE NEGATIVE Leu/uL (NEGATIVE); URINE PROTEIN 30 mg/dL (<30 mg/dL); URINE UROBILINOGEN 0.2 E.U./dL (<1 E.U./dL)
[2018-11-21 09:47] LABS: URINE APPEARANCE TURBID (CLEAR); URINE COLOR YELLOW (YELLOW)
[2018-11-21 09:58] LABS: URINE BACTERIA FEW /hpf
[2018-11-21 09:58] LABS: BASO # 0.04 K/mm3 (0.0-2.0); BASO % 0.7 % (0.0-3.0); EOS # 0.1 (0.0-0.7); EOS % 1.4 % (1.5-5.0); LYMPH # 1.7 (1.2-3.4); LYMPH % 28.3 % (22.0-35.0); MEAN CELL VOLUME 86.1 fl (80.0-105.0); MEAN CORPUSCULAR HGB CONC 33.7 g/dl (31.0-37.0); MEAN PLATELET VOLUME 9.9 fl (7.0-11.0); MONO # 0.4 (0.1-0.6); MONO % 6.8 % (1.0-6.0); RBC 4.83 10^6/uL (3.5-6.1); RED CELL DISTRIBUTION WIDTH 12.6 % (11.5-14.5); WHITE BLOOD COUNT 5.9 10^3/uL (4.5-11.0)
[2018-11-21 10:05] LABS: ALB/GLOB RATIO 1.2 (1.1-1.8); ALBUMIN 4.3 g/dL (3.0-4.8); ALT/SGPT 13 U/L (7-56); AST/SGOT 19 U/L (14-36); BLOOD UREA NITROGEN 15 mg/dL (7-21); CALCIUM 9.4 mg/dL (8.4-10.5); GFR NON-AFRICAN AMERICAN > 60; LIPASE 85 U/L (23-300)
[2018-11-21 10:17] LABS: TROPONIN I < 0.01 ng/mL
--- NOTE | 2018-11-21 10:25 | RAD ---
Date of service: 11/21/2018 HISTORY: chest pain COMPARISON: 06/16/2018 TECHNIQUE: 1 view obtained. FINDINGS: LUNGS: No active pulmonary disease. PLEURA: No significant pleural effusion identified, no pneumothorax apparent. CARDIOVASCULAR: No aortic atherosclerotic calcification present. Normal cardiac size. No pulmonary vascular congestion. OSSEOUS STRUCTURES: No significant abnormalities. VISUALIZED UPPER ABDOMEN: Normal. OTHER FINDINGS: None. IMPRESSION: No active disease.
[2018-11-21 10:34] LABS: B-TYPE NATRIURETIC PEPTIDE 25.1 pg/mL (0-450)
--- NOTE | 2018-11-21 10:41 | ED PDOC ---
Arrival/HPI - General Chief Complaint: Chest Pain Time Seen by Provider: 11/21/18 09:04 Historian: Patient - History of Present Illness Narrative History of Present Illness (Text): 11/21/18 10:38 27-year-old female with a history of paroxysmal atrial fibrillation and hypothyroidism presents today with a 2-day history of intermittent midsternal chest pain radiating to the left arm. Patient describes the pain as a sharp sensation. Patient denies shortness of breath. She denies fevers or chills. Patient states she has had multiple episodes of vomiting in the past 2 days. Patient denies syncopal episode. Patient denies abdominal pain. No diarrhea. No fevers or chills. No URI symptoms. No other complaints. Past Medical History - Provider Review Nursing Documentation Reviewed: Yes - Travel History Have you recently traveled outside [place] w/in the past 3 mons?: No - Infectious Disease Hx of Infectious Diseases: None - Tetanus Immunization Tetanus Immunization: Unknown - Cardiac Hx Cardiac Disorders: Yes (A-fib) Hx Atrial Fibrillation: Yes - Pulmonary Hx Respiratory Disorders: No - Neurological Hx Neurological Disorder: Yes (Syncopal episodes) Hx Dizziness: Yes Hx Vertigo: Yes - HEENT Hx HEENT Disorder: No - Renal Hx Renal Disorder: No - Endocrine/Metabolic Hx Hypothyroidism: Yes - Hematological/Oncological Hx Blood Disorders: No - Integumentary Hx Dermatological Disorder: No - Musculoskeletal/Rheumatological Hx Musculoskeletal Disorders: No Hx Falls: Yes - Gastrointestinal Hx Gastrointestinal Disorders: No - Genitourinary/Gynecological Hx Genitourinary Disorders: No - Psychiatric Hx Psychophysiologic Disorder: No Hx Substance Use: No - Surgical History Hx Cholecystectomy: Yes Other/Comment: loop recorder - Anesthesia Hx Anesthesia: Yes Hx Anesthesia Reactions: No Hx Malignant Hyperthermia: No Family/Social History - Physician Review Nursing Documentation Reviewed: Yes Family/Social History: Unknown Family HX Smoking Status: Never Smoked Hx Alcohol Use: Yes Hx Substance Use: No Allergies/Home Meds Allergies/Adverse Reactions: Allergies Penicillins Allergy (Verified 11/21/18 09:21) RASH Sulfa (Sulfonamide Antibiotics) Allergy (Verified 11/21/18 09:21) RASH Home Medications: Home Meds Medication Instructions Recorded Confirmed Aspirin [Aspirin Chewable] 81 mg PO PRN PRN 11/21/18 11/21/18 Levothyroxine [Synthroid] 50 mcg PO 0600 11/21/18 11/21/18 Review of Systems - Review of Systems Constitutional: absent: Fatigue, Fevers ENT: absent: Sore Throat, Sinus Congestion Respiratory: absent: SOB, Cough Cardiovascular: Chest Pain. absent: Palpitations Gastrointestinal: Nausea, Vomiting. absent: Abdominal Pain, Constipation, Diarrhea Genitourinary Female: absent: Dysuria, Frequency, Hematuria Musculoskeletal: absent: Arthralgias, Back Pain, Neck Pain Skin: absent: Rash, Pruritis Neurological: absent: Headache, Dizziness Psychiatric: absent: Anxiety, Depression, Suicidal Ideation Physical Exam Vital Signs Reviewed: Yes Vital Signs Temp Pulse Resp BP BP Pulse Ox 11/21/18 09:35 104/66 11/21/18 09:10 98.2 F 72 18 104/66 100 Temperature: Afebrile Blood Pressure: Normal Pulse: Regular Respiratory Rate: Normal Appearance: Positive for: Well-Appearing, Non-Toxic, Comfortable Pain Distress: None Mental Status: Positive for: Alert and Oriented X 3 - Systems Exam Head: Present: Atraumatic Mouth: Present: Moist Mucous Membranes Neck: Present: Normal Range of Motion Respiratory/Chest: Present: Clear to Auscultation, Good Air Exchange. No: Respiratory Distress, Accessory Muscle Use Cardiovascular: Present: Regular Rate and Rhythm, Normal S1, S2. No: Murmurs Abdomen: No: Tenderness, Distention, Peritoneal Signs Back: Present: Normal Inspection Upper Extremity: Present: Normal ROM Lower Extremity: Present: Normal ROM Neurological: Present: GCS=15, Speech Normal Skin: Present: Warm, Dry, Normal Color. No: Rashes Psychiatric: Present: Alert, Oriented x 3 Medical Decision Making ED Course and Treatment: 11/21/18 10:40 Pt with chest pain ; vitals are stable. Patient nontoxic well-appearing no distress. cbc; wnl cmp; wnl DImer; wnl BNP; wnl trop:wnl ekg; normal sinus rhythm at 72 bpm normal axis no ST elevations QTC 422 cxr: wnl pt reassessment; pt is non toxic well appearing; no distress. 2nd 3 hr trop; at 12:40: wnl pt reassessment; pt is non toxic well appearing; no distress. stable vitals. all results discussed with patient in depth. pt eating and drinking in er. no vomiting. no distress. case discussed with dr. cardoso. Heart score; 1 will d/c home to f/u with PMD and General Road Supervisor within the next 2 days. Patient verbalizes understanding of discharge instructions and need for immediate followup. All aspects of this case were discussed the attending of record. impression; chest pain take your Aspirin daily. follow up with the generator technician within the next 2 days. return immediately if symptoms worsen, persist or if new symptoms develop. Reassessment Condition: Re-examined, Improved - Lab Interpretations Lab Results: D-Dimer, Quantitative < 200 ng/mlDDU (0-243) 11/21/18 09:41 Troponin I < 0.01 ng/mL 11/21/18 09:41 NT-Pro-B Natriuret Pep 25.1 pg/mL (0-450) 11/21/18 09:41 Total Bilirubin 1.0 mg/dL (0.2-1.3) 11/21/18 09:41 AST 19 U/L (14-36) 11/21/18 09:41 ALT 13 U/L (7-56) 11/21/18 09:41 Alkaline Phosphatase 73 U/L (38-126) 11/21/18 09:41 Total Protein 7.7 g/dL (5.8-8.3) 11/21/18 09:41 Albumin 4.3 g/dL (3.0-4.8) 11/21/18 09:41 Globulin 3.4 gm/dL 11/21/18 09:41 Albumin/Globulin Ratio 1.2 (1.1-1.8) 11/21/18 09:41 Lipase 85 U/L (23-300) 11/21/18 09:41 Urine Color Yellow (YELLOW) 11/21/18 09:30 Urine Appearance Turbid (CLEAR) 11/21/18 09:30 Urine pH 6.0 (4.7-8.0) 11/21/18 09:30 Ur Specific [place] >= 1.030 (1.005-1.035) 11/21/18 09:30 Urine Protein 30 mg/dL (<30 mg/dL) H 11/21/18 09:30 Urine Glucose (UA) Negative mg/dL (NEGATIVE) 11/21/18 09:30 Urine Ketones Negative mg/dL (NEGATIVE) 11/21/18 09:30 Urine Blood Large (NEGATIVE) H 11/21/18 09:30 Urine Nitrate Negative (NEGATIVE) 11/21/18 09:30 Urine Bilirubin Negative (NEGATIVE) 11/21/18 09:30 Urine Urobilinogen 0.2 E.U./dL (<1 E.U./dL) 11/21/18 09:30 Ur Leukocyte Esterase Negative Mary Anne/uL (NEGATIVE) 11/21/18 09:30 Urine RBC 1 - 3 /hpf (0-2) H 11/21/18 09:30 Urine WBC 1 - 3 /hpf (0-6) 11/21/18 09:30 Ur Epithelial Cells 6 - 8 /hpf (0-5) H 11/21/18 09:30 Urine Bacteria Few /hpf (NONE) 11/21/18 09:30 - RAD Interpretation Radiology Orders: 11/21/18 09:31 CHEST PORTABLE [RAD] Stat - Medication Orders Current Medication Orders: Discontinued Medications Sodium Chloride (Sodium Chloride 0.9%) 1,000 mls @ 999 mls/hr IV .Q1H1M STA Stop: 11/21/18 10:36 Last Admin: 11/21/18 10:29 Dose: 999 mls/hr eMAR Start Stop Document 11/21/18 10:29 BB (Rec: 11/21/18 10:30 BB [id number]) Intravenous Solution Start Date 11/21/18 Start Time 10:00 Pantoprazole Sodium (Protonix Inj) 40 mg IVP STAT STA Stop: 11/21/18 09:37 Last Admin: 11/21/18 10:30 Dose: 40 mg IVP Administration Document 11/21/18 10:30 BB (Rec: 11/21/18 10:30 BB [id number]) Charges for Administration # of IVP Administrations 1 Disposition/Present on Arrival - Present on Arrival Any Indicators Present on Arrival: No History of DVT/PE: No History of Uncontrolled Diabetes: No Urinary Catheter: No History of Decub. Ulcer: No History Surgical Site Infection Following: None - Disposition Have Diagnosis and Disposition been Completed?: Yes Diagnosis: Chest pain Disposition: HOME/ ROUTINE Disposition Time: 10:41 Patient Plan: Discharge Patient Problems: Current Active Problems Problem Status Onset Chest pain Acute Condition: GOOD Discharge Instructions (ExitCare): Chest Pain (ED) Additional Instructions: take your Aspirin daily. follow up with the generator technician within the next 2 days. return immediately if symptoms worsen, persist or if new symptoms develop. Referrals: Servando Muro MD [Staff Provider] - Follow up with primary [facility] [Outside] - Follow up with primary Lashanda Oshea MD [Medical Doctor] - Follow up with primary Forms: [facility] (Telugu), SCHOOL NOTE, WORK NOTE
[2018-11-21 14:12] VITALS: BP 116/74; PULSE 78; RESP 18; O2SAT 97
--- NOTE | 2018-11-21 19:51 | CARD ---
APPROVED REPORT Date of service: 11/21/2018 EKG Measurement Heart [id number] <Conclusion> Normal sinus rhythm Normal ECG
== END 2018-11-21 14:13 | disposition home or self-care (01) ==
LOC: ED 08:46
DX: R07.9 Chest pain, unspecified (principal); I48.0 Paroxysmal atrial fibrillation
CPT/HCPCS: 71045; 80053; 81001; 81025; 82550; 83615; 83690; 83880; 84484; 85025; 85378; 93005; 96374; 99284; C9113; J7030